=== PATIENT | male | born 1960 | race Caucasian/White ===

== ENCOUNTER 2016-07-06 09:27 | Inpatient (IN) | payer OTHER ==
[~2016-07-06] VITALS: Ht 170.2 cm; Wt 75.0 kg
[2016-07-06] VITALS (24 sets, daily range): BP systolic 125–150; BP diastolic 73–89; PULSE 60–80; RESP 14–26; Ht 170.2 cm; Wt 75.0 kg
[~2016-07-06 09:27] MED LIST: AMPICILLIN/SULB 3 GM/NS (PMX) 100 ML IVPB SCH; Metronidazole 500 MG in NS 100 ML IVPB SCH
[2016-07-06] MEDS ORDERED: IBUP-1542 PO (11:05)
[2016-07-06] MEDS ORDERED: PANT40TA4 PO (11:05)
[2016-07-06] MEDS ORDERED: ATEN-51 PO (11:05)
[2016-07-06] MEDS ORDERED: LEVO75TA5 PO (11:05)
[2016-07-06] MEDS ORDERED: FENO45CA2 PO (11:05)
[2016-07-06] MEDS ORDERED: OMEP20CA16 PO (11:05)
[2016-07-06] MEDS ORDERED: TRAZ100T15 PO (11:05)
[2016-07-06] MEDS ORDERED: SIMV40TA2 PO (11:05)
[2016-07-06] MEDS ORDERED: LIDOCAINE 2% (SDV) 5 ML INJ ONE (16:32)
[2016-07-06] MEDS ORDERED: GLYCOPYRROLATE 0.4 MG INJ ONE ×2 (16:32→17:01)
[2016-07-06] MEDS ORDERED: MEPERIDINE 100 MG INJ ONE (16:32)
[2016-07-06] MEDS ORDERED: ROCURONIUM 50 MG INJ ONE (16:32)
[2016-07-06] MEDS ORDERED: NEOSTIGMINE 3 MG/3 ML SYRINGE ONE ×2 (16:32→17:01)
[2016-07-06] MEDS ORDERED: PROPOFOL 20 ML ONE (16:32)
[2016-07-06] MEDS ORDERED: SUCCINYLCHOLINE CHLORIDE 100 MG/5 ML SYG IV ONE (16:32)
[2016-07-06] MEDS ORDERED: BUPIVACAINE 0.25% (MPF) 30 ML INJ ONE (19:15)
[2016-07-06] MEDS: SOD CHLORIDE 0.9% 1,000 ML IV SCH ×2 (19:20→22:00)
[2016-07-06] MEDS ORDERED: AMPICILLIN/SULB 3 GM/NS (PMX) 100 ML IVPB SCH (19:30)
[2016-07-06] MEDS ORDERED: metroNIDAZOLE 500 MG/NS (PMX) 100 ML IVPB SCH (19:30)
[2016-07-06] MEDS ORDERED: FENTAnyl 50 MCG/ML VIAL ONE (19:51)
[2016-07-06] MEDS ORDERED: HYDROmorphONE (0.2 MG/ML) 10ML SYG IV ONE (19:51)
[2016-07-06] MEDS: FENTAnyl 50 MCG/ML VIAL IV PRN ×2 (19:59→20:28)
[2016-07-06] MEDS: HYDROmorphONE (0.2 MG/ML) 10ML SYG IV PRN ×2 (19:59→20:27)
[2016-07-06] MEDS ORDERED: morphine (1 MG/ML) 10ML SYRINGE IV PRN ×2 (20:00)
[2016-07-06] MEDS ORDERED: LABETALOL HCL 20MG INJ IV PRN (20:00)
[2016-07-06] MEDS ORDERED: METOCLOPRAMIDE 10 MG INJ IV PRN (20:00)
[2016-07-06] MEDS ORDERED: NALOXONE (0.4 MG/ML) INJ IV PRN (20:00)
[2016-07-06] MEDS ORDERED: ONDANSETRON 4 MG INJ IV PRN (20:00)
[2016-07-06] MEDS ORDERED: EPHEDrine SULFATE 50 MG/5 ML SYG IV PRN (20:00)
[2016-07-06] MEDS ORDERED: DIPHENHYDRAMINE 50 MG INJ IV PRN (20:00)
[2016-07-06] MEDS ORDERED: HYDROmorphONE (0.2 MG/ML) 10ML SYG IV PRN (20:00)
[2016-07-06] MEDS ORDERED: FENTAnyl 50 MCG/ML VIAL IV PRN (20:00)
[2016-07-06] MEDS ORDERED: hydrALAzine 20 MG INJ IV PRN (20:00)
[2016-07-06] MEDS ORDERED: MEPERIDINE 25 MG INJ IV PRN (20:00)
[2016-07-06] MEDS ORDERED: KETOROLAC 30 MG INJ IV PRN (20:00)
[2016-07-06] MEDS ORDERED: MIDAZOLAM 1 MG/ML 2 ML INJ IV PRN (20:00)
--- NOTE | 2016-07-06 20:17 | OPR ---
DATE OF OPERATION: 07/06/2016 INDICATION: This is a 55-year-old male with colostomy, he is somewhat a poor historian. However, beau freeman had a colon infection and ended up with an end colostomy. He underwent preoperative imaging with a barium enema and colostomy with contrast showing a loop colostomy. Risks, alternatives, benefits, and personnel were discussed with the patient. The patient expressed understanding and consents to the operation. PREOPERATIVE DIAGNOSIS: Colostomy status. POSTOPERATIVE DIAGNOSIS: Colostomy status. OPERATION PERFORMED: 1. Exploratory laparotomy. 2. Lysis of adhesions approximately 2 hours. 3. Distal partial colectomy. 4. Reversal colostomy with primary colorectal anastomosis. SURGEON: Radha Adkins MD SPECIMEN: Partial colon. COMPLICATIONS: None. ANESTHESIA: General. DESCRIPTION OF PROCEDURE: The patient was taken to the OR and prepped and draped in usual sterile f ashion. Surgical timeout was performed. IV antibiotics were given. Attention was paid to the colo stomy. This was closed with a running 2-0 silk. The colostomy was taken down by excising small 0.5 cm tissue around the colostomy site and all the way down to the fascia. The midline incision was o pened after excising the midline cicatrix. Dissection cautery was carried down to the fascia. The fascia was opened, grasped with Kochers on each side of midline, and sharply with a 10 blade. This incision was opened up in the midline. There appeared to be multiple areas of severe adhesions and there were 2 enterotomies that were closed primarily with a 2-layer technique with running 3-0 PDS a nd interrupted 3-0 silk. The colostomy takedown was performed. The colostomy site was closed with running #1 PDS. The afferent and efferent portions of the colostomy were identified. This area was reanastomosed using a [id number] functional end-to-end using a 75 mm blue load YAEL stapler. The distal colostomy and colon was then resected using scissors. Hemostasis was established. The resul tant enterotomy from the anastomosis was closed with a 2-layer handsewn technique with running 3-0 P DS and interrupted 3-0 silk. There was good hemostasis. Due to minimal spillage, a #19 Jl drain was placed in the right lower quadrant. There was good anastomosis. The midline incision was clos ed with a running loop PDS from superior to inferior and inferior to superior. The skin was closed after Betadine with skin erick. The ostomy site was irrigated with Betadine and then closed parti ally with a running circular 2-0 Vicryl. This area was packed. Local anesthesia was injected to al l incision sites. Dry dressings were applied. Dictated By: RADHA ADKINS MD SB/INOCENCIO Conf#: [id number] DID#: [id number] CC: CAITLIN LEE MD;*EndCC*
[2016-07-06] MEDS: morphine 1 MG/ML 30 ML (PCA) IV SCH (20:32)
[2016-07-06] MEDS: LACTATED RINGER'S 1,000 ML IV SCH (22:30)
[2016-07-06 23:13] LABS: ADD SCAN DIFF NO
[2016-07-06 23:14] LABS: BASOPHILS % 0.2 % (0.0-2.0); EOSINOPHILS % 0.2 % (0.0-7.0); HEMATOCRIT 38.7 % (42.0-52.0); HEMOGLOBIN 13.3 g/dl (14.0-18.0); LYMPHOCYTES # 1.1 10^3/ul (0.8-2.9); LYMPHOCYTES % 8.5 % (15.0-51.0); MEAN CORPUSCULAR HEMOGLOBIN 30.3 pg (29.0-33.0); MEAN CORPUSCULAR HGB CONC 34.4 g/dl (32.0-37.0); MEAN CORPUSCULAR VOLUME 88.2 fl (82.0-101.0); MEAN PLATELET VOLUME 9.7 fl (7.4-10.4); MONOCYTE # 0.8 10^3/ul (0.3-0.9); MONOCYTES % 5.9 % (0.0-11.0); NEUTROPHILS % 84.9 % (39.0-77.0); PLATELET COUNT 276 10^3/UL (140-415); RED BLOOD COUNT 4.39 10^6/ul (4.70-6.10); RED CELL DISTRIBUTION WIDTH 12.7 % (11.5-14.5); WHITE BLOOD COUNT 12.9 10^3/ul (4.8-10.8)
[2016-07-06 23:23] LABS: ALBUMIN 4.1 g/dl (3.3-4.9); POTASSIUM 3.7 mmol/L (3.5-5.1)
[2016-07-06 23:26] LABS: ALBUMIN/GLOBULIN RATIO 1.28; BILIRUBIN,INDIRECT 1.5 mg/dl (0-1.1); BILIRUBIN,TOTAL 1.5 mg/dl (0.2-1.3); CREATININE 0.69 mg/dl (0.61-1.24); TOTAL PROTEIN 7.3 g/dl (6.1-8.1)
[2016-07-06 23:27] LABS: CALCIUM 8.4 mg/dl (8.4-10.2)
[2016-07-06] MEDS: metroNIDAZOLE 500 MG/NS (PMX) 100 ML IVPB SCH (23:57)
[2016-07-07 00:03] VITALS: BP 134/79; RESP 20
[2016-07-07] MEDS: AMPICILLIN/SULB 3 GM/NS (PMX) 100 ML IVPB SCH ×5 (01:23→17:00)
[2016-07-07] MEDS: LACTATED RINGER'S 1,000 ML IV SCH ×3 (04:57→16:59)
[2016-07-07 05:42] LABS: ADD SCAN DIFF NO
[2016-07-07 05:47] LABS: BASOPHILS % 0.2 % (0.0-2.0); HEMATOCRIT 39.8 % (42.0-52.0); HEMOGLOBIN 13.3 g/dl (14.0-18.0); LYMPHOCYTES # 0.8 10^3/ul (0.8-2.9); LYMPHOCYTES % 6.3 % (15.0-51.0); MEAN CORPUSCULAR HEMOGLOBIN 29.7 pg (29.0-33.0); MEAN CORPUSCULAR HGB CONC 33.4 g/dl (32.0-37.0); MEAN CORPUSCULAR VOLUME 88.8 fl (82.0-101.0); MEAN PLATELET VOLUME 9.8 fl (7.4-10.4); MONOCYTE # 0.8 10^3/ul (0.3-0.9); MONOCYTES % 6.1 % (0.0-11.0); NEUTROPHIL # 10.9 10^3/ul (1.6-7.5); NEUTROPHILS % 87.1 % (39.0-77.0); PLATELET COUNT 300 10^3/UL (140-415); RED BLOOD COUNT 4.48 10^6/ul (4.70-6.10); RED CELL DISTRIBUTION WIDTH 12.7 % (11.5-14.5); WHITE BLOOD COUNT 12.5 10^3/ul (4.8-10.8)
[2016-07-07 06:52] LABS: ALBUMIN 4.3 g/dl (3.3-4.9)
[2016-07-07 06:55] LABS: ALBUMIN/GLOBULIN RATIO 1.22; BILIRUBIN,INDIRECT 1.5 mg/dl (0-1.1); BILIRUBIN,TOTAL 1.5 mg/dl (0.2-1.3); CREATININE 0.64 mg/dl (0.61-1.24); TOTAL PROTEIN 7.8 g/dl (6.1-8.1)
[2016-07-07 06:56] LABS: CALCIUM 8.7 mg/dl (8.4-10.2)
[2016-07-07] MEDS: morphine 1 MG/ML 30 ML (PCA) IV SCH ×2 (07:36→22:08)
[2016-07-07] MEDS: metroNIDAZOLE 500 MG/NS (PMX) 100 ML IVPB SCH ×3 (07:55→23:16)
[2016-07-07 08:24] VITALS: BP 119/77; RESP 18
--- NOTE | 2016-07-07 09:17 | PN ---
Date/Time of Note Date/Time of Note DATE: 07/07/16 TIME: 09:16 Assessment/Plan VTE Prophylaxis VTE Prophylaxis Intervention: SCD's Lines/Catheters IV Catheter Type (from Nrs): Peripheral IV Urinary Cath still in place: Yes Reason Cath still needed: other (indicate) Assessment/Plan Chief Complaint/Hosp Course s/p exp lap reversal of colostomy Problems: Assessment/Plan await bowel function Subjective 24 Hr Interval Summary Free Text/Dictation no issues overnight doing well Exam/Review of Systems Vital Signs Vitals Vital Signs Date Time Temp Pulse Resp B/P Pulse Ox O2 Delivery O2 Flow Rate FiO2 07/07/16 08:24 98.1 87 18 119/77 97 07/06/16 23:00 Nasal Cannula 2.0 Intake and Output 07/06/16 07/06/16 07/07/16 15:00 23:00 07:00 Intake Total 700 ml Output Total 535 ml 1035 ml Balance -535 ml -335 ml Exam dressing intact Results Result Diagram: 07/07/16 0452 07/07/16 0452 Results 24 hrs Laboratory Tests Test 07/06/16 22:45 07/07/16 04:52 White Blood Count 12.9 H 12.5 H Red Blood Count 4.39 L 4.48 L Hemoglobin 13.3 L 13.3 L Hematocrit 38.7 L 39.8 L Mean Corpuscular Volume 88.2 88.8 Mean Corpuscular Hemoglobin 30.3 29.7 Mean Corpuscular Hemoglobin Concent 34.4 33.4 Red Cell Distribution Width 12.7 12.7 Platelet Count 276 300 Mean Platelet Volume 9.7 9.8 Neutrophils % 84.9 H 87.1 H Lymphocytes % 8.5 L 6.3 L Monocytes % 5.9 6.1 Eosinophils % 0.2 0.0 Basophils % 0.2 0.2 Nucleated Red Blood Cells % 0.0 0.0 Neutrophils # 11.0 H 10.9 H Lymphocytes # 1.1 0.8 Monocytes # 0.8 0.8 Eosinophils # 0.0 0.0 Basophils # 0.0 0.0 Nucleated Red Blood Cells # 0.0 0.0 Sodium Level 140 141 Potassium Level 3.7 4.0 Chloride Level 106 103 Carbon Dioxide Level 24 25 Anion Gap 14 17 H Blood Urea Nitrogen 6 L 7 Creatinine 0.69 0.64 Glucose Level 181 162 Calcium Level 8.4 8.7 Total Bilirubin 1.5 H 1.5 H Direct Bilirubin 0.00 0.00 Indirect Bilirubin 1.5 H 1.5 H Aspartate Amino Transf (AST/SGOT) 26 29 Alanine Aminotransferase (ALT/SGPT) 29 26 Alkaline Phosphatase 74 70 Total Protein 7.3 7.8 Albumin 4.1 4.3 Globulin 3.20 3.50 H Albumin/Globulin Ratio 1.28 1.22 Medications Medications Current Medications Lactated Ringer's (Lr) 1,000 ml @ 100 mls/hr Q10H IV Last administered on 04:57; Admin Dose 100 MLS/HR; Start 07/06/16 at 19:21 Naloxone HCl (Narcan) 0.2 mg PRN PRN IV DECREASED REPIRATORY RATE; Start at 20:00 Morphine Sulfate (morphine) Q4PCA IV Last administered on 07/07/16 07:36; Admin Dose 30 MG; Start 07/06/16 at 20:00 Oxycodone/ Acetaminophen (Percocet (5/ 325)) 1 tab Q4H PRN PO PAIN LEVEL 1-5; Start 07/06/16 at 20:00 Oxycodone/ Acetaminophen (Percocet (5/ 325)) 2 tab Q4H PRN PO PAIN LEVEL 6-10; Start 07/06/16 at 20:00 Ketorolac Tromethamine (Toradol) 30 mg Q6H PRN IV PAIN; Start 07/06/16 at 20:00 ; Stop 07/09/16 at 19:59 Ondansetron HCl (Zofran Inj) 4 mg Q6H PRN IV NAUSEA AND/OR VOMITING; Start 07/06 at 20:00 Diphenhydramine HCl (Benadryl) 25 mg Q6H PRN IV ITCHING; Start 07/06/16 at 20:00 Miscellaneous Information 1. Discontinue TRUCK CHAUFFEUR... TRUCK CHAUFFEUR IV ; Start 07/06/16 at 20:00 Metronidazole 100 ml @ 100 mls/hr Q8H IVPB Last administered on 07/07/16 07:55 ; Admin Dose 100 MLS/HR; Start 07/06/16 at 23:30; Stop 07/11/16 at 23:29 Ampicillin Sodium/ Sulbactam Sodium (Unasyn 3gm/NS (Pmx)) 100 ml @ 200 mls/hr Q6 IVPB Last administered on 07/07/16t 06:39; Admin Dose 200 MLS/HR; Start at 06:30; Stop 07/11/16 at 06:29 Lorenzo ALEGRE Jul 07, 2016 09:17
--- NOTE | 2016-07-07 12:45 | PN ---
Date/Time of Note Date/Time of Note DATE: 07/07/16 TIME: 12:26 Assessment/Plan VTE Prophylaxis VTE Prophylaxis Intervention: SCD's Lines/Catheters IV Catheter Type (from Nrsg): Peripheral IV Urinary Cath still in place: Yes Reason Cath still needed: other (indicate) (post op ) Assessment/Plan Assessment/Plan 55-year-old male: 1. Status post reversal of colostomy, POD# 1, patient n.p.o. with MERCURY PURIFIER for pain control Further recommendations per Dr. Robledo 2. Hypertension: Resume atenolol once patient able to take p.o. patient remains normotensive for now. 3. Gastroesophageal reflux disease: Continue on pump inhibitors 4. Hyperlipidemia: Resume statin therapy once patient able to take p.o. 5. Hypothyroidism: Resume Synthroid Prophylaxis: SCDs for DVT prophylaxis, Protonix for GI prophylaxis Disposition: Per general surgery Subjective 24 Hr Interval Summary Free Text/Dictation Patient doing OK POD#1 NPO and on MERCURY PURIFIER for pain control Exam/Review of Systems Vital Signs Vitals Vital Signs Date Time Temp Pulse Resp B/P Pulse Ox O2 Delivery O2 Flow Rate FiO2 07/07/16 08:24 98.1 87 18 119/77 97 07/06/16 23:00 Nasal Cannula 2.0 Intake and Output 07/06/16 07/06/16 07/07/16 15:00 23:00 07:00 Intake Total 700 ml Output Total 535 ml 1035 ml Balance -535 ml -335 ml Exam Constitutional: alert, oriented, well developed Respiratory: clear to auscultation, normal air movement Cardiovascular: nl pulses, regular rate and rhythm Gastrointestinal: non-tender, soft Musculoskeletal: nl extremities to inspection Extremities: normal pulses, other (no edema, clubbing or cyanosis ) Neurological: ELECTRIC CUTTER OPERATOR II-XII intact, nl mental status, nl speech, other (in bed for now ) Results Result Diagram: 07/07/16 0452 07/07/16 0452 Results 24 hrs Laboratory Tests Test 07/06/16 22:45 07/07/16 04:52 White Blood Count 12.9 H 12.5 H Red Blood Count 4.39 L 4.48 L Hemoglobin 13.3 L 13.3 L Hematocrit 38.7 L 39.8 L Mean Corpuscular Volume 88.2 88.8 Mean Corpuscular Hemoglobin 30.3 29.7 Mean Corpuscular Hemoglobin Concent 34.4 33.4 Red Cell Distribution Width 12.7 12.7 Platelet Count 276 300 Mean Platelet Volume 9.7 9.8 Neutrophils % 84.9 H 87.1 H Lymphocytes % 8.5 L 6.3 L Monocytes % 5.9 6.1 Eosinophils % 0.2 0.0 Basophils % 0.2 0.2 Nucleated Red Blood Cells % 0.0 0.0 Neutrophils # 11.0 H 10.9 H Lymphocytes # 1.1 0.8 Monocytes # 0.8 0.8 Eosinophils # 0.0 0.0 Basophils # 0.0 0.0 Nucleated Red Blood Cells # 0.0 0.0 Sodium Level 140 141 Potassium Level 3.7 4.0 Chloride Level 106 103 Carbon Dioxide Level 24 25 Anion Gap 14 17 H Blood Urea Nitrogen 6 L 7 Creatinine 0.69 0.64 Glucose Level 181 162 Calcium Level 8.4 8.7 Total Bilirubin 1.5 H 1.5 H Direct Bilirubin 0.00 0.00 Indirect Bilirubin 1.5 H 1.5 H Aspartate Amino Transf (AST/SGOT) 26 29 Alanine Aminotransferase (ALT/SGPT) 29 26 Alkaline Phosphatase 74 70 Total Protein 7.3 7.8 Albumin 4.1 4.3 Globulin 3.20 3.50 H Albumin/Globulin Ratio 1.28 1.22 Medications Medications Current Medications Lactated Ringer's (Lr) 1,000 ml @ 100 mls/hr Q10H IV Last administered on 04:57; Admin Dose 100 MLS/HR; Start 07/06/16 at 19:21 Naloxone HCl (Narcan) 0.2 mg PRN PRN IV DECREASED REPIRATORY RATE; Start at 20:00 Morphine Sulfate (morphine) Q4PCA IV Last administered on 07/07/16 07:36; Admin Dose 30 MG; Start 07/06/16 at 20:00 Oxycodone/ Acetaminophen (Percocet (5/ 325)) 1 tab Q4H PRN PO PAIN LEVEL 1-5; Start 07/06/16 at 20:00 Oxycodone/ Acetaminophen (Percocet (5/ 325)) 2 tab Q4H PRN PO PAIN LEVEL 6-10; Start 07/06/16 at 20:00 Ketorolac Tromethamine (Toradol) 30 mg Q6H PRN IV PAIN; Start 07/06/16 at 20:00 ; Stop 07/09/16 at 19:59 Ondansetron HCl (Zofran Inj) 4 mg Q6H PRN IV NAUSEA AND/OR VOMITING; Start 07/06 at 20:00 Diphenhydramine HCl (Benadryl) 25 mg Q6H PRN IV ITCHING; Start 07/06/16 at 20:00 Miscellaneous Information 1. Discontinue MERCURY PURIFIER... MERCURY PURIFIER IV ; Start 07/06/16 at 20:00 Metronidazole 100 ml @ 100 mls/hr Q8H IVPB Last administered on 07/07/16 07:55 ; Admin Dose 100 MLS/HR; Start 07/06/16 at 23:30; Stop 07/11/16 at 23:29 Ampicillin Sodium/ Sulbactam Sodium (Unasyn 3gm/NS (Pmx)) 100 ml @ 200 mls/hr Q6 IVPB Last administered on 07/07/16 06:39; Admin Dose 200 MLS/HR; Start at 06:30; Stop 07/11/16 at 06:29 MARY CHAVEZ Jul 07, 2016 12:36
[2016-07-07 12:53] VITALS: BP 125/76; PULSE 88; RESP 18
[2016-07-07 20:33] VITALS: BP 147/88; RESP 20
[2016-07-08] MEDS: AMPICILLIN/SULB 3 GM/NS (PMX) 100 ML IVPB SCH ×4 (00:27→18:23)
[2016-07-08 00:37] VITALS: BP 131/78; PULSE 78; RESP 18
[2016-07-08 04:41] VITALS: BP 129/86; PULSE 106; RESP 18
[2016-07-08] MEDS: PANTOPRAZOLE 40 MG INJ IV SCH (05:12)
[2016-07-08] MEDS: LACTATED RINGER'S 1,000 ML IV SCH ×4 (05:12→23:10)
[2016-07-08 05:40] LABS: ADD SCAN DIFF NO
[2016-07-08 05:48] LABS: BASOPHILS % 0.1 % (0.0-2.0); EOSINOPHILS % 0.3 % (0.0-7.0); HEMOGLOBIN 12.3 g/dl (14.0-18.0); LYMPHOCYTES # 1.4 10^3/ul (0.8-2.9); LYMPHOCYTES % 14.1 % (15.0-51.0); MEAN CORPUSCULAR HEMOGLOBIN 30.1 pg (29.0-33.0); MEAN CORPUSCULAR HGB CONC 33.2 g/dl (32.0-37.0); MEAN CORPUSCULAR VOLUME 90.5 fl (82.0-101.0); MEAN PLATELET VOLUME 10.1 fl (7.4-10.4); MONOCYTE # 0.9 10^3/ul (0.3-0.9); MONOCYTES % 8.7 % (0.0-11.0); NEUTROPHIL # 7.6 10^3/ul (1.6-7.5); NEUTROPHILS % 76.5 % (39.0-77.0); PLATELET COUNT 270 10^3/UL (140-415); RED BLOOD COUNT 4.09 10^6/ul (4.70-6.10); RED CELL DISTRIBUTION WIDTH 13.1 % (11.5-14.5)
[2016-07-08 06:02] LABS: POTASSIUM 4.4 mmol/L (3.5-5.1)
[2016-07-08 06:05] LABS: CREATININE 0.75 mg/dl (0.61-1.24)
[2016-07-08 06:06] LABS: CALCIUM 8.7 mg/dl (8.4-10.2); MAGNESIUM 1.8 mg/dl (1.7-2.5); PHOSPHORUS 2.6 mg/dl (2.5-4.9)
[2016-07-08] MEDS: DIPHENHYDRAMINE 50 MG INJ IV PRN (06:18)
[2016-07-08] MEDS: metroNIDAZOLE 500 MG/NS (PMX) 100 ML IVPB SCH ×3 (06:18→23:07)
[2016-07-08] MEDS ORDERED: LEVOTHYROXINE 75 MCG TAB PO SCH (07:00)
[2016-07-08 08:36] VITALS: BP 126/82; RESP 18
[2016-07-08] MEDS ORDERED: ATENOLOL 25 MG TAB PO SCH (09:00)
--- NOTE | 2016-07-08 10:57 | PN ---
Date/Time of Note Date/Time of Note DATE: 07/08/16 TIME: 10:56 Assessment/Plan VTE Prophylaxis VTE Prophylaxis Intervention: SCD's Lines/Catheters IV Catheter Type (from Nrs): Peripheral IV Urinary Cath still in place: Yes Reason Cath still needed: other (indicate) (surgery) Assessment/Plan Chief Complaint/Hosp Course s/p exp lap reversal of colostomy with severe adhesions and difficult operation Problems: Assessment/Plan await until flatus, no po until then Subjective 24 Hr Interval Summary Free Text/Dictation patient without flatus, no other issues Exam/Review of Systems Vital Signs Vitals Vital Signs Date Time Temp Pulse Resp B/P Pulse Ox O2 Delivery O2 Flow Rate FiO2 07/08/16 08:36 98.2 99 18 126/82 98 07/08/16 04:41 Nasal Cannula 2.0 Intake and Output 07/07/16 07/07/16 07/08/16 15:00 23:00 07:00 Intake Total 300 ml 800 ml 1200 ml Output Total 1000 ml 760 ml Balance 300 ml -200 ml 440 ml Exam open old colostomy site, midline clean, drain in place Results Result Diagram: 07/08/16 0428 07/08/16 0428 Results 24 hrs Laboratory Tests Test 07/08/16 04:28 White Blood Count 10.0 Red Blood Count 4.09 L Hemoglobin 12.3 L Hematocrit 37.0 L Mean Corpuscular Volume 90.5 Mean Corpuscular Hemoglobin 30.1 Mean Corpuscular Hemoglobin Concent 33.2 Red Cell Distribution Width 13.1 Platelet Count 270 Mean Platelet Volume 10.1 Neutrophils % 76.5 Lymphocytes % 14.1 L Monocytes % 8.7 Eosinophils % 0.3 Basophils % 0.1 Nucleated Red Blood Cells % 0.0 Neutrophils # 7.6 H Lymphocytes # 1.4 Monocytes # 0.9 Eosinophils # 0.0 Basophils # 0.0 Nucleated Red Blood Cells # 0.0 Sodium Level 141 Potassium Level 4.4 Chloride Level 100 Carbon Dioxide Level 28 Anion Gap 17 H Blood Urea Nitrogen 10 Creatinine 0.75 Glucose Level 107 # Calcium Level 8.7 Phosphorus Level 2.6 Magnesium Level 1.8 Medications Medications Current Medications Lactated Ringer's (Lr) 1,000 ml @ 100 mls/hr Q10H IV Last administered on t 05:12; Admin Dose 100 MLS/HR; Start 07/06/16 at 19:21 Naloxone HCl (Narcan) 0.2 mg PRN PRN IV DECREASED REPIRATORY RATE; Start at 20:00 Morphine Sulfate (morphine) Q4PCA IV Last administered on 07/07/16 22:08; Admin Dose 30 MG; Start 07/06/16 at 20:00 Oxycodone/ Acetaminophen (Percocet (5/ 325)) 1 tab Q4H PRN PO PAIN LEVEL 1-5; Start 07/06/16 at 20:00 Oxycodone/ Acetaminophen (Percocet (5/ 325)) 2 tab Q4H PRN PO PAIN LEVEL 6-10; Start 07/06/16 at 20:00 Ketorolac Tromethamine (Toradol) 30 mg Q6H PRN IV PAIN; Start 07/06/16 at 20:00 ; Stop 07/09/16 at 19:59 Ondansetron HCl (Zofran Inj) 4 mg Q6H PRN IV NAUSEA AND/OR VOMITING; Start 07/06 at 20:00 Diphenhydramine HCl (Benadryl) 25 mg Q6H PRN IV ITCHING Last administered on 06:18; Admin Dose 25 MG; Start 07/06/16 at 20:00 Miscellaneous Information 1. Discontinue MINUTE CLERK... MINUTE CLERK IV ; Start 07/06/16 at 20:00 Metronidazole 100 ml @ 100 mls/hr Q8H IVPB Last administered on 07/08/16 06:18 ; Admin Dose 100 MLS/HR; Start 07/06/16 at 23:30; Stop 07/11/16 at 23:29 Ampicillin Sodium/ Sulbactam Sodium (Unasyn 3gm/NS (Pmx)) 100 ml @ 200 mls/hr Q6 IVPB Last administered on 07/08/16 05:13; Admin Dose 200 MLS/HR; Start at 06:30; Stop 07/11/16 at 06:29 Atenolol (Tenormin) 25 mg DAILY PO Last administered on 07/08/16 09:24; Admin Dose 25 MG; Start 07/08/16 at 09:00 Pantoprazole (Protonix Iv) 40 mg DAILY@06 IV Last administered on 07/08/16 05: 12; Admin Dose 40 MG; Start 07/08/16 at 06:00 Lorenzo ALEGRE Jul 08, 2016 10:57
[2016-07-08] MEDS: morphine 1 MG/ML 30 ML (PCA) IV SCH (11:41)
--- NOTE | 2016-07-08 14:26 | PN ---
Date/Time of Note Date/Time of Note DATE: 07/08/16 TIME: 14:26 Assessment/Plan VTE Prophylaxis VTE Prophylaxis Intervention: ambulation, SCD's Lines/Catheters IV Catheter Type (from Nrsg): Peripheral IV Urinary Cath still in place: Yes Reason Cath still needed: other (indicate) (monitor UOP ) Assessment/Plan Assessment/Plan 55-year-old male: 1. Status post reversal of colostomy, POD# 2, patient n.p.o. with AIRWORTHINESS SAFETY INSPECTOR for pain control. Still no flatus and n.p.o. per surgery Further recommendations per surgeon Dr Adkins. 2. Hypertension: Resume atenolol once patient able to take p.o. patient remains normotensive for now. 3. Gastroesophageal reflux disease: Continue on pump inhibitors 4. Hyperlipidemia: Resume statin therapy once patient able to take p.o. 5. Hypothyroidism: Resume Synthroid Prophylaxis: SCDs for DVT prophylaxis, Protonix for GI prophylaxis Disposition: Per general surgery patient to still remain n.p.o. as no flatus so far, needs to ambulate Subjective 24 Hr Interval Summary Free Text/Dictation Patient doing well, still on morphine AIRWORTHINESS SAFETY INSPECTOR, no flatness, n.p.o. per surgery Need to get up sitting the chair and encourage ambulation. He remains afebrile, no shortness of breath Exam/Review of Systems Vital Signs Vitals Vital Signs Date Time Temp Pulse Resp B/P Pulse Ox O2 Delivery O2 Flow Rate FiO2 07/08/16 08:36 98.2 99 18 126/82 98 07/08/16 04:41 Nasal Cannula 2.0 Intake and Output 07/07/16 07/07/16 07/08/16 14:59 22:59 06:59 Intake Total 300 ml 800 ml 1200 ml Output Total 1000 ml 760 ml Balance 300 ml -200 ml 440 ml Exam Constitutional: alert, oriented, well developed Respiratory: clear to auscultation, normal air movement Cardiovascular: nl pulses, regular rate and rhythm Gastrointestinal: other (Decreased bowel sounds), soft, tender (Diffuse tenderness to palpation at postoperative site controlled with AIRWORTHINESS SAFETY INSPECTOR) Musculoskeletal: nl extremities to inspection Extremities: normal pulses, other (No edema, clubbing or cyanosis) Neurological: PROGRAM DIRECTOR GROUP WORK II-XII intact, nl mental status, nl speech, nl strength Results Result Diagram: 07/08/1642707/08/16427 Results 24 hrs Laboratory Tests Test 07/08/16 04:28 White Blood Count 10.0 Red Blood Count 4.09 L Hemoglobin 12.3 L Hematocrit 37.0 L Mean Corpuscular Volume 90.5 Mean Corpuscular Hemoglobin 30.1 Mean Corpuscular Hemoglobin Concent 33.2 Red Cell Distribution Width 13.1 Platelet Count 270 Mean Platelet Volume 10.1 Neutrophils % 76.5 Lymphocytes % 14.1 L Monocytes % 8.7 Eosinophils % 0.3 Basophils % 0.1 Nucleated Red Blood Cells % 0.0 Neutrophils # 7.6 H Lymphocytes # 1.4 Monocytes # 0.9 Eosinophils # 0.0 Basophils # 0.0 Nucleated Red Blood Cells # 0.0 Sodium Level 141 Potassium Level 4.4 Chloride Level 100 Carbon Dioxide Level 28 Anion Gap 17 H Blood Urea Nitrogen 10 Creatinine 0.75 Glucose Level 107 # Calcium Level 8.7 Phosphorus Level 2.6 Magnesium Level 1.8 Medications Medications Current Medications Lactated Ringer's (Lr) 1,000 ml @ 100 mls/hr Q10H IV Last administered on 11:13; Admin Dose 100 MLS/HR; Start 07/06/16 at 19:21 Naloxone HCl (Narcan) 0.2 mg PRN PRN IV DECREASED REPIRATORY RATE; Start at 20:00 Morphine Sulfate (morphine) Q4PCA IV Last administered on 07/08/16 11:41; Admin Dose 30 MG; Start 07/06/16 at 20:00 Oxycodone/ Acetaminophen (Percocet (5/ 325)) 1 tab Q4H PRN PO PAIN LEVEL 1-5; Start 07/06/16 at 20:00 Oxycodone/ Acetaminophen (Percocet (5/ 325)) 2 tab Q4H PRN PO PAIN LEVEL 6-10; Start 07/06/16 at 20:00 Ketorolac Tromethamine (Toradol) 30 mg Q6H PRN IV PAIN; Start 07/06/16 at 20:00 ; Stop 07/09/16 at 19:59 Ondansetron HCl (Zofran Inj) 4 mg Q6H PRN IV NAUSEA AND/OR VOMITING; Start 07/06 at 20:00 Diphenhydramine HCl (Benadryl) 25 mg Q6H PRN IV ITCHING Last administered on 06:18; Admin Dose 25 MG; Start 07/06/16 at 20:00 Miscellaneous Information 1. Discontinue AIRWORTHINESS SAFETY INSPECTOR... AIRWORTHINESS SAFETY INSPECTOR IV ; Start 07/06/16 at 20:00 Metronidazole 100 ml @ 100 mls/hr Q8H IVPB Last administered on 07/08/16 06:18 ; Admin Dose 100 MLS/HR; Start 07/06/16 at 23:30; Stop 07/11/16 at 23:29 Ampicillin Sodium/ Sulbactam Sodium (Unasyn 3gm/NS (Pmx)) 100 ml @ 200 mls/hr Q6 IVPB Last administered on 07/08/16 12:24; Admin Dose 200 MLS/HR; Start at 06:30; Stop 07/11/16 at 06:29 Atenolol (Tenormin) 25 mg DAILY PO Last administered on 07/08/16 09:24; Admin Dose 25 MG; Start 07/08/16 at 09:00 Pantoprazole (Protonix Iv) 40 mg DAILY@06 IV Last administered on 07/08/16 05: 12; Admin Dose 40 MG; Start 07/08/16 at 06:00 MARY CHAVEZ Jul 08, 2016 14:26
[2016-07-08] MEDS ORDERED: LIDOCAINE 1% (MDV) 20 ML INJ SC ONE (15:30)
[2016-07-08 16:58] VITALS: BP 130/74; PULSE 92; RESP 18
[2016-07-08 19:00] VITALS: BP 141/85; RESP 19
[2016-07-08] MEDS ORDERED: hydrALAzine 20 MG INJ IV PRN (20:30)
[2016-07-09] VITALS: BP 151/89; RESP 18
[2016-07-09] MEDS: AMPICILLIN/SULB 3 GM/NS (PMX) 100 ML IVPB SCH ×4 (00:33→18:56)
[2016-07-09] MEDS: morphine 1 MG/ML 30 ML (PCA) IV SCH ×2 (04:02→20:43)
[2016-07-09 05:43] LABS: MAGNESIUM 1.6 mg/dl (1.7-2.5); PHOSPHORUS 2.6 mg/dl (2.5-4.9)
[2016-07-09 05:51] LABS: CREATININE 0.59 mg/dl (0.61-1.24)
[2016-07-09] MEDS ORDERED: LEVOTHYROXINE 100 MCG VIAL IV SCH (06:00)
[2016-07-09] MEDS: PANTOPRAZOLE 40 MG INJ IV SCH (06:00)
[2016-07-09] MEDS: LEVOTHYROXINE 200 MCG VIAL IV SCH (06:01)
[2016-07-09 06:08] VITALS: BP 129/75; PULSE 94; RESP 18
[2016-07-09 07:40] VITALS: BP 121/83; RESP 16
[2016-07-09] MEDS: metroNIDAZOLE 500 MG/NS (PMX) 100 ML IVPB SCH ×3 (07:52→23:00)
--- NOTE | 2016-07-09 11:03 | PN ---
Date/Time of Note Date/Time of Note DATE: 07/09/16 TIME: 10:53 Assessment/Plan VTE Prophylaxis VTE Prophylaxis Intervention: SCD's Lines/Catheters IV Catheter Type (from Nrs): Peripheral IV Urinary Cath still in place: No Assessment/Plan Assessment/Plan [facility] 1. Day 3 s/p laparoscopic reveral of previous colostomy for this 55-year-old man * NPO for all orals, including medications. * Fluid support with lactated Ringers at 100cc/hr. 2. Hypertension * Started on hydralazine PRN for SBP > 150 3. Gastroesophageal reflux disease * Protonix IV 40mg daily 4. Hyperlipidemia * Hold statin for now. 5. Hypothyroidism * Synthroid switched to IV 6. Hypokalemia at 3.0 today. * IV replacement this morning. 7. Prophylaxis: SCDs for DVT prophylaxis, Protonix for GI prophylaxis 8. Disposition: Per general surgery patient to still remain n.p.o. as no flatus so far * Encourage ambulation * Up to chair * Practiced using his incentive spirometer * Full-Code Robin Scott MD PhD [phone] Subjective 24 Hr Interval Summary Free Text/Dictation One friend at bedside this morning. Patient doing well, switched overnight to IV morphine. Still NPO per surgery, but feels hungry. No bowel movement yet. No active pain complaints or shortness of breath. Enthusiastically using his incentive spirometer. Exam/Review of Systems Vital Signs Vitals Vital Signs Date Time Temp Pulse Resp B/P Pulse Ox O2 Delivery O2 Flow Rate FiO2 07/09/16 07:40 98.0 97 16 121/83 94 07/09/16 06:08 Nasal Cannula 07/08/16 16:58 2.0 Intake and Output 07/08/16 07/08/16 07/09/16 15:00 23:00 07:00 Intake Total 300 ml 500 ml 1300 ml Output Total 355 ml 910 ml Balance 300 ml 145 ml 390 ml Exam Constitutional: Alert, oriented, well developed, sleepy but conversant Respiratory: Clear to auscultation, normal air movement Cardiovascular: Symmetric pulses, regular rhythm, normal rate. No murmur. Gastrointestinal: Mild bowel sounds, soft, diffuse tenderness, dry midline bandage in place. Musculoskeletal: nl extremities to inspection with no edema. Neurological: Neutral affect, HEMATOLOGY SPECIALIST II-XII intact, normal mental status and speech, moving all extremities. Skin: No rash. Results Result Diagram: 07/08/16 0428 07/09/16 0442 Results 24 hrs Laboratory Tests Test 07/09/16 04:42 Sodium Level 140 Potassium Level 3.0 L Chloride Level 99 Carbon Dioxide Level 27 Anion Gap 17 H Blood Urea Nitrogen 10 Creatinine 0.59 L Glucose Level 96 Calcium Level 8.0 L Phosphorus Level 2.6 Magnesium Level 1.6 L Medications Medications Current Medications Lactated Ringer's (Lr) 1,000 ml @ 100 mls/hr Q10H IV Last administered on 23:10; Admin Dose 100 MLS/HR; Start 07/06/16 at 19:21 Naloxone HCl (Narcan) 0.2 mg PRN PRN IV DECREASED REPIRATORY RATE; Start at 20:00 Morphine Sulfate (morphine) Q4PCA IV Last administered on 07/09/16 04:02; Admin Dose 30 MG; Start 07/06/16 at 20:00 Oxycodone/ Acetaminophen (Percocet (5/ 325)) 1 tab Q4H PRN PO PAIN LEVEL 1-5; Start 07/06/16 at 20:00 Oxycodone/ Acetaminophen (Percocet (5/ 325)) 2 tab Q4H PRN PO PAIN LEVEL 6-10; Start 07/06/16 at 20:00 Ketorolac Tromethamine (Toradol) 30 mg Q6H PRN IV PAIN; Start 07/06/16 at 20:00 ; Stop 07/09/16 at 19:59 Ondansetron HCl (Zofran Inj) 4 mg Q6H PRN IV NAUSEA AND/OR VOMITING; Start 07/06 at 20:00 Diphenhydramine HCl (Benadryl) 25 mg Q6H PRN IV ITCHING Last administered on 06:18; Admin Dose 25 MG; Start 07/06/16 at 20:00 Miscellaneous Information 1. Discontinue HIGH RIGGER... HIGH RIGGER IV ; Start 07/06/16 at 20:00 Metronidazole 100 ml @ 100 mls/hr Q8H IVPB Last administered on 07/09/16 07:52 ; Admin Dose 100 MLS/HR; Start 07/06/16 at 23:30; Stop 07/11/16 at 23:29 Ampicillin Sodium/ Sulbactam Sodium (Unasyn 3gm/NS (Pmx)) 100 ml @ 200 mls/hr Q6 IVPB Last administered on 07/09/16 06:00; Admin Dose 200 MLS/HR; Start at 06:30; Stop 07/11/16 at 06:29 Pantoprazole (Protonix Iv) 40 mg DAILY@06 IV Last administered on 07/09/16 06: 00; Admin Dose 40 MG; Start 07/08/16 at 06:00 Hydralazine HCl (Apresoline) 10 mg Q6H PRN IV if SBP greater than 150; Start at 20:30 Morphine Sulfate (morphine) 1 mg Q3H PRN IV for mild pain; Start 07/08/16 at 20: 30; Status Future Hold Morphine Sulfate (morphine) 2 mg Q3H PRN IV for moderate to severe pain; Start 07/08/16 at 20:30; Status Future Hold Levothyroxine Sodium (Synthroid Iv) 37.5 mcg DAILY@06 IV Last administered on 06:01; Admin Dose 37.5 MCG; Start 07/09/16 at 06:00 ALEA SCOTT M.D. Jul 09, 2016 11:03
[2016-07-09] MEDS ORDERED: POTASSIUM CHLORIDE 50 ML IVPB ONE (11:30)
--- NOTE | 2016-07-09 13:43 | PN ---
DATE: 07/09/2016 Postop day #3. SUBJECTIVE: No new complaint. No bowel movement, no passing flatus. No nausea, no vomiting. OBJECTIVE: VITAL SIGNS: Temperature 98, pulse rate 97, respirations 16, blood pressure 121/83, saturation 94% on room air. HEART: Regular. LUNGS: Clear. ABDOMEN: Minimally distended, soft, bowel sounds 2+/4+. EXTREMITIES: Legs no calf tenderness. LABORATORY DATA: No CBC today. Chemistry: Potassium is 3, which is low. Anion gap 17. BUN 10, c reatinine 0.59. Magnesium 1.6, low. Urine appearance is tea color, we have to test for bilirubin. ASSESSMENT: Status post laparotomy and reversal of colostomy and partial colon resection, postop da y #3. The patient is stable. The only thing which was of concern is the urine looks very dark brow raulito and I am going to test that one for bilirubin by testing the blood, because on 07/07/2016 the i ndirect bilirubin was 1.5, direct bilirubin was 0.0. PLAN: Get blood test done tomorrow. Get out of bed and walk around. Keep n.p.o. Dictated By: SIRISHA SALEH MD PS/NTS Conf#: [id number] DID#: [id number]
[2016-07-09] MEDS: LACTATED RINGER'S 1,000 ML IV SCH (18:56)
[2016-07-09 20:24] VITALS: BP 135/80; RESP 20
[2016-07-10] MEDS: AMPICILLIN/SULB 3 GM/NS (PMX) 100 ML IVPB SCH ×4 (00:31→18:24)
[2016-07-10] MEDS: LACTATED RINGER'S 1,000 ML IV SCH (03:21)
[2016-07-10 05:23] LABS: ADD SCAN DIFF NO
[2016-07-10 05:29] LABS: BASOPHILS % 0.2 % (0.0-2.0); EOSINOPHILS # 0.2 10^3/ul (0.0-0.5); EOSINOPHILS % 2.6 % (0.0-7.0); HEMATOCRIT 32.4 % (42.0-52.0); LYMPHOCYTES # 1.5 10^3/ul (0.8-2.9); LYMPHOCYTES % 16.8 % (15.0-51.0); MEAN CORPUSCULAR HEMOGLOBIN 29.7 pg (29.0-33.0); MEAN CORPUSCULAR VOLUME 87.6 fl (82.0-101.0); MEAN PLATELET VOLUME 9.7 fl (7.4-10.4); MONOCYTE # 0.7 10^3/ul (0.3-0.9); MONOCYTES % 7.8 % (0.0-11.0); NEUTROPHIL # 6.4 10^3/ul (1.6-7.5); NEUTROPHILS % 71.6 % (39.0-77.0); PLATELET COUNT 296 10^3/UL (140-415); RED CELL DISTRIBUTION WIDTH 12.6 % (11.5-14.5)
[2016-07-10] MEDS: LEVOTHYROXINE 200 MCG VIAL IV SCH (05:49)
[2016-07-10] MEDS: PANTOPRAZOLE 40 MG INJ IV SCH (05:49)
[2016-07-10 06:07] LABS: ALBUMIN 3.2 g/dl (3.3-4.9)
[2016-07-10 06:10] LABS: ALBUMIN/GLOBULIN RATIO 0.96; BILIRUBIN,INDIRECT 1.3 mg/dl (0-1.1); BILIRUBIN,TOTAL 1.3 mg/dl (0.2-1.3); CREATININE 0.52 mg/dl (0.61-1.24); TOTAL PROTEIN 6.5 g/dl (6.1-8.1)
[2016-07-10] MEDS: metroNIDAZOLE 500 MG/NS (PMX) 100 ML IVPB SCH ×3 (07:59→23:03)
[2016-07-10 08:11] VITALS: BP 133/84; RESP 16
--- NOTE | 2016-07-10 11:22 | PN ---
Date/Time of Note Date/Time of Note DATE: 07/10/16 TIME: 11:15 Assessment/Plan VTE Prophylaxis VTE Prophylaxis Intervention: SCD's Lines/Catheters IV [facility] (from [facility]): Peripheral IV Urinary Cath still in place: No Assessment/Plan Assessment/Plan [facility] 1. 55-year-old man who is day 4 s/p laparoscopic reversal of previous colostomy. Persistent hypokalemia (3.0 today). * Continued NPO for all orals, including medications. * Will discontinue lactated Ringers and start D5-1/2NS + 20 K at 100cc/hr. 2. Hypertension * Started on hydralazine PRN for SBP > 150 3. Gastroesophageal reflux disease * Protonix IV 40mg daily 4. Hyperlipidemia * Hold statin for now. 5. Hypothyroidism * Synthroid switched to IV 6. Hypokalemia at 3.0 again today. * IV replacement this morning. 7. Prophylaxis: SCDs for DVT prophylaxis, Protonix for GI prophylaxis 8. Disposition: Per general surgery patient to still remain NPO as he still has had no flatus so far * Encourage ambulation * Up to chair * Incentive spirometer use * Full-Code Robin Scott MD PhD [phone] Subjective 24 Hr Interval Summary Free Text/Dictation No visitors this morning. Sitting up in a chair. Feeling diffusely itchy. Feels like he has to stool, but still no flatus from below. No nausea and really no appetite. Very mild headache. Good urine output with no dysuria or urethritis symptoms. Exam/Review of Systems Vital Signs Vitals Vital Signs Date Time Temp Pulse Resp B/P Pulse Ox O2 Delivery O2 Flow Rate FiO2 07/10/16 08:11 97.8 74 16 133/84 100 07/09/16 06:08 Nasal Cannula 07/08/16 16:58 2.0 Intake and Output 07/09/16 07/09/16 07/10/16 15:00 23:00 07:00 Intake Total 100 ml 1100 ml Output Total 855 ml 805 ml Balance -755 ml 295 ml Exam Constitutional: Alert, oriented, well developed, up in a chair. Respiratory: Dull at left base, but good air movement overall Cardiovascular: Symmetric pulses, regular rhythm, normal rate. No murmur. Gastrointestinal: Mild bowel sounds, soft, diffuse tenderness, dry midline bandage in place. Musculoskeletal: Normal extremities to inspection with no edema. Neurological: Friendly affect, CHECK INSPECTOR II-XII intact, normal mental status and speech, moving all extremities. Skin: No rash. Results Result Diagram: 07/10/16 0455 07/10/16 0455 Results 24 hrs Laboratory Tests Test 07/10/16 04:55 White Blood Count 9.0 Red Blood Count 3.70 L Hemoglobin 11.0 L Hematocrit 32.4 L Mean Corpuscular Volume 87.6 Mean Corpuscular Hemoglobin 29.7 Mean Corpuscular Hemoglobin Concent 34.0 Red Cell Distribution Width 12.6 Platelet Count 296 Mean Platelet Volume 9.7 Neutrophils % 71.6 Lymphocytes % 16.8 Monocytes % 7.8 Eosinophils % 2.6 Basophils % 0.2 Nucleated Red Blood Cells % 0.0 Neutrophils # 6.4 Lymphocytes # 1.5 Monocytes # 0.7 Eosinophils # 0.2 Basophils # 0.0 Nucleated Red Blood Cells # 0.0 Sodium Level 140 Potassium Level 3.0 L Chloride Level 99 Carbon Dioxide Level 26 Anion Gap 18 H Blood Urea Nitrogen 10 Creatinine 0.52 L Glucose Level 93 Calcium Level 8.0 L Total Bilirubin 1.3 Direct Bilirubin 0.00 Indirect Bilirubin 1.3 H Aspartate Amino Transf (AST/SGOT) 25 Alanine Aminotransferase (ALT/SGPT) 25 Alkaline Phosphatase 67 Total Protein 6.5 Albumin 3.2 L Globulin 3.30 H Albumin/Globulin Ratio 0.96 Medications Medications Current Medications Lactated Ringer's (Lr) 1,000 ml @ 100 mls/hr Q10H IV Last administered on 18:56; Admin Dose 100 MLS/HR; Start 07/06/16 at 19:21 Naloxone HCl (Narcan) 0.2 mg PRN PRN IV DECREASED REPIRATORY RATE; Start at 20:00 Morphine Sulfate (morphine) Q4PCA IV Last administered on 07/09/16 20:43; Admin Dose 30 MG; Start 07/06/16 at 20:00 Oxycodone/ Acetaminophen (Percocet (5/ 325)) 1 tab Q4H PRN PO PAIN LEVEL 1-5; Start 07/06/16 at 20:00 Oxycodone/ Acetaminophen (Percocet (5/ 325)) 2 tab Q4H PRN PO PAIN LEVEL 6-10; Start 07/06/16 at 20:00 Ondansetron HCl (Zofran Inj) 4 mg Q6H PRN IV NAUSEA AND/OR VOMITING; Start 07/06 at 20:00 Diphenhydramine HCl (Benadryl) 25 mg Q6H PRN IV ITCHING Last administered on 06:18; Admin Dose 25 MG; Start 07/06/16 at 20:00 Miscellaneous Information 1. Discontinue PLASTER MACHINE TENDER... PLASTER MACHINE TENDER IV ; Start 07/06/16 at 20:00 Metronidazole 100 ml @ 100 mls/hr Q8H IVPB Last administered on 07/10/16 07:59 ; Admin Dose 100 MLS/HR; Start 07/06/16 at 23:30; Stop 07/11/16 at 23:29 Ampicillin Sodium/ Sulbactam Sodium (Unasyn 3gm/NS (Pmx)) 100 ml @ 200 mls/hr Q6 IVPB Last administered on 07/10/16 05:48; Admin Dose 200 MLS/HR; Start at 06:30; Stop 07/11/16 at 06:29 Pantoprazole (Protonix Iv) 40 mg DAILY@06 IV Last administered on 07/10/16 05: 49; Admin Dose 40 MG; Start 07/08/16 at 06:00 Hydralazine HCl (Apresoline) 10 mg Q6H PRN IV if SBP greater than 150; Start at 20:30 Morphine Sulfate (morphine) 1 mg Q3H PRN IV for mild pain; Start 07/08/16 at 20: 30; Status Future Hold Morphine Sulfate (morphine) 2 mg Q3H PRN IV for moderate to severe pain; Start 07/08/16 at 20:30; Status Future Hold Levothyroxine Sodium (Synthroid Iv) 37.5 mcg DAILY@06 IV Last administered on 05:49; Admin Dose 37.5 MCG; Start 07/09/16 at 06:00 ALEA SCOTT M.D. Jul 10, 2016 11:22
[2016-07-10] MEDS: D5W-0.45 NACL + KCL 20 MEQ 1,000 ML IV SCH ×2 (12:02→20:30)
--- NOTE | 2016-07-10 15:19 | PN ---
DATE: 07/10/2016 Status post takedown of the colostomy and closure of the colostomy and partial colon resection. SUBJECTIVE: No complaint. No nausea, no vomiting, no bowel movement, no passing gas. Has been out of bed in chair and is doing a little bit of walking around. OBJECTIVE: Alert, awake, oriented, sitting in a chair. VITAL SIGNS: Temperature 97.8, heart rate 74, respirations 16, blood pressure 133/84, saturation 10 0% on room air. LABORATORY DATA: Today, WBC 9000, hemoglobin 11.4. Chemistry: Potassium is 3 . Sodium is n ormal. BUN is 10, creatinine 0.52. Total bilirubin 1.3, direct bilirubin 0.0, Albumin 3.2. ASSESSMENT AND PLAN: This is a 55-year-old who underwent closure and takedown of sigmoid colostomy. Postop day #4. Patient is doing fine, though no passing gas. No bowel movement, no nausea, no vo miting. Bowel sounds 2+/4+. PLAN: 1. Continue current care. Keep the patient n.p.o. 2. Ambulate as much as possible. 3. Will follow. Dictated By: SIRISHA SALEH MD PS/NTS Conf#: [id number] DID#: [id number] CC: KAVITHA ALEGRE MD;*EndCC*
[2016-07-10 19:16] VITALS: BP 160/91; RESP 19
[2016-07-10] MEDS ORDERED: morphine 1 MG/ML 30 ML (PCA) IV SCH (19:30)
[2016-07-11] MEDS: AMPICILLIN/SULB 3 GM/NS (PMX) 100 ML IVPB SCH ×2 (00:23→06:17)
[2016-07-11] MEDS: D5W-0.45 NACL + KCL 20 MEQ 1,000 ML IV SCH ×2 (03:27→15:50)
[2016-07-11 04:58] LABS: ADD SCAN DIFF NO
[2016-07-11 05:11] LABS: BASOPHILS % 0.5 % (0.0-2.0); EOSINOPHILS # 0.3 10^3/ul (0.0-0.5); EOSINOPHILS % 4.2 % (0.0-7.0); HEMATOCRIT 31.3 % (42.0-52.0); HEMOGLOBIN 11.4 g/dl (14.0-18.0); LYMPHOCYTES # 1.7 10^3/ul (0.8-2.9); LYMPHOCYTES % 22.3 % (15.0-51.0); MEAN CORPUSCULAR HEMOGLOBIN 30.7 pg (29.0-33.0); MEAN CORPUSCULAR HGB CONC 36.4 g/dl (32.0-37.0); MEAN CORPUSCULAR VOLUME 84.4 fl (82.0-101.0); MEAN PLATELET VOLUME 9.5 fl (7.4-10.4); MONOCYTE # 0.6 10^3/ul (0.3-0.9); MONOCYTES % 7.2 % (0.0-11.0); NEUTROPHIL # 4.9 10^3/ul (1.6-7.5); NEUTROPHILS % 64.5 % (39.0-77.0); PLATELET COUNT 375 10^3/UL (140-415); RED BLOOD COUNT 3.71 10^6/ul (4.70-6.10); RED CELL DISTRIBUTION WIDTH 12.1 % (11.5-14.5); WHITE BLOOD COUNT 7.6 10^3/ul (4.8-10.8)
[2016-07-11] MEDS: PANTOPRAZOLE 40 MG INJ IV SCH (06:16)
[2016-07-11] MEDS: LEVOTHYROXINE 200 MCG VIAL IV SCH (06:17)
[2016-07-11] MEDS: metroNIDAZOLE 500 MG/NS (PMX) 100 ML IVPB SCH ×2 (07:18→14:50)
[2016-07-11 08:17] VITALS: BP 152/93; RESP 18
--- NOTE | 2016-07-11 10:18 | PN ---
Date/Time of Note Date/Time of Note DATE: 07/11/16 TIME: 10:17 Assessment/Plan VTE Prophylaxis VTE Prophylaxis Intervention: SCD's Lines/Catheters IV Catheter Type (from Nrsg): Peripheral IV Urinary Cath still in place: No Assessment/Plan Chief Complaint/Hosp Course s/p exp lap reversal of colostomy with severe adhesions and difficult operation Problems: Assessment/Plan had some flatus, start clears Subjective 24 Hr Interval Summary Free Text/Dictation passed some flatus Exam/Review of Systems Vital Signs Vitals Vital Signs Date Time Temp Pulse Resp B/P Pulse Ox O2 Delivery O2 Flow Rate FiO2 07/11/16 08:17 97.2 68 18 152/93 96 07/09/16 06:08 Nasal Cannula 07/08/16 16:58 2.0 Intake and Output 07/10/16 07/10/16 07/11/16 15:00 23:00 07:00 Intake Total 100 ml 1250 ml Output Total 2 ml 1302 ml Balance 100 ml -2 ml -52 ml Exam clean dry intact, open old colostomy site Results Result Diagram: 07/11/16 0420 07/10/16 0455 Results 24 hrs Laboratory Tests Test 07/11/16 04:20 White Blood Count 7.6 Red Blood Count 3.71 L Hemoglobin 11.4 L Hematocrit 31.3 L Mean Corpuscular Volume 84.4 Mean Corpuscular Hemoglobin 30.7 Mean Corpuscular Hemoglobin Concent 36.4 Red Cell Distribution Width 12.1 Platelet Count 375 # Mean Platelet Volume 9.5 Neutrophils % 64.5 Lymphocytes % 22.3 Monocytes % 7.2 Eosinophils % 4.2 Basophils % 0.5 Nucleated Red Blood Cells % 0.0 Neutrophils # 4.9 Lymphocytes # 1.7 Monocytes # 0.6 Eosinophils # 0.3 Basophils # 0.0 Nucleated Red Blood Cells # 0.0 Medications Medications Current Medications Naloxone HCl (Narcan) 0.2 mg PRN PRN IV DECREASED REPIRATORY RATE; Start at 20:00 Oxycodone/ Acetaminophen (Percocet (5/ 325)) 1 tab Q4H PRN PO PAIN LEVEL 1-5; Start 07/06/16 at 20:00 Oxycodone/ Acetaminophen (Percocet (5/ 325)) 2 tab Q4H PRN PO PAIN LEVEL 6-10; Start 07/06/16 at 20:00 Ondansetron HCl (Zofran Inj) 4 mg Q6H PRN IV NAUSEA AND/OR VOMITING; Start 07/06 at 20:00 Diphenhydramine HCl 25 mg 25 mg Q6H PRN IV ITCHING Last administered on 06:18; Admin Dose 25 MG; Start 07/06/16 at 20:00 Metronidazole (Flagyl 500 Mg (Pmx)) 100 ml @ 100 mls/hr Q8H IVPB Last administered on 07/11/16 07:18; Admin Dose 100 MLS/HR; Start 07/06/16 at 23:30; Stop 07/11/16 at 23:29 Pantoprazole (Protonix Iv) 40 mg DAILY@06 IV Last administered on 07/11/16 06: 16; Admin Dose 40 MG; Start 07/08/16 at 06:00 Hydralazine HCl (Apresoline) 10 mg Q6H PRN IV if SBP greater than 150; Start at 20:30 Morphine Sulfate (morphine) 1 mg Q3H PRN IV for mild pain; Start 07/08/16 at 20: 30; Status Future Hold Morphine Sulfate (morphine) 2 mg Q3H PRN IV for moderate to severe pain; Start 07/08/16 at 20:30; Status Future Hold Levothyroxine Sodium 37.5 mcg 37.5 mcg DAILY@06 IV Last administered on 06:17; Admin Dose 37.5 MCG; Start 07/09/16 at 06:00 Potassium Chloride/Dextrose/ Sod Cl (D5-1/2ns + KCl 20 Meq) 1,000 ml @ 100 mls/ hr Q10H IV Last administered on 07/11/16 03:27; Admin Dose 100 MLS/HR; Start 07/10/16 at 11:30 Morphine Sulfate (morphine) 0 MG/HR CONTINUOUS RATE 1... Q4PCA IV Last administered on 07/11/16 06:19; Admin Dose 30 MG; Start 07/10/16 at 19:30 Lorenzo ALEGRE Jul 11, 2016 10:18
--- NOTE | 2016-07-11 12:27 | PN ---
Date/Time of Note Date/Time of Note DATE: 07/11/16 TIME: 12:18 Assessment/Plan VTE Prophylaxis VTE Prophylaxis Intervention: SCD's Lines/Catheters IV Catheter Type (from Nrs): Peripheral IV Urinary Cath still in place: No Assessment/Plan Assessment/Plan 55-year-old male: 1. Status post reversal of colostomy, POD# 5, some flatus yesterday Starting clears today and SENIOR ADMINISTRATOR SUPPORT d/c'd Ambulation Further recommendations per surgeon Dr Adkins. 2. Hypertension: Resuming Atenolol now that patient on clears. 3. Gastroesophageal reflux disease: Continue on pump inhibitors 4. Hyperlipidemia: Resuming Statins. 5. Hypothyroidism: on IV Synthroid for now 6. Hypokalemia: repeat Labs today and replete as needed Prophylaxis: SCDs for DVT prophylaxis, Protonix for GI prophylaxis Disposition: Per general surgery today OK to start clears Encourage Ambulation. Subjective 24 Hr Interval Summary Free Text/Dictation Patient doing Ok Passed gas as of yesterday so clear liquid diet started today D/c SENIOR ADMINISTRATOR SUPPORT today Needs to ambulate Exam/Review of Systems Vital Signs Vitals Vital Signs Date Time Temp Pulse Resp B/P Pulse Ox O2 Delivery O2 Flow Rate FiO2 07/11/16 10:00 17 07/11/16 08:17 97.2 68 152/93 96 07/09/16 06:08 Nasal Cannula 07/08/16 16:58 2.0 Intake and Output 07/10/16 07/10/16 07/11/16 15:00 23:00 07:00 Intake Total 100 ml 1250 ml Output Total 2 ml 1302 ml Balance 100 ml -2 ml -52 ml Exam Constitutional: alert, oriented, well developed Respiratory: clear to auscultation, congested cough Gastrointestinal: non-tender, other (ZAINAB drain ), soft Musculoskeletal: nl extremities to inspection Extremities: normal pulses Neurological: DOUGH MIXER II-XII intact, nl mental status, nl speech, nl strength Results Result Diagram: 07/11/16 0420 07/10/16 0455 Results 24 hrs Laboratory Tests Test 07/11/16 04:20 White Blood Count 7.6 Red Blood Count 3.71 L Hemoglobin 11.4 L Hematocrit 31.3 L Mean Corpuscular Volume 84.4 Mean Corpuscular Hemoglobin 30.7 Mean Corpuscular Hemoglobin Concent 36.4 Red Cell Distribution Width 12.1 Platelet Count 375 # Mean Platelet Volume 9.5 Neutrophils % 64.5 Lymphocytes % 22.3 Monocytes % 7.2 Eosinophils % 4.2 Basophils % 0.5 Nucleated Red Blood Cells % 0.0 Neutrophils # 4.9 Lymphocytes # 1.7 Monocytes # 0.6 Eosinophils # 0.3 Basophils # 0.0 Nucleated Red Blood Cells # 0.0 Medications Medications Current Medications Naloxone HCl (Narcan) 0.2 mg PRN PRN IV DECREASED REPIRATORY RATE; Start at 20:00 Oxycodone/ Acetaminophen (Percocet (5/ 325)) 1 tab Q4H PRN PO PAIN LEVEL 1-5; Start 07/06/16 at 20:00 Oxycodone/ Acetaminophen (Percocet (5/ 325)) 2 tab Q4H PRN PO PAIN LEVEL 6-10; Start 07/06/16 at 20:00 Ondansetron HCl (Zofran Inj) 4 mg Q6H PRN IV NAUSEA AND/OR VOMITING; Start 07/06 at 20:00 Diphenhydramine HCl 25 mg 25 mg Q6H PRN IV ITCHING Last administered on 06:18; Admin Dose 25 MG; Start 07/06/16 at 20:00 Metronidazole (Flagyl 500 Mg (Pmx)) 100 ml @ 100 mls/hr Q8H IVPB Last administered on 07/11/16 07:18; Admin Dose 100 MLS/HR; Start 07/06/16 at 23:30; Stop 07/11/16 at 23:29 Pantoprazole (Protonix Iv) 40 mg DAILY@06 IV Last administered on 07/11/16 06: 16; Admin Dose 40 MG; Start 07/08/16 at 06:00 Hydralazine HCl (Apresoline) 10 mg Q6H PRN IV if SBP greater than 150; Start at 20:30 Morphine Sulfate (morphine) 1 mg Q3H PRN IV for mild pain; Start 07/08/16 at 20: 30; Status Future hold Morphine Sulfate (morphine) 2 mg Q3H PRN IV for moderate to severe pain; Start 07/08/16 at 20:30; Status Future hold Levothyroxine Sodium 37.5 mcg 37.5 mcg DAILY@06 IV Last administered on 06:17; Admin Dose 37.5 MCG; Start 07/09/16 at 06:00 Potassium Chloride/Dextrose/ Sod Cl (D5-1/2ns + KCl 20 Meq) 1,000 ml @ 100 mls/ hr Q10H IV Last administered on 07/11/16 03:27; Admin Dose 100 MLS/HR; Start 07/10/16 at 11:30 MARY CHAVEZ Jul 11, 2016 12:27
[2016-07-11 13:05] LABS: CREATININE 0.5 mg/dl (0.61-1.24); PHOSPHORUS 2.2 mg/dl (2.5-4.9)
[2016-07-11 13:06] LABS: CALCIUM 8.4 mg/dl (8.4-10.2); MAGNESIUM 1.7 mg/dl (1.7-2.5)
[2016-07-11] MEDS ORDERED: POTASSIUM CHLORIDE (SR) 20 MEQ TAB PO STA (14:41)
[2016-07-11] MEDS ORDERED: MAGNESIUM SULFATE 2 GM/50 ML 50 ML IVPB ONE (15:30)
[2016-07-11] MEDS ORDERED: POTASSIUM CHLORIDE (SR) 20 MEQ TAB PO SCH (17:00)
[2016-07-11 19:14] VITALS: BP 137/68; RESP 16
[2016-07-12] MEDS: D5W-0.45 NACL + KCL 20 MEQ 1,000 ML IV SCH ×2 (03:13→13:53)
[2016-07-12 05:05] LABS: ADD SCAN DIFF NO
[2016-07-12 05:12] LABS: BASOPHIL # 0.1 10^3/ul (0.0-0.1); BASOPHILS % 0.7 % (0.0-2.0); EOSINOPHILS # 0.4 10^3/ul (0.0-0.5); EOSINOPHILS % 4.4 % (0.0-7.0); HEMATOCRIT 36.9 % (42.0-52.0); LYMPHOCYTES # 2.3 10^3/ul (0.8-2.9); LYMPHOCYTES % 27.2 % (15.0-51.0); MEAN CORPUSCULAR HGB CONC 35.2 g/dl (32.0-37.0); MEAN PLATELET VOLUME 9.2 fl (7.4-10.4); MONOCYTE # 0.7 10^3/ul (0.3-0.9); MONOCYTES % 7.8 % (0.0-11.0); NEUTROPHILS % 57.9 % (39.0-77.0); PLATELET COUNT 437 10^3/UL (140-415); RED BLOOD COUNT 4.34 10^6/ul (4.70-6.10); RED CELL DISTRIBUTION WIDTH 12.2 % (11.5-14.5); WHITE BLOOD COUNT 8.6 10^3/ul (4.8-10.8)
[2016-07-12 05:35] LABS: PHOSPHORUS 2.3 mg/dl (2.5-4.9)
[2016-07-12 05:36] LABS: MAGNESIUM 1.9 mg/dl (1.7-2.5)
[2016-07-12 05:52] LABS: POTASSIUM 3.6 mmol/L (3.5-5.1)
[2016-07-12 05:55] LABS: CREATININE 0.52 mg/dl (0.61-1.24)
[2016-07-12] MEDS: LEVOTHYROXINE 75 MCG TAB PO SCH (05:57)
[2016-07-12] MEDS: PANTOPRAZOLE (EC) 40 MG TAB PO SCH (05:57)
[2016-07-12] MEDS: morphine 2 MG INJ IV PRN (07:47)
[2016-07-12 08:16] VITALS: BP 136/93; PULSE 72; RESP 18
[2016-07-12 08:21] VITALS: BP 168/99; RESP 18
[2016-07-12] MEDS ORDERED: POTASSIUM CHLORIDE (SR) 20 MEQ TAB PO STA (09:03)
[2016-07-12] MEDS: ATENOLOL 25 MG TAB PO SCH (09:54)
[2016-07-12] MEDS ORDERED: POTASSIUM CHLORIDE (SR) 20 MEQ TAB PO SCH (09:58)
[2016-07-12] MEDS ORDERED: MAGNESIUM SULFATE 1 GM/D5W 100 ML IVPB ONE (10:30)
--- NOTE | 2016-07-12 11:31 | PN ---
Date/Time of Note Date/Time of Note DATE: 07/12/16 TIME: 11:23 Assessment/Plan VTE Prophylaxis VTE Prophylaxis Intervention: SCD's Lines/Catheters IV Catheter Type (from Nrs): Peripheral IV Urinary Cath still in place: No Assessment/Plan Assessment/Plan 55-year-old male: 1. Status post reversal of colostomy, POD# 6, BM yesterday and ambulating On clears, hopefully to advance diet today and ZAINAB drain to be removed soon by surgery for d/c planing Continue ambulation Further recommendations per surgeon Dr Adkins. 2. Hypertension: Resuming Atenolol today. 3. Gastroesophageal reflux disease: Continue on pump inhibitors 4. Hyperlipidemia: Resuming Statins. 5. Hypothyroidism: back on po Synthroid. 6. Hypokalemia: repleting mag and K as needed Prophylaxis: SCDs for DVT prophylaxis, Protonix for GI prophylaxis Disposition: Follow up general surgery recommendations today, hopefully d/c planning soon. Encourage Ambulation. Subjective 24 Hr Interval Summary Free Text/Dictation Patient doing well today No complaints, BM yesterday and tolerating clears and ambulating. Exam/Review of Systems Vital Signs Vitals Vital Signs Date Time Temp Pulse Resp B/P Pulse Ox O2 Delivery O2 Flow Rate FiO2 07/12/16 08:16 72 18 136/93 07/11/16 19:14 98.8 95 07/09/16 06:08 Nasal Cannula 07/08/16 16:58 2.0 Intake and Output 07/11/16 07/11/16 07/12/16 15:00 23:00 07:00 Intake Total 1900 ml 1800 ml Output Total 1550 ml 1505 ml Balance 350 ml 295 ml Exam Constitutional: alert, oriented, well developed Respiratory: clear to auscultation, normal air movement Cardiovascular: nl pulses, regular rate and rhythm Gastrointestinal: non-tender, other (incision clean and ZAINAB drain in place), soft Musculoskeletal: nl extremities to inspection, nl gait and stance Extremities: normal pulses, other (no edema, clubbing or cyanosis ) Results Result Diagram: 07/12/16 0439 07/12/16 0439 Results 24 hrs Laboratory Tests Test 07/11/16 12:15 07/12/16 04:39 Sodium Level 140 142 Potassium Level 3.0 L 3.6 Chloride Level 98 103 Carbon Dioxide Level 30 25 Anion Gap 15 18 H Blood Urea Nitrogen 5 L 5 L Creatinine 0.50 L 0.52 L Glucose Level 151 147 Calcium Level 8.4 9.0 Phosphorus Level 2.2 L 2.3 L Magnesium Level 1.7 1.9 White Blood Count 8.6 Red Blood Count 4.34 L Hemoglobin 13.0 L Hematocrit 36.9 L Mean Corpuscular Volume 85.0 Mean Corpuscular Hemoglobin 30.0 Mean Corpuscular Hemoglobin Concent 35.2 Red Cell Distribution Width 12.2 Platelet Count 437 H Mean Platelet Volume 9.2 Neutrophils % 57.9 Lymphocytes % 27.2 Monocytes % 7.8 Eosinophils % 4.4 Basophils % 0.7 Nucleated Red Blood Cells % 0.0 Neutrophils # 5.0 Lymphocytes # 2.3 Monocytes # 0.7 Eosinophils # 0.4 Basophils # 0.1 Nucleated Red Blood Cells # 0.0 Medications Medications Current Medications Naloxone HCl (Narcan) 0.2 mg PRN PRN IV DECREASED REPIRATORY RATE; Start at 20:00 Oxycodone/ Acetaminophen (Percocet (5/ 325)) 1 tab Q4H PRN PO PAIN LEVEL 1-5; Start 07/06/16 at 20:00 Oxycodone/ Acetaminophen (Percocet (5/ 325)) 2 tab Q4H PRN PO PAIN LEVEL 6-10; Start 07/06/16 at 20:00 Ondansetron HCl (Zofran Inj) 4 mg Q6H PRN IV NAUSEA AND/OR VOMITING; Start 07/06 at 20:00 Diphenhydramine HCl (Benadryl) 25 mg Q6H PRN IV ITCHING Last administered on 06:18; Admin Dose 25 MG; Start 07/06/16 at 20:00 Hydralazine HCl (Apresoline) 10 mg Q6H PRN IV if SBP greater than 150; Start at 20:30 Morphine Sulfate (morphine) 1 mg Q3H PRN IV for mild pain Last administered on 07/12/16 07:47; Admin Dose 1 MG; Start 07/08/16 at 20:30; Status Future hold Morphine Sulfate 2 mg 2 mg Q3H PRN IV for moderate to severe pain; Start at 20:30; Status Future hold Potassium Chloride/Dextrose/ Sod Cl (D5-1/2ns + KCl 20 Meq) 1,000 ml @ 100 mls/ hr Q10H IV Last administered on 07/12/16 03:13; Admin Dose 100 MLS/HR; Start 07/10/16 at 11:30 Pantoprazole (Protonix Tab) 40 mg DAILY@06 PO Last administered on 07/12/16 05 :57; Admin Dose 40 MG; Start 07/12/16 at 06:00 Levothyroxine Sodium 75 mcg 75 mcg DAILY@06 PO Last administered on 07/12/16 05:57; Admin Dose 75 MCG; Start 07/12/16 at 06:00 Magnesium Sulfate/ Dextrose (Magnesium Sulfate 1 Gm/D5W) 100 ml @ 100 mls/hr ONCE ONCE IVPB ; Start 07/12/16 at 10:30; Stop 07/12/16 at 11:29 Atenolol (Tenormin) 25 mg DAILY PO Last administered on 07/12/16 09:54; Admin Dose 25 MG; Start 07/12/16 at 10:00 Potassium Chloride (Klor-Con 20) 20 meq ONCE PO ; Start 07/12/16 at 09:58; Stop 07/12/16 at 12:00 MARY CHAVEZ Jul 12, 2016 11:31
--- NOTE | 2016-07-12 13:02 | PN ---
Date/Time of Note Date/Time of Note DATE: 07/12/16 TIME: 13:01 Assessment/Plan VTE Prophylaxis VTE Prophylaxis Intervention: SCD's Lines/Catheters IV [facility] Type (from [facility] Peripheral IV Urinary Cath still in place: No Assessment/Plan Chief Complaint/Hosp Course s/p exp lap reversal of colostomy with severe adhesions and difficult operation Problems: Assessment/Plan start full liquids continue care Subjective 24 Hr Interval Summary Free Text/Dictation had some bm per patient and passing flatus Exam/Review of Systems Vital Signs Vitals Vital Signs Date Time Temp Pulse Resp B/P Pulse Ox O2 Delivery O2 Flow Rate FiO2 07/12/16 08:16 72 18 136/93 07/11/16 19:14 98.8 95 07/09/16 06:08 Nasal Cannula 07/08/16 16:58 2.0 Intake and Output 07/11/16 07/11/16 07/12/16 15:00 23:00 07:00 Intake Total 1900 ml 1800 ml Output Total 1550 ml 1505 ml Balance 350 ml 295 ml Exam c/d/i ostomy site clean base Results Result Diagram: 07/12/16 0439 07/12/16 0439 Results 24 hrs Laboratory Tests Test 07/12/16 04:39 White Blood Count 8.6 Red Blood Count 4.34 L Hemoglobin 13.0 L Hematocrit 36.9 L Mean Corpuscular Volume 85.0 Mean Corpuscular Hemoglobin 30.0 Mean Corpuscular Hemoglobin Concent 35.2 Red Cell Distribution Width 12.2 Platelet Count 437 H Mean Platelet Volume 9.2 Neutrophils % 57.9 Lymphocytes % 27.2 Monocytes % 7.8 Eosinophils % 4.4 Basophils % 0.7 Nucleated Red Blood Cells % 0.0 Neutrophils # 5.0 Lymphocytes # 2.3 Monocytes # 0.7 Eosinophils # 0.4 Basophils # 0.1 Nucleated Red Blood Cells # 0.0 Sodium Level 142 Potassium Level 3.6 Chloride Level 103 Carbon Dioxide Level 25 Anion Gap 18 H Blood Urea Nitrogen 5 L Creatinine 0.52 L Glucose Level 147 Calcium Level 9.0 Phosphorus Level 2.3 L Magnesium Level 1.9 Medications Medications Current Medications Naloxone HCl (Narcan) 0.2 mg PRN PRN IV DECREASED REPIRATORY RATE; Start at 20:00 Oxycodone/ Acetaminophen (Percocet (5/ 325)) 1 tab Q4H PRN PO PAIN LEVEL 1-5; Start 07/06/16 at 20:00 Oxycodone/ Acetaminophen (Percocet (5/ 325)) 2 tab Q4H PRN PO PAIN LEVEL 6-10; Start 07/06/16 at 20:00 Ondansetron HCl (Zofran Inj) 4 mg Q6H PRN IV NAUSEA AND/OR VOMITING; Start 07/06 at 20:00 Diphenhydramine HCl (Benadryl) 25 mg Q6H PRN IV ITCHING Last administered on 06:18; Admin Dose 25 MG; Start 07/06/16 at 20:00 Hydralazine HCl (Apresoline) 10 mg Q6H PRN IV if SBP greater than 150 Last administered on 07/12/16 12:54; Admin Dose 10 MG; Start 07/08/16 at 20:30 Morphine Sulfate (morphine) 1 mg Q3H PRN IV for mild pain Last administered on 07/12/16 07:47; Admin Dose 1 MG; Start 07/08/16 at 20:30; Status Future hold Morphine Sulfate 2 mg 2 mg Q3H PRN IV for moderate to severe pain; Start at 20:30; Status Future hold Potassium Chloride/Dextrose/ Sod Cl (D5-1/2ns + KCl 20 Meq) 1,000 ml @ 100 mls/ hr Q10H IV Last administered on 07/12/16 03:13; Admin Dose 100 MLS/HR; Start 07/10/16 at 11:30 Pantoprazole (Protonix Tab) 40 mg DAILY@06 PO Last administered on 07/12/16 05 :57; Admin Dose 40 MG; Start 07/12/16 at 06:00 Levothyroxine Sodium (Synthroid) 75 mcg DAILY@06 PO Last administered on 05:57; Admin Dose 75 MCG; Start 07/12/16 at 06:00 Atenolol (Tenormin) 25 mg DAILY PO Last administered on 07/12/16 09:54; Admin Dose 25 MG; Start 07/12/16 at 10:00 Lorenzo ALEGRE Jul 12, 2016 13:02
[2016-07-12 14:23] VITALS: BP 138/87; PULSE 74; RESP 18
[2016-07-12 20:07] VITALS: BP 139/90; RESP 20
[2016-07-13] MEDS: ONDANSETRON 4 MG INJ IV PRN ×2 (00:19→10:54)
[2016-07-13 04:58] LABS: ADD SCAN DIFF NO
[2016-07-13 05:02] LABS: BASOPHIL # 0.1 10^3/ul (0.0-0.1); BASOPHILS % 1.1 % (0.0-2.0); EOSINOPHILS # 0.5 10^3/ul (0.0-0.5); EOSINOPHILS % 3.7 % (0.0-7.0); HEMATOCRIT 41.6 % (42.0-52.0); HEMOGLOBIN 14.2 g/dl (14.0-18.0); LYMPHOCYTES # 3.1 10^3/ul (0.8-2.9); LYMPHOCYTES % 24.4 % (15.0-51.0); MEAN CORPUSCULAR HEMOGLOBIN 29.5 pg (29.0-33.0); MEAN CORPUSCULAR HGB CONC 34.1 g/dl (32.0-37.0); MEAN CORPUSCULAR VOLUME 86.5 fl (82.0-101.0); MEAN PLATELET VOLUME 9.2 fl (7.4-10.4); MONOCYTE # 0.9 10^3/ul (0.3-0.9); NEUTROPHIL # 7.4 10^3/ul (1.6-7.5); NEUTROPHILS % 58.9 % (39.0-77.0); PLATELET COUNT 487 10^3/UL (140-415); RED BLOOD COUNT 4.81 10^6/ul (4.70-6.10); RED CELL DISTRIBUTION WIDTH 12.5 % (11.5-14.5); WHITE BLOOD COUNT 12.5 10^3/ul (4.8-10.8)
[2016-07-13 05:19] LABS: CALCIUM 9.4 mg/dl (8.4-10.2); CREATININE 0.63 mg/dl (0.61-1.24); POTASSIUM 4.3 mmol/L (3.5-5.1)
[2016-07-13 05:22] LABS: MAGNESIUM 2.1 mg/dl (1.7-2.5); PHOSPHORUS 3.3 mg/dl (2.5-4.9)
[2016-07-13] MEDS: LEVOTHYROXINE 75 MCG TAB PO SCH (06:00)
[2016-07-13] MEDS: PANTOPRAZOLE (EC) 40 MG TAB PO SCH (06:00)
[2016-07-13 07:47] VITALS: BP 136/86; RESP 16
--- NOTE | 2016-07-13 08:42 | PN ---
Date/Time of Note Date/Time of Note DATE: 07/13/16 TIME: 08:42 Assessment/Plan VTE Prophylaxis VTE Prophylaxis Intervention: SCD's Lines/Catheters IV Catheter Type (from Nrsg): Peripheral IV Urinary Cath still in place: No Assessment/Plan Chief Complaint/Hosp Course s/p exp lap reversal of colostomy with severe adhesions and difficult operation Problems: Assessment/Plan had vomiting episode will hold off on fluids Subjective 24 Hr Interval Summary Free Text/Dictation had emesis after taking in liquids Exam/Review of Systems Vital Signs Vitals Vital Signs Date Time Temp Pulse Resp B/P Pulse Ox O2 Delivery O2 Flow Rate FiO2 07/13/16 07:47 98.2 92 16 136/86 100 07/12/16 14:23 Room Air Intake and Output 07/12/16 07/12/16 07/13/16 15:00 23:00 07:00 Intake Total 900 ml 340 ml 800 ml Output Total 205 ml 1305 ml 600 ml Balance 695 ml -965 ml 200 ml Exam clean and intact Results Result Diagram: 07/13/16 0438 07/13/16 0438 Results 24 hrs Laboratory Tests Test 07/13/16 04:38 White Blood Count 12.5 #H Red Blood Count 4.81 Hemoglobin 14.2 Hematocrit 41.6 L Mean Corpuscular Volume 86.5 Mean Corpuscular Hemoglobin 29.5 Mean Corpuscular Hemoglobin Concent 34.1 Red Cell Distribution Width 12.5 Platelet Count 487 H Mean Platelet Volume 9.2 Neutrophils % 58.9 Lymphocytes % 24.4 Monocytes % 7.0 Eosinophils % 3.7 Basophils % 1.1 Nucleated Red Blood Cells % 0.0 Neutrophils # 7.4 Lymphocytes # 3.1 H Monocytes # 0.9 Eosinophils # 0.5 Basophils # 0.1 Nucleated Red Blood Cells # 0.0 Sodium Level 141 Potassium Level 4.3 Chloride Level 107 Carbon Dioxide Level 23 Anion Gap 15 Blood Urea Nitrogen 11 Creatinine 0.63 Glucose Level 143 Calcium Level 9.4 Phosphorus Level 3.3 Magnesium Level 2.1 Medications Medications Current Medications Naloxone HCl (Narcan) 0.2 mg PRN PRN IV DECREASED REPIRATORY RATE; Start at 20:00 Oxycodone/ Acetaminophen (Percocet (5/ 325)) 1 tab Q4H PRN PO PAIN LEVEL 1-5; Start 07/06/16 at 20:00 Oxycodone/ Acetaminophen (Percocet (5/ 325)) 2 tab Q4H PRN PO PAIN LEVEL 6-10; Start 07/06/16 at 20:00 Ondansetron HCl (Zofran Inj) 4 mg Q6H PRN IV NAUSEA AND/OR VOMITING Last administered on 07/13/16 00:19; Admin Dose 4 MG; Start 07/06/16 at 20:00 Diphenhydramine HCl (Benadryl) 25 mg Q6H PRN IV ITCHING Last administered on 06:18; Admin Dose 25 MG; Start 07/06/16 at 20:00 Hydralazine HCl (Apresoline) 10 mg Q6H PRN IV if SBP greater than 150 Last administered on 07/12/16 12:54; Admin Dose 10 MG; Start 07/08/16 at 20:30 Morphine Sulfate (morphine) 1 mg Q3H PRN IV for mild pain Last administered on 07/12/16 07:47; Admin Dose 1 MG; Start 07/08/16 at 20:30; Status Future hold Morphine Sulfate 2 mg 2 mg Q3H PRN IV for moderate to severe pain; Start at 20:30; Status Future hold Potassium Chloride/Dextrose/ Sod Cl (D5-1/2ns + KCl 20 Meq) 1,000 ml @ 50 mls/ hr Q20H IV Last administered on 07/12/16 13:53; Admin Dose 50 MLS/HR; Start at 11:30 Pantoprazole (Protonix Tab) 40 mg DAILY@06 PO Last administered on 07/12/16 05 :57; Admin Dose 40 MG; Start 07/12/16 at 06:00 Levothyroxine Sodium (Synthroid) 75 mcg DAILY@06 PO Last administered on 05:57; Admin Dose 75 MCG; Start 07/12/16 at 06:00 Atenolol (Tenormin) 25 mg DAILY PO Last administered on 07/12/16 09:54; Admin Dose 25 MG; Start 07/12/16 at 10:00 Lorenzo ALEGRE Jul 13, 2016 08:42
[2016-07-13] MEDS: ATENOLOL 25 MG TAB PO SCH (08:50)
[2016-07-13] MEDS: D5W-0.45 NACL + KCL 20 MEQ 1,000 ML IV SCH (09:43)
--- NOTE | 2016-07-13 11:44 | PN ---
Date/Time of Note Date/Time of Note DATE: 07/13/16 TIME: 11:29 Assessment/Plan VTE Prophylaxis VTE Prophylaxis Intervention: SCD's Lines/Catheters IV Catheter Type (from Nrs): Peripheral IV Urinary Cath still in place: No Assessment/Plan Assessment/Plan 55-year-old male: 1. Status post reversal of colostomy, POD#7, BM x 1 and ambulating but patient with 1 episode of vomiting Patient back to NPO except for meds KUB ordered this AM to eval for ? ileus and see if OK to try Reglan Continue ambulation Further recommendations per surgeon Dr Adkins. 2. Hypertension: Atenolol today. 3. Gastroesophageal reflux disease: PPI. 4. Hyperlipidemia: Resuming Statins. 5. Hypothyroidism: back on po Synthroid. 6. Hypokalemia: repleting mag and K as needed Prophylaxis: SCDs for DVT prophylaxis, Protonix for GI prophylaxis Disposition: Follow up general surgery recommendations. Hopefully bowel function back soon. NPO except for meds. KUB pending Encourage Ambulation. Subjective 24 Hr Interval Summary Free Text/Dictation Patient reports Nausea yesterday with clear liquids and vomited yesterday, now NPO except for meds and KUB pending Pain controlled Exam/Review of Systems Vital Signs Vitals Vital Signs Date Time Temp Pulse Resp B/P Pulse Ox O2 Delivery O2 Flow Rate FiO2 07/13/16 07:47 98.2 92 16 136/86 100 07/12/16 14:23 Room Air Intake and Output 07/12/16 07/12/16 07/13/16 15:00 23:00 07:00 Intake Total 900 ml 340 ml 800 ml Output Total 205 ml 1305 ml 600 ml Balance 695 ml -965 ml 200 ml Exam Constitutional: alert, oriented, well developed Respiratory: clear to auscultation, normal air movement Cardiovascular: nl pulses, regular rate and rhythm Gastrointestinal: soft, tender (mild incision pain ) Musculoskeletal: nl extremities to inspection Extremities: normal pulses, other (no edema, clubbing or cyanosis ) Neurological: TECHNICAL SPECIALIST CYTOGENETICS II-XII intact, nl mental status, nl speech, nl strength Results Result Diagram: 07/13/16 0438 07/13/16 0438 Results 24 hrs Laboratory Tests Test 07/13/16 04:38 White Blood Count 12.5 #H Red Blood Count 4.81 Hemoglobin 14.2 Hematocrit 41.6 L Mean Corpuscular Volume 86.5 Mean Corpuscular Hemoglobin 29.5 Mean Corpuscular Hemoglobin Concent 34.1 Red Cell Distribution Width 12.5 Platelet Count 487 H Mean Platelet Volume 9.2 Neutrophils % 58.9 Lymphocytes % 24.4 Monocytes % 7.0 Eosinophils % 3.7 Basophils % 1.1 Nucleated Red Blood Cells % 0.0 Neutrophils # 7.4 Lymphocytes # 3.1 H Monocytes # 0.9 Eosinophils # 0.5 Basophils # 0.1 Nucleated Red Blood Cells # 0.0 Sodium Level 141 Potassium Level 4.3 Chloride Level 107 Carbon Dioxide Level 23 Anion Gap 15 Blood Urea Nitrogen 11 Creatinine 0.63 Glucose Level 143 Calcium Level 9.4 Phosphorus Level 3.3 Magnesium Level 2.1 Medications Medications Current Medications Naloxone HCl (Narcan) 0.2 mg PRN PRN IV DECREASED REPIRATORY RATE; Start at 20:00 Oxycodone/ Acetaminophen (Percocet (5/ 325)) 1 tab Q4H PRN PO PAIN LEVEL 1-5; Start 07/06/16 at 20:00 Oxycodone/ Acetaminophen (Percocet (5/ 325)) 2 tab Q4H PRN PO PAIN LEVEL 6-10; Start 07/06/16 at 20:00 Ondansetron HCl (Zofran Inj) 4 mg Q6H PRN IV NAUSEA AND/OR VOMITING Last administered on 07/13/16 10:54; Admin Dose 4 MG; Start 07/06/16 at 20:00 Diphenhydramine HCl (Benadryl) 25 mg Q6H PRN IV ITCHING Last administered on 06:18; Admin Dose 25 MG; Start 07/06/16 at 20:00 Hydralazine HCl (Apresoline) 10 mg Q6H PRN IV if SBP greater than 150 Last administered on 07/12/16 12:54; Admin Dose 10 MG; Start 07/08/16 at 20:30 Morphine Sulfate (morphine) 1 mg Q3H PRN IV for mild pain Last administered on 07/12/16 07:47; Admin Dose 1 MG; Start 07/08/16 at 20:30; Status Future hold Morphine Sulfate 2 mg 2 mg Q3H PRN IV for moderate to severe pain; Start at 20:30; Status Future hold Potassium Chloride/Dextrose/ Sod Cl (D5-1/2ns + KCl 20 Meq) 1,000 ml @ 50 mls/ hr Q20H IV Last administered on 07/13/16 09:43; Admin Dose 50 MLS/HR; Start at 11:30 Pantoprazole (Protonix Tab) 40 mg DAILY@06 PO Last administered on 07/12/16 05 :57; Admin Dose 40 MG; Start 07/12/16 at 06:00 Levothyroxine Sodium (Synthroid) 75 mcg DAILY@06 PO Last administered on 05:57; Admin Dose 75 MCG; Start 07/12/16 at 06:00 Atenolol (Tenormin) 25 mg DAILY PO Last administered on 07/12/16 09:54; Admin Dose 25 MG; Start 07/12/16 at 10:00 MARY CHAVEZ Jul 13, 2016 11:41
--- NOTE | 2016-07-13 14:42 | RADRPT ---
PROCEDURE: XR Abdomen. CLINICAL INDICATION: Abdomen pain. TECHNIQUE: AP supine abdomen x-ray. COMPARISON: None. FINDINGS: The bowel gas pattern is normal. There is no evidence of obstruction. There are no abnormal calcifications overlying the urinary tracts. There has been recent surgery with vertical midline skin erick and a surgical drain in the pelvis. There are mild degenerative changes of the spine. IMPRESSION: 1. Recent abdominal pelvic surgery. 2. Mild degenerative changes of the spine. 3. No evidence of bowel obstruction. RPTAT: QQ .Brenton Carmen MD, MD Date Time Electronically viewed and signed by .Brenton Carmen MD, MD on 07/13/2016 14:42 .R/
[2016-07-13 19:18] VITALS: BP 150/89; RESP 18
[2016-07-14 05:11] LABS: ADD SCAN DIFF NO
[2016-07-14 05:12] LABS: BASOPHIL # 0.1 10^3/ul (0.0-0.1); BASOPHILS % 0.5 % (0.0-2.0); EOSINOPHILS # 0.7 10^3/ul (0.0-0.5); EOSINOPHILS % 6.3 % (0.0-7.0); HEMATOCRIT 40.6 % (42.0-52.0); HEMOGLOBIN 13.6 g/dl (14.0-18.0); LYMPHOCYTES # 3.2 10^3/ul (0.8-2.9); LYMPHOCYTES % 29.2 % (15.0-51.0); MEAN CORPUSCULAR HEMOGLOBIN 29.5 pg (29.0-33.0); MEAN CORPUSCULAR HGB CONC 33.5 g/dl (32.0-37.0); MEAN CORPUSCULAR VOLUME 88.1 fl (82.0-101.0); MEAN PLATELET VOLUME 9.3 fl (7.4-10.4); MONOCYTE # 0.8 10^3/ul (0.3-0.9); MONOCYTES % 7.3 % (0.0-11.0); NEUTROPHIL # 5.6 10^3/ul (1.6-7.5); NEUTROPHILS % 51.9 % (39.0-77.0); PLATELET COUNT 459 10^3/UL (140-415); RED BLOOD COUNT 4.61 10^6/ul (4.70-6.10); WHITE BLOOD COUNT 10.8 10^3/ul (4.8-10.8)
[2016-07-14 05:22] LABS: POTASSIUM 4.5 mmol/L (3.5-5.1)
[2016-07-14 05:24] LABS: CREATININE 0.77 mg/dl (0.61-1.24)
[2016-07-14 05:25] LABS: CALCIUM 9.2 mg/dl (8.4-10.2)
[2016-07-14] MEDS: LEVOTHYROXINE 75 MCG TAB PO SCH (05:31)
[2016-07-14] MEDS: PANTOPRAZOLE (EC) 40 MG TAB PO SCH (05:31)
[2016-07-14] MEDS: D5W-0.45 NACL + KCL 20 MEQ 1,000 ML IV SCH (05:34)
[2016-07-14 07:57] VITALS: BP 115/73; RESP 18
[2016-07-14] MEDS: ATENOLOL 25 MG TAB PO SCH (08:44)
--- NOTE | 2016-07-14 12:02 | PN ---
Date/Time of Note Date/Time of Note DATE: 07/14/16 TIME: 11:38 Assessment/Plan VTE Prophylaxis VTE Prophylaxis Intervention: SCD's Lines/Catheters IV Catheter Type (from Nrs): Peripheral IV Urinary Cath still in place: No Assessment/Plan Assessment/Plan 55-year-old male: 1. Status post reversal of colostomy, POD#8, BM x 1 approx 2 days ago and ambulating, patient confirmed had 1 episode of vomiting only 2 days ago, NOT yesterday, passing gas Patient still NPO except for meds KUB wnl ? trial of Reglan if needed and resuming clears if Ok with Gen Surgery. Continue ambulation Further recommendations per surgeon Dr Adkins. 2. Hypertension: Atenolol today. 3. Gastroesophageal reflux disease: PPI. 4. Hyperlipidemia: back on Lipitor 5. Hypothyroidism: back on po Synthroid. 6. Hypokalemia: repleting mag and K as needed Prophylaxis: SCDs for DVT prophylaxis, Protonix for GI prophylaxis Disposition: Follow up general surgery recommendations. Hopefully bowel function back soon. NPO except for meds for now while awaiting Gen Surgery recommendations Encourage Ambulation. Subjective 24 Hr Interval Summary Free Text/Dictation Patient remeians stable Still NPO No nausea or emesis x 36 hrs at least, KUB wnl Passing Gas and is hungry Gen Surgery contact regarding resuming clears and if OK to start Reglan if needed Exam/Review of Systems Vital Signs Vitals Vital Signs Date Time Temp Pulse Resp B/P Pulse Ox O2 Delivery O2 Flow Rate FiO2 07/14/16 07:57 98.2 82 18 115/73 96 07/12/16 14:23 Room Air Intake and Output 07/13/16 07/13/16 07/14/16 15:00 23:00 07:00 Intake Total 125 ml 400 ml 550 ml Output Total 350 ml 303 ml Balance 125 ml 50 ml 247 ml Exam Constitutional: alert, oriented, well developed Respiratory: clear to auscultation, normal air movement Cardiovascular: nl pulses, regular rate and rhythm Gastrointestinal: non-tender, other (ZAINAB drain in place ), soft Musculoskeletal: nl extremities to inspection, nl gait and stance Extremities: normal pulses Neurological: CURRENCY EXCHANGE SPECIALIST II-XII intact, nl mental status, nl speech, nl strength Results Result Diagram: 07/14/16 0434 07/14/16433 Results 24 hrs Laboratory Tests Test 07/14/16 04:34 White Blood Count 10.8 Red Blood Count 4.61 L Hemoglobin 13.6 L Hematocrit 40.6 L Mean Corpuscular Volume 88.1 Mean Corpuscular Hemoglobin 29.5 Mean Corpuscular Hemoglobin Concent 33.5 Red Cell Distribution Width 13.0 Platelet Count 459 H Mean Platelet Volume 9.3 Neutrophils % 51.9 Lymphocytes % 29.2 Monocytes % 7.3 Eosinophils % 6.3 Basophils % 0.5 Nucleated Red Blood Cells % 0.0 Neutrophils # 5.6 Lymphocytes # 3.2 H Monocytes # 0.8 Eosinophils # 0.7 H Basophils # 0.1 Nucleated Red Blood Cells # 0.0 Sodium Level 144 Potassium Level 4.5 Chloride Level 104 Carbon Dioxide Level 25 Anion Gap 20 H Blood Urea Nitrogen 18 Creatinine 0.77 Glucose Level 129 Calcium Level 9.2 Medications Medications Current Medications Naloxone HCl (Narcan) 0.2 mg PRN PRN IV DECREASED REPIRATORY RATE; Start at 20:00 Oxycodone/ Acetaminophen (Percocet (5/ 325)) 1 tab Q4H PRN PO PAIN LEVEL 1-5; Start 07/06/16 at 20:00 Oxycodone/ Acetaminophen (Percocet (5/ 325)) 2 tab Q4H PRN PO PAIN LEVEL 6-10; Start 07/06/16 at 20:00 Ondansetron HCl (Zofran Inj) 4 mg Q6H PRN IV NAUSEA AND/OR VOMITING Last administered on 07/13/16 10:54; Admin Dose 4 MG; Start 07/06/16 at 20:00 Diphenhydramine HCl (Benadryl) 25 mg Q6H PRN IV ITCHING Last administered on 06:18; Admin Dose 25 MG; Start 07/06/16 at 20:00 Hydralazine HCl (Apresoline) 10 mg Q6H PRN IV if SBP greater than 150 Last administered on 07/12/16 12:54; Admin Dose 10 MG; Start 07/08/16 at 20:30 Morphine Sulfate (morphine) 1 mg Q3H PRN IV for mild pain Last administered on 07/12/16 07:47; Admin Dose 1 MG; Start 07/08/16 at 20:30; Status Future hold Morphine Sulfate 2 mg 2 mg Q3H PRN IV for moderate to severe pain; Start at 20:30; Status Future hold Potassium Chloride/Dextrose/ Sod Cl (D5-1/2ns + KCl 20 Meq) 1,000 ml @ 50 mls/ hr Q20H IV Last administered on 07/14/16 05:34; Admin Dose 50 MLS/HR; Start at 11:30 Pantoprazole (Protonix Tab) 40 mg DAILY@06 PO Last administered on 07/14/16 05 :31; Admin Dose 40 MG; Start 07/12/16 at 06:00 Levothyroxine Sodium (Synthroid) 75 mcg DAILY@06 PO Last administered on 05:31; Admin Dose 75 MCG; Start 07/12/16 at 06:00 Atenolol (Tenormin) 25 mg DAILY PO Last administered on 07/14/16 08:44; Admin Dose 25 MG; Start 07/12/16 at 10:00 Procedures Procedures PROCEDURE: XR Abdomen. CLINICAL INDICATION: Abdomen pain. TECHNIQUE: AP supine abdomen x-ray. COMPARISON: None. FINDINGS: The bowel gas pattern is normal. There is no evidence of obstruction. There are no abnormal calcifications overlying the urinary tracts. There has been recent surgery with vertical midline skin erick and a surgical drain in the pelvis. There are mild degenerative changes of the spine. IMPRESSION: 1. Recent abdominal pelvic surgery. 2. Mild degenerative changes of the spine. 3. No evidence of bowel obstruction. RPTAT: QQ .Brenton Carmen MD, MD Date Time Electronically viewed and signed by .Brenton Carmen MD, on 07/13/2016 14:42 .R/ CC: MARY CHAVEZ N'DEYE F Jul 14, 2016 11:48
[2016-07-14] MEDS: OXYCODONE/ACETAMINOPHEN (5/325) TAB PO PRN (12:04)
--- NOTE | 2016-07-14 12:38 | PN ---
Date/Time of Note Date/Time of Note DATE: 07/14/16 TIME: 12:37 Assessment/Plan VTE Prophylaxis VTE Prophylaxis Intervention: SCD's Lines/Catheters IV Catheter Type (from Nrsg): Peripheral IV Urinary Cath still in place: No Assessment/Plan Chief Complaint/Hosp Course s/p exp lap reversal of colostomy with severe adhesions and difficult operation Problems: Assessment/Plan no further nausea or vomiting start clears Subjective 24 Hr Interval Summary Free Text/Dictation no further nausea or vomiting, some diarrhea Exam/Review of Systems Vital Signs Vitals Vital Signs Date Time Temp Pulse Resp B/P Pulse Ox O2 Delivery O2 Flow Rate FiO2 07/14/16 07:57 98.2 82 18 115/73 96 07/12/16 14:23 Room Air Intake and Output 07/13/16 07/13/16 07/14/16 15:00 23:00 07:00 Intake Total 125 ml 400 ml 550 ml Output Total 350 ml 303 ml Balance 125 ml 50 ml 247 ml Exam incision c/d/i Results Result Diagram: 07/14/16 0434 07/14/16 0434 Results 24 hrs Laboratory Tests Test 07/14/16 04:34 White Blood Count 10.8 Red Blood Count 4.61 L Hemoglobin 13.6 L Hematocrit 40.6 L Mean Corpuscular Volume 88.1 Mean Corpuscular Hemoglobin 29.5 Mean Corpuscular Hemoglobin Concent 33.5 Red Cell Distribution Width 13.0 Platelet Count 459 H Mean Platelet Volume 9.3 Neutrophils % 51.9 Lymphocytes % 29.2 Monocytes % 7.3 Eosinophils % 6.3 Basophils % 0.5 Nucleated Red Blood Cells % 0.0 Neutrophils # 5.6 Lymphocytes # 3.2 H Monocytes # 0.8 Eosinophils # 0.7 H Basophils # 0.1 Nucleated Red Blood Cells # 0.0 Sodium Level 144 Potassium Level 4.5 Chloride Level 104 Carbon Dioxide Level 25 Anion Gap 20 H Blood Urea Nitrogen 18 Creatinine 0.77 Glucose Level 129 Calcium Level 9.2 Medications Medications Current Medications Naloxone HCl (Narcan) 0.2 mg PRN PRN IV DECREASED REPIRATORY RATE; Start at 20:00 Oxycodone/ Acetaminophen (Percocet (5/ 325)) 1 tab Q4H PRN PO PAIN LEVEL 1-5 Last administered on 07/14/16t 12:04; Admin Dose 1 TAB; Start 07/06/16 at 20:00 Oxycodone/ Acetaminophen (Percocet (5/ 325)) 2 tab Q4H PRN PO PAIN LEVEL 6-10; Start 07/06/16 at 20:00 Ondansetron HCl (Zofran Inj) 4 mg Q6H PRN IV NAUSEA AND/OR VOMITING Last administered on 07/13/16 10:54; Admin Dose 4 MG; Start 07/06/16 at 20:00 Diphenhydramine HCl (Benadryl) 25 mg Q6H PRN IV ITCHING Last administered on 06:18; Admin Dose 25 MG; Start 07/06/16 at 20:00 Hydralazine HCl (Apresoline) 10 mg Q6H PRN IV if SBP greater than 150 Last administered on 07/12/16 12:54; Admin Dose 10 MG; Start 07/08/16 at 20:30 Morphine Sulfate (morphine) 1 mg Q3H PRN IV for mild pain Last administered on 07/12/16 07:47; Admin Dose 1 MG; Start 07/08/16 at 20:30; Status Future hold Morphine Sulfate 2 mg 2 mg Q3H PRN IV for moderate to severe pain; Start at 20:30; Status Future hold Potassium Chloride/Dextrose/ Sod Cl (D5-1/2ns + KCl 20 Meq) 1,000 ml @ 50 mls/ hr Q20H IV Last administered on 07/14/16 05:34; Admin Dose 50 MLS/HR; Start at 11:30 Pantoprazole (Protonix Tab) 40 mg DAILY@06 PO Last administered on 07/14/16 05 :31; Admin Dose 40 MG; Start 07/12/16 at 06:00 Levothyroxine Sodium (Synthroid) 75 mcg DAILY@06 PO Last administered on 05:31; Admin Dose 75 MCG; Start 07/12/16 at 06:00 Atenolol (Tenormin) 25 mg DAILY PO Last administered on 07/14/16 08:44; Admin Dose 25 MG; Start 07/12/16 at 10:00 Lorenzo ALEGRE Jul 14, 2016 12:38
[2016-07-14 20:48] VITALS: BP 132/89; RESP 20
[2016-07-15] MEDS: D5W-0.45 NACL + KCL 20 MEQ 1,000 ML IV SCH ×2 (02:33→22:11)
[2016-07-15] MEDS: PANTOPRAZOLE (EC) 40 MG TAB PO SCH (05:27)
[2016-07-15] MEDS: LEVOTHYROXINE 75 MCG TAB PO SCH (05:28)
[2016-07-15 08:19] VITALS: BP 148/81; RESP 18
[2016-07-15] MEDS: ATENOLOL 25 MG TAB PO SCH (08:55)
--- NOTE | 2016-07-15 11:54 | PN ---
Date/Time of Note Date/Time of Note DATE: 07/15/16 TIME: 11:46 Assessment/Plan VTE Prophylaxis VTE Prophylaxis Intervention: ambulation, SCD's Lines/Catheters IV Catheter Type (from Nrsg): Peripheral IV Urinary Cath still in place: No Assessment/Plan Assessment/Plan 55-year-old male: 1. Status post reversal of colostomy, POD#9, tolerating clears and multipe BM liquid as patient on clears BM, passing gas Advance diet if Ok with Dr Adkins Continue ambulation Further recommendations per surgeon Dr Adkins. 2. Hypertension: Atenolol. 3. Gastroesophageal reflux disease: PPI. 4. Hyperlipidemia: on Lipitor 5. Hypothyroidism: on po Synthroid. Prophylaxis: SCDs for DVT prophylaxis, Protonix for GI prophylaxis Disposition: Follow up general surgery recommendations. Hopefully to advance diet further with d/c plan home in the next 24 to 48 hrs hopefully and also removal of drain prior to discharge. Encourage Ambulation. Subjective 24 Hr Interval Summary Free Text/Dictation Patient tolerating clears well and with loose BM Awaiting Gen surgery for ? advancing diet and ? removal of drain Exam/Review of Systems Vital Signs Vitals Vital Signs Date Time Temp Pulse Resp B/P Pulse Ox O2 Delivery O2 Flow Rate FiO2 07/15/16 08:19 97.8 80 18 148/81 96 07/12/16 14:23 Room Air Intake and Output 07/14/16 07/14/16 07/15/16 14:59 22:59 06:59 Intake Total 1430 ml 900 ml Output Total 770 ml 655 ml Balance 660 ml 245 ml Exam Constitutional: alert, oriented, well developed Respiratory: clear to auscultation, normal air movement Cardiovascular: nl pulses, regular rate and rhythm Gastrointestinal: bowel sounds (active ), non-tender, other, soft Musculoskeletal: nl extremities to inspection Extremities: normal pulses Neurological: FIELD OPERATIONS FARM MANAGER II-XII intact, nl mental status, nl speech, nl strength Results Result Diagram: 07/14/16 0434 07/14/16 0434 Medications Medications Current Medications Naloxone HCl (Narcan) 0.2 mg PRN PRN IV DECREASED REPIRATORY RATE; Start at 20:00 Oxycodone/ Acetaminophen (Percocet (5/ 325)) 1 tab Q4H PRN PO PAIN LEVEL 1-5 Last administered on 07/14/16 12:04; Admin Dose 1 TAB; Start 07/06/16 at 20:00 Oxycodone/ Acetaminophen (Percocet (5/ 325)) 2 tab Q4H PRN PO PAIN LEVEL 6-10; Start 07/06/16 at 20:00 Ondansetron HCl (Zofran Inj) 4 mg Q6H PRN IV NAUSEA AND/OR VOMITING Last administered on 07/13/16 10:54; Admin Dose 4 MG; Start 07/06/16 at 20:00 Diphenhydramine HCl (Benadryl) 25 mg Q6H PRN IV ITCHING Last administered on 06:18; Admin Dose 25 MG; Start 07/06/16 at 20:00 Hydralazine HCl (Apresoline) 10 mg Q6H PRN IV if SBP greater than 150 Last administered on 07/12/16 12:54; Admin Dose 10 MG; Start 07/08/16 at 20:30 Morphine Sulfate (morphine) 1 mg Q3H PRN IV for mild pain Last administered on 07/12/16 07:47; Admin Dose 1 MG; Start 07/08/16 at 20:30; Status Future hold Morphine Sulfate 2 mg 2 mg Q3H PRN IV for moderate to severe pain; Start at 20:30; Status Future hold Potassium Chloride/Dextrose/ Sod Cl (D5-1/2ns + KCl 20 Meq) 1,000 ml @ 50 mls/ hr Q20H IV Last administered on 07/15/16 02:33; Admin Dose 50 MLS/HR; Start at 11:30 Pantoprazole (Protonix Tab) 40 mg DAILY@06 PO Last administered on 07/15/16 05 :27; Admin Dose 40 MG; Start 07/12/16 at 06:00 Levothyroxine Sodium (Synthroid) 75 mcg DAILY@06 PO Last administered on 05:28; Admin Dose 75 MCG; Start 07/12/16 at 06:00 Atenolol (Tenormin) 25 mg DAILY PO Last administered on 07/15/16 08:55; Admin Dose 25 MG; Start 07/12/16 at 10:00 MARY CHAVEZ Jul 15, 2016 11:54
--- NOTE | 2016-07-15 14:08 | PN ---
Date/Time of Note Date/Time of Note DATE: 07/15/16 TIME: 14:07 Assessment/Plan VTE Prophylaxis VTE Prophylaxis Intervention: SCD's Lines/Catheters IV Catheter Type (from Nrs): Peripheral IV Urinary Cath still in place: No Assessment/Plan Chief Complaint/Hosp Course s/p exp lap reversal of colostomy with severe adhesions and difficult operation Problems: Assessment/Plan slow recovery of bowel function start full liquids Subjective 24 Hr Interval Summary Free Text/Dictation having bm, and wants some food Exam/Review of Systems Vital Signs Vitals Vital Signs Date Time Temp Pulse Resp B/P Pulse Ox O2 Delivery O2 Flow Rate FiO2 07/15/16 08:19 97.8 80 18 148/81 96 07/12/16 14:23 Room Air Intake and Output 07/14/16 07/14/16 07/15/16 15:00 23:00 07:00 Intake Total 1430 ml 900 ml Output Total 770 ml 655 ml Balance 660 ml 245 ml Exam c/d/i Results Result Diagram: 07/14/16 0434 07/14/16 0434 Medications Medications Current Medications Naloxone HCl (Narcan) 0.2 mg PRN PRN IV DECREASED REPIRATORY RATE; Start at 20:00 Oxycodone/ Acetaminophen (Percocet (5/ 325)) 1 tab Q4H PRN PO PAIN LEVEL 1-5 Last administered on 07/14/16 12:04; Admin Dose 1 TAB; Start 07/06/16 at 20:00 Oxycodone/ Acetaminophen (Percocet (5/ 325)) 2 tab Q4H PRN PO PAIN LEVEL 6-10; Start 07/06/16 at 20:00 Ondansetron HCl (Zofran Inj) 4 mg Q6H PRN IV NAUSEA AND/OR VOMITING Last administered on 07/13/16 10:54; Admin Dose 4 MG; Start 07/06/16 at 20:00 Diphenhydramine HCl (Benadryl) 25 mg Q6H PRN IV ITCHING Last administered on 06:18; Admin Dose 25 MG; Start 07/06/16 at 20:00 Hydralazine HCl (Apresoline) 10 mg Q6H PRN IV if SBP greater than 150 Last administered on 07/12/16 12:54; Admin Dose 10 MG; Start 07/08/16 at 20:30 Morphine Sulfate (morphine) 1 mg Q3H PRN IV for mild pain Last administered on 07/12/16 07:47; Admin Dose 1 MG; Start 07/08/16 at 20:30; Status Future hold Morphine Sulfate 2 mg 2 mg Q3H PRN IV for moderate to severe pain; Start at 20:30; Status Future hold Potassium Chloride/Dextrose/ Sod Cl (D5-1/2ns + KCl 20 Meq) 1,000 ml @ 50 mls/ hr Q20H IV Last administered on 07/15/16 02:33; Admin Dose 50 MLS/HR; Start at 11:30 Pantoprazole (Protonix Tab) 40 mg DAILY@06 PO Last administered on 07/15/16 05 :27; Admin Dose 40 MG; Start 07/12/16 at 06:00 Levothyroxine Sodium (Synthroid) 75 mcg DAILY@06 PO Last administered on 05:28; Admin Dose 75 MCG; Start 07/12/16 at 06:00 Atenolol (Tenormin) 25 mg DAILY PO Last administered on 07/15/16 08:55; Admin Dose 25 MG; Start 07/12/16 at 10:00 Lorenzo ALEGRE Jul 15, 2016 14:08
[2016-07-15 20:21] VITALS: BP 132/92; RESP 20
[2016-07-15] MEDS: ONDANSETRON 4 MG INJ IV PRN (22:45)
[2016-07-16] MEDS: LEVOTHYROXINE 75 MCG TAB PO SCH (05:31)
[2016-07-16] MEDS: PANTOPRAZOLE (EC) 40 MG TAB PO SCH (05:31)
[2016-07-16 08:04] VITALS: BP 129/86; RESP 18
[2016-07-16] MEDS: ATENOLOL 25 MG TAB PO SCH (08:36)
--- NOTE | 2016-07-16 12:54 | PN ---
Date/Time of Note Date/Time of Note DATE: 07/16/16 TIME: 12:46 Assessment/Plan VTE Prophylaxis VTE Prophylaxis Intervention: SCD's Lines/Catheters IV Catheter Type (from Nrsg): Saline Lock Urinary Cath still in place: No Assessment/Plan Assessment/Plan [facility] 1. Almost 56-year-old man who is day ten s/p laparoscopic reversal of previous colostomy. Continued slow recovery. * Advance diet to full liquids, per Dr. Adkins. * No IV fluids for now. 2. Hypertension * Started on hydralazine PRN for SBP > 150 3. Gastroesophageal reflux disease * Protonix IV 40mg daily 4. Hyperlipidemia * Continue to hold statin. 5. Hypothyroidism * Synthroid switched back this week to oral 6. Hypokalemia resolved earlier this week. * Repeat labs tomorrow morning, including lipase 7. Prophylaxis: SCDs for DVT prophylaxis, Protonix for GI prophylaxis 8. Disposition: Home soon, once bowel function is recovered * Encourage ambulation * Up to chair * Incentive spirometer use * Full-Code Robin Scott MD PhD [phone] Subjective 24 Hr Interval Summary Free Text/Dictation No pain. No headache, chest discomfort, or dyspnea. No visitors at bedside this morning. Exam/Review of Systems Vital Signs Vitals Vital Signs Date Time Temp Pulse Resp B/P Pulse Ox O2 Delivery O2 Flow Rate FiO2 07/16/16 08:04 98.3 77 18 129/86 95 07/12/16 14:23 Room Air Intake and Output 07/15/16 07/15/16 07/16/16 15:00 23:00 07:00 Intake Total 950 ml 1150 ml Output Total 853 ml 1150 ml Balance 97 ml 0 ml Exam Constitutional: Alert, oriented, well developed, looking tired and mildly withdrawn. Respiratory: Clear bilaterally, good air movement Cardiovascular: Symmetric pulses, regular rhythm, normal rate. No murmur. Gastrointestinal: Mild bowel sounds, soft, diffuse tenderness. Musculoskeletal: Normal extremities to inspection with no edema. Neurological: SENIOR SALES ASSOCIATE II-XII intact, normal mental status and speech, motor 5/5 bilaterally. Skin: No rash. Results Result Diagram: 07/14/16 0434 07/14/16 0434 Medications Medications Current Medications Naloxone HCl (Narcan) 0.2 mg PRN PRN IV DECREASED REPIRATORY RATE; Start 4/5/ 17 at 20:00 Oxycodone/ Acetaminophen (Percocet (5/ 325)) 1 tab Q4H PRN PO PAIN LEVEL 1-5 Last administered on 07/14/16 12:04; Admin Dose 1 TAB; Start 07/06/16 at 20:00 Oxycodone/ Acetaminophen (Percocet (5/ 325)) 2 tab Q4H PRN PO PAIN LEVEL 6-10; Start 07/06/16 at 20:00 Ondansetron HCl (Zofran Inj) 4 mg Q6H PRN IV NAUSEA AND/OR VOMITING Last administered on 07/15/16 22:45; Admin Dose 4 MG; Start 07/06/16 at 20:00 Diphenhydramine HCl (Benadryl) 25 mg Q6H PRN IV ITCHING Last administered on 06:18; Admin Dose 25 MG; Start 07/06/16 at 20:00 Hydralazine HCl (Apresoline) 10 mg Q6H PRN IV if SBP greater than 150 Last administered on 07/12/16 12:54; Admin Dose 10 MG; Start 07/08/16 at 20:30 Morphine Sulfate (morphine) 1 mg Q3H PRN IV for mild pain Last administered on 07/12/16 07:47; Admin Dose 1 MG; Start 07/08/16 at 20:30; Status Future hold Morphine Sulfate 2 mg 2 mg Q3H PRN IV for moderate to severe pain; Start at 20:30; Status Future hold Potassium Chloride/Dextrose/ Sod Cl (D5-1/2ns + KCl 20 Meq) 1,000 ml @ 50 mls/ hr Q20H IV Last administered on 07/15/16 22:11; Admin Dose 50 MLS/HR; Start at 11:30 Pantoprazole (Protonix Tab) 40 mg DAILY@06 PO Last administered on 07/16/16 05 :31; Admin Dose 40 MG; Start 07/12/16 at 06:00 Levothyroxine Sodium (Synthroid) 75 mcg DAILY@06 PO Last administered on 05:31; Admin Dose 75 MCG; Start 07/12/16 at 06:00 Atenolol (Tenormin) 25 mg DAILY PO Last administered on 07/16/16 08:36; Admin Dose 25 MG; Start 07/12/16 at 10:00 ALEA SCOTT M.D. Jul 16, 2016 12:54 17at 05:31; Admin Dose 75 MCG; Start 07/12/16 at 06:00 Atenolol (Tenormin) 25 mg DAILY PO Last administered on 07/16/16 08:36; Admin Dose 25 MG; Start 07/12/16 at 10:00 ALEA SCOTT M.D. Jul 16, 2016 12:54
[2016-07-16 14:03] LABS: ADD SCAN DIFF NO
[2016-07-16 14:11] LABS: BASOPHIL # 0.1 10^3/ul (0.0-0.1); BASOPHILS % 0.6 % (0.0-2.0); EOSINOPHILS # 0.5 10^3/ul (0.0-0.5); EOSINOPHILS % 4.1 % (0.0-7.0); HEMATOCRIT 43.1 % (42.0-52.0); HEMOGLOBIN 14.9 g/dl (14.0-18.0); LYMPHOCYTES # 2.7 10^3/ul (0.8-2.9); LYMPHOCYTES % 20.8 % (15.0-51.0); MEAN CORPUSCULAR HEMOGLOBIN 30.1 pg (29.0-33.0); MEAN CORPUSCULAR HGB CONC 34.6 g/dl (32.0-37.0); MEAN CORPUSCULAR VOLUME 87.1 fl (82.0-101.0); MEAN PLATELET VOLUME 9.3 fl (7.4-10.4); MONOCYTE # 0.8 10^3/ul (0.3-0.9); MONOCYTES % 6.3 % (0.0-11.0); NEUTROPHIL # 8.5 10^3/ul (1.6-7.5); NEUTROPHILS % 66.1 % (39.0-77.0); PLATELET COUNT 564 10^3/UL (140-415); RED BLOOD COUNT 4.95 10^6/ul (4.70-6.10); RED CELL DISTRIBUTION WIDTH 12.8 % (11.5-14.5); WHITE BLOOD COUNT 12.8 10^3/ul (4.8-10.8)
[2016-07-16 14:25] LABS: POTASSIUM 4.4 mmol/L (3.5-5.1)
[2016-07-16 14:27] LABS: CREATININE 0.77 mg/dl (0.61-1.24)
[2016-07-16 14:28] LABS: CALCIUM 9.8 mg/dl (8.4-10.2)
[2016-07-16] MEDS: D5W-0.45 NACL + KCL 20 MEQ 1,000 ML IV SCH (18:10)
[2016-07-16] MEDS: morphine 2 MG INJ IV PRN (18:15)
--- NOTE | 2016-07-16 18:27 | PN ---
DATE: 07/16/2016 Postop day #10, status post exploratory laparotomy and partial colon resection and reversal of the c olostomy. SUBJECTIVE: The patient vomited extensively about an hour ago in his room. Nurses reported greeni sh liquid. Also, patient has had a few bowel movements liquidy today. OBJECTIVE GENERAL: Patient is awake, alert, oriented, anxious. VITAL SIGNS: Temperature 98.3, heart rate 77, respiration 18, blood pressure 129/86, saturation 95% room air. LABORATORIES: Anion gap is 18, a little bit high today, lipase is 1067, very high, question of caus e. WBC increased to 12,800 today with 66% neutrophils. Platelet count is up to 564. Hemoglobin 14 .9, hematocrit 43.1. Patient also complains of abdominal pain in both lower quadrants. ASSESSMENT AND PLAN: A 55-year-old gentleman who underwent exploratory laparotomy and reversal of t he colostomy that he had before for colon injury. The patient today is postop day #10, patient de la garza s been on full liquid diet, but he vomited today, extensive amount of bilious material and the nurs es report that he also vomited a few days ago, once but also he has been having liquid bowel movemen ts 4 times a day. PLAN: 1. I am going to help keep the patient n.p.o. give IV fluids with potassium. 2. Work him up for the cause of the increased lipase to 1076. 3. We will get a CT scan of the abdomen and pelvis with oral and IV contrast to detect any patholog y including pancreatitis and/or abscess in the pelvis. Will repeat CBC and CMP tomorrow morning. F urther decision will be made upon the lab results and CT scan results. Dictated By: SIRISHA SALEH MD PS/NTS Conf#: [id number] DID#: [id number]
[2016-07-16] MEDS ORDERED: IOHEXOL 300MG/ML 150 ML BTL ONE (18:35)
[2016-07-16] MEDS ORDERED: SOD CHLORIDE 0.9% 100 ML ONE (18:35)
[2016-07-16 20:33] VITALS: BP 124/86; RESP 20
[2016-07-17] MEDS: D5W-0.45 NACL + KCL 20 MEQ 1,000 ML IV SCH ×3 (04:09→20:43)
[2016-07-17] MEDS: PANTOPRAZOLE (EC) 40 MG TAB PO SCH (06:00)
[2016-07-17] MEDS: LEVOTHYROXINE 75 MCG TAB PO SCH (06:00)
[2016-07-17 06:25] LABS: ADD SCAN DIFF NO
[2016-07-17 06:28] LABS: BASOPHIL # 0.1 10^3/ul (0.0-0.1); BASOPHILS % 0.4 % (0.0-2.0); EOSINOPHILS # 0.6 10^3/ul (0.0-0.5); EOSINOPHILS % 5.1 % (0.0-7.0); HEMATOCRIT 41.9 % (42.0-52.0); HEMOGLOBIN 14.1 g/dl (14.0-18.0); LYMPHOCYTES # 2.4 10^3/ul (0.8-2.9); LYMPHOCYTES % 19.8 % (15.0-51.0); MEAN CORPUSCULAR HEMOGLOBIN 29.3 pg (29.0-33.0); MEAN CORPUSCULAR HGB CONC 33.7 g/dl (32.0-37.0); MEAN CORPUSCULAR VOLUME 86.9 fl (82.0-101.0); MEAN PLATELET VOLUME 9.7 fl (7.4-10.4); MONOCYTE # 0.9 10^3/ul (0.3-0.9); MONOCYTES % 7.2 % (0.0-11.0); NEUTROPHIL # 7.9 10^3/ul (1.6-7.5); NEUTROPHILS % 65.8 % (39.0-77.0); PLATELET COUNT 524 10^3/UL (140-415); RED BLOOD COUNT 4.82 10^6/ul (4.70-6.10)
[2016-07-17 06:35] LABS: ALBUMIN 4.3 g/dl (3.3-4.9)
[2016-07-17 06:36] LABS: POTASSIUM 4.1 mmol/L (3.5-5.1)
[2016-07-17 06:38] LABS: ALBUMIN/GLOBULIN RATIO 1.1; BILIRUBIN,INDIRECT 1.1 mg/dl (0-1.1); BILIRUBIN,TOTAL 1.1 mg/dl (0.2-1.3); CREATININE 0.77 mg/dl (0.61-1.24); TOTAL PROTEIN 8.2 g/dl (6.1-8.1)
[2016-07-17 06:39] LABS: CALCIUM 9.3 mg/dl (8.4-10.2)
[2016-07-17 08:02] VITALS: BP 122/81; RESP 14
--- NOTE | 2016-07-17 09:21 | RADRPT ---
PROCEDURE: CT abdomen and pelvis with intravenous contrast. CLINICAL INDICATION: abdominal pain and vomiting post op TECHNIQUE: Following intravenous contrast, spiral CT of the abdomen pelvis was performed and is re constructed at 2.5 mm contiguous axial intervals from the dome of the diaphragm to the inferior pubi c rami. Computer reformatted coronal and sagittal images are included. CT D I 7 millicurie Dose 428 millicurie per centimeter COMPARISON: None. FINDINGS: Lung bases are clear of any infiltrate or mass. There is no effusion. There is minimal fibrosis or atelectasis deep in the costophrenic recesses. The liver is of normal size, contour and attenuation with no solid mass or intrahepatic ductal dilat ation. 5 mm cyst is seen in the anterior segment of the right lobe. Dependent gallstones are prese nt. No splenic, adrenal or pancreatic abnormalities present. Kidneys enhance symmetrically. No hydronephrosis, calculus or masses present. Ureters are of samreen l course and caliber with no stone. No bladder masses stone is present. There is gas within non de pendent urinary bladder likely related to recent instrumentation.. Prostate and seminal vesicles are normal. The patient is likely status post reversal of left lower quadrant colostomy. Laparotomy erick are present. The stoma remains in the left anterior abdominal wall. There is a surgical drain with th e tip in the left lower quadrant. There is evidence of small bowel resection. Scattered distended small bowel loops are seen in the abdomen. The colon and rectum are decompressed. The appendix is not confidently visualized, however, no inflamed appendix is seen. There is a small volume of ascit es. No pneumoperitoneum is present. No abscess is identified. No aneurysm is detected. There is no adenopathy. The osseous structures are intact. IMPRESSION: Status post recent laparotomy with probable reversal of the colostomy. Scattered distended small marlen wel loops suggestive of postoperative ileus. Small volume ascites with surgical drain. No abscess identified. Cholelithiasis. Minimal bibasilar lung fibrosis or atelectasis. .Kike Bergman MD, MD Date Time Electronically viewed and signed by .Kike Bergman MDMD on 07/17/2016 09:20 .Eleazar
[2016-07-17] MEDS: ATENOLOL 25 MG TAB PO SCH (10:05)
[2016-07-17 13:48] LABS: AMYLASE 257 U/L (11-123)
--- NOTE | 2016-07-17 18:35 | PN ---
DATE: 07/17/2016 SUBJECTIVE: No new events. No more nausea or vomiting. Has passed a slight amount of loose stool today. OBJECTIVE GENERAL: Awake, alert. VITAL SIGNS: Temperature 98.4, heart rate 71, respiration 14, blood pressure 122/81, saturation 95% on room air. LABORATORY DATA: WBC 12,000 with 65% neutrophils. Hemoglobin 14.1, hematocrit 41.9. Chemistry: Amylase 257, lipase 938. CT scan was done yesterday with IV contrast. Unfortunately, I had requested also p.o. Gastrografin contrast, but they did not do it and the report is as follows: Impression: Status post recent laparotomy with probable reversal of the colostomy, scattered distended small bowel loops suggestive of postoperative ileus, small volume ascites with surgical drain. No abscess identified. Physical examination: Abdomen is slightly distended, is not soft. Bowel sound is occasionally heard. ASSESSMENT AND PLAN: Postoperative 10 days at least closure of colostomy. Patient has vomited yesterday a lot of greenish fluid and then we requested a CT scan of the abdomen and pelvis with IV and oral contrast. Unfortunately, they did not give the oral contrast, so we do see the continuation of the anatomy of the GI system but on CT scan, when I looked it myself, I see a lot of fluid retained in the stomach and small bowel loops with loop dilatation. They suggested that this is probably ileus or I think it could be partial obstruction. Therefore, I am going to plan. I am to get a small upper gastrointestinal and a small bowel follow-through with Gastrografin today if possible, if not tomorrow. Also, it should be mentioned that the amylase and lipase, which was high up yesterday, today has decreased slightly but not completely. so for some reason he has developed pancreatitis,as well. Dictated By: SIRISHA OROSCO/INOCENCIO Conf#: [id number] DID#: [id number] MTDD
[2016-07-17 19:03] VITALS: BP 124/81; RESP 16
--- NOTE | 2016-07-17 20:17 | PN ---
Date/Time of Note Date/Time of Note DATE: 07/17/16 TIME: 20:17 Assessment/Plan VTE Prophylaxis VTE Prophylaxis Intervention: SCD's Lines/Catheters IV Catheter Type (from Nrsg): Peripheral IV Urinary Cath still in place: No Assessment/Plan Assessment/Plan [facility] 1. Almost 56-year-old man who is post-op day 11 s/p laparoscopic reversal of previous colostomy. Now with elevated lipase, continued abdominal discomfort, no appetite, and not tolerating POs. * Per Dr. Adkins, NPO again with renewed IV fluids. 2. Hypertension -- well-controlled on atenolol. No hydralazine needed since 02/17. 3. Gastroesophageal reflux disease * Protonix PO 4. Hyperlipidemia * Continue to hold statin. 5. Hypothyroidism * Synthroid PO 6. Prophylaxis: SCDs for DVT prophylaxis, Protonix for GI prophylaxis 8. Disposition: Home soon, once bowel function is recovered * Encourage ambulation * Up to chair * Incentive spirometer use * Full-Code Robin Scott MD PhD [phone] Subjective 24 Hr Interval Summary Free Text/Dictation No visitors this morning. Had nausea and emesis last night. Only mild epigastric discomfort. No dyspnea, cough or feverishness. Exam/Review of Systems Vital Signs Vitals Vital Signs Date Time Temp Pulse Resp B/P Pulse Ox O2 Delivery O2 Flow Rate FiO2 07/17/16 19:03 98.1 71 16 124/81 98 Intake and Output 07/16/16 07/16/16 07/17/16 15:00 23:00 07:00 Intake Total 1160 ml 1470 ml Output Total 1102 ml 552 ml Balance 58 ml 918 ml Exam Constitutional: Alert, well developed, appearing tired, but friendly. Respiratory: Clear bilaterally, good air movement Cardiovascular: Symmetric pulses, regular rhythm, normal rate. No murmur. Gastrointestinal: Mild bowel sounds, soft, mild diffuse tenderness, no rebound or guarding, incision clean and dry. Musculoskeletal: Normal extremities with no edema. Neurological: INTERLIBRARY LOAN SERVICES LIBRARIAN II-XII intact, normal mental status and speech, motor 5/5 bilaterally. Skin: No rash. Results Result Diagram: 07/17/1627 07/17/1627 Results 24 hrs Laboratory Tests Test 07/17/16 05:27 White Blood Count 12.0 H Red Blood Count 4.82 Hemoglobin 14.1 Hematocrit 41.9 L Mean Corpuscular Volume 86.9 Mean Corpuscular Hemoglobin 29.3 Mean Corpuscular Hemoglobin Concent 33.7 Red Cell Distribution Width 13.0 Platelet Count 524 H Mean Platelet Volume 9.7 Neutrophils % 65.8 Lymphocytes % 19.8 Monocytes % 7.2 Eosinophils % 5.1 Basophils % 0.4 Nucleated Red Blood Cells % 0.0 Neutrophils # 7.9 H Lymphocytes # 2.4 Monocytes # 0.9 Eosinophils # 0.6 H Basophils # 0.1 Nucleated Red Blood Cells # 0.0 Sodium Level 138 Potassium Level 4.1 Chloride Level 102 Carbon Dioxide Level 23 Anion Gap 17 H Blood Urea Nitrogen 19 Creatinine 0.77 Glucose Level 148 Calcium Level 9.3 Total Bilirubin 1.1 Direct Bilirubin 0.00 Indirect Bilirubin 1.1 Aspartate Amino Transf (AST/SGOT) 19 Alanine Aminotransferase (ALT/SGPT) 28 Alkaline Phosphatase 69 Total Protein 8.2 H Albumin 4.3 Globulin 3.90 H Albumin/Globulin Ratio 1.10 Amylase Level 257 H Lipase 938 H Medications Medications Current Medications Naloxone HCl (Narcan) 0.2 mg PRN PRN IV DECREASED REPIRATORY RATE; Start at 20:00 Oxycodone/ Acetaminophen (Percocet (5/ 325)) 1 tab Q4H PRN PO PAIN LEVEL 1-5 Last administered on 07/14/16 12:04; Admin Dose 1 TAB; Start 07/06/16 at 20:00 Oxycodone/ Acetaminophen (Percocet (5/ 325)) 2 tab Q4H PRN PO PAIN LEVEL 6-10; Start 07/06/16 at 20:00 Ondansetron HCl (Zofran Inj) 4 mg Q6H PRN IV NAUSEA AND/OR VOMITING Last administered on 07/15/16 22:45; Admin Dose 4 MG; Start 07/06/16 at 20:00 Diphenhydramine HCl (Benadryl) 25 mg Q6H PRN IV ITCHING Last administered on 06:18; Admin Dose 25 MG; Start 07/06/16 at 20:00 Hydralazine HCl (Apresoline) 10 mg Q6H PRN IV if SBP greater than 150 Last administered on 07/12/16 12:54; Admin Dose 10 MG; Start 07/08/16 at 20:30 Morphine Sulfate (morphine) 1 mg Q3H PRN IV for mild pain Last administered on 07/12/16 07:47; Admin Dose 1 MG; Start 07/08/16 at 20:30; Status Future hold Morphine Sulfate (morphine) 2 mg Q3H PRN IV for moderate to severe pain Last administered on 07/16/16 18:15; Admin Dose 2 MG; Start 07/08/16 at 20:30; Status Future hold Pantoprazole (Protonix Tab) 40 mg DAILY@06 PO Last administered on 07/16/16 05 :31; Admin Dose 40 MG; Start 07/12/16 at 06:00 Levothyroxine Sodium (Synthroid) 75 mcg DAILY@06 PO Last administered on 05:31; Admin Dose 75 MCG; Start 07/12/16 at 06:00 Atenolol 25 mg 25 mg DAILY PO Last administered on 07/17/16 10:05; Admin Dose 25 MG; Start 07/12/16 at 10:00 Potassium Chloride/Dextrose/ Sod Cl (D5-1/2ns + KCl 20 Meq) 1,000 ml @ 120 mls/ hr Q8H20M IV Last administered on 07/17/16 12:43; Admin Dose 120 MLS/HR; Start 07/16/16 at 18:00 ALEA SCOTT M.D. Jul 17, 2016 20:17
[2016-07-18 05:03] LABS: ADD SCAN DIFF NO
[2016-07-18] MEDS: D5W-0.45 NACL + KCL 20 MEQ 1,000 ML IV SCH ×4 (05:11→22:30)
[2016-07-18 05:16] LABS: BASOPHIL # 0.1 10^3/ul (0.0-0.1); BASOPHILS % 0.4 % (0.0-2.0); EOSINOPHILS # 0.5 10^3/ul (0.0-0.5); EOSINOPHILS % 4.4 % (0.0-7.0); HEMATOCRIT 37.3 % (42.0-52.0); HEMOGLOBIN 12.8 g/dl (14.0-18.0); LYMPHOCYTES # 2.6 10^3/ul (0.8-2.9); LYMPHOCYTES % 22.1 % (15.0-51.0); MEAN CORPUSCULAR HEMOGLOBIN 30.1 pg (29.0-33.0); MEAN CORPUSCULAR HGB CONC 34.3 g/dl (32.0-37.0); MEAN CORPUSCULAR VOLUME 87.8 fl (82.0-101.0); MEAN PLATELET VOLUME 10.1 fl (7.4-10.4); MONOCYTE # 0.8 10^3/ul (0.3-0.9); MONOCYTES % 6.9 % (0.0-11.0); NEUTROPHIL # 7.7 10^3/ul (1.6-7.5); NEUTROPHILS % 65.1 % (39.0-77.0); PLATELET COUNT 449 10^3/UL (140-415); RED BLOOD COUNT 4.25 10^6/ul (4.70-6.10); RED CELL DISTRIBUTION WIDTH 12.5 % (11.5-14.5); WHITE BLOOD COUNT 11.8 10^3/ul (4.8-10.8)
[2016-07-18] MEDS: PANTOPRAZOLE (EC) 40 MG TAB PO SCH (05:21)
[2016-07-18] MEDS: LEVOTHYROXINE 75 MCG TAB PO SCH (05:21)
[2016-07-18 05:35] LABS: AMYLASE 302 U/L (11-123)
[2016-07-18 07:27] VITALS: BP 119/79; RESP 20
[2016-07-18] MEDS: ATENOLOL 25 MG TAB PO SCH (08:27)
--- NOTE | 2016-07-18 09:06 | PN ---
Date/Time of Note Date/Time of Note DATE: 07/18/16 TIME: 09:04 Assessment/Plan VTE Prophylaxis VTE Prophylaxis Intervention: SCD's Lines/Catheters IV Catheter Type (from Nrsg): Peripheral IV Urinary Cath still in place: No Assessment/Plan Chief Complaint/Hosp Course s/p exp lap reversal of colostomy with severe adhesions and difficult operation Problems: Assessment/Plan new onset of pancreatitis, history of heavy alcohol use, and gallstones NPO IVF Subjective 24 Hr Interval Summary Free Text/Dictation some abd pain onset on pancreatitis, patient admits to heavy alcohol consumption previously Exam/Review of Systems Vital Signs Vitals Vital Signs Date Time Temp Pulse Resp B/P Pulse Ox O2 Delivery O2 Flow Rate FiO2 07/18/16 07:27 97.9 72 20 119/79 97 Intake and Output 07/17/16 07/17/16 07/18/16 15:00 23:00 07:00 Intake Total 1000 ml 600 ml 1540 ml Output Total 405 ml 15 ml Balance 1000 ml 195 ml 1525 ml Exam c/d/i some abd tenderness, no peritoneal signs Results Result Diagram: 07/18/16 0445 07/17/16 0527 Results 24 hrs Laboratory Tests Test 07/18/16 04:45 White Blood Count 11.8 H Red Blood Count 4.25 L Hemoglobin 12.8 L Hematocrit 37.3 L Mean Corpuscular Volume 87.8 Mean Corpuscular Hemoglobin 30.1 Mean Corpuscular Hemoglobin Concent 34.3 Red Cell Distribution Width 12.5 Platelet Count 449 H Mean Platelet Volume 10.1 Neutrophils % 65.1 Lymphocytes % 22.1 Monocytes % 6.9 Eosinophils % 4.4 Basophils % 0.4 Nucleated Red Blood Cells % 0.0 Neutrophils # 7.7 H Lymphocytes # 2.6 Monocytes # 0.8 Eosinophils # 0.5 Basophils # 0.1 Nucleated Red Blood Cells # 0.0 Amylase Level 302 H Lipase 1315 H Medications Medications Current Medications Naloxone HCl (Narcan) 0.2 mg PRN PRN IV DECREASED REPIRATORY RATE; Start at 20:00 Oxycodone/ Acetaminophen (Percocet (5/ 325)) 1 tab Q4H PRN PO PAIN LEVEL 1-5 Last administered on 07/14/16t 12:04; Admin Dose 1 TAB; Start 07/06/16 at 20:00 Oxycodone/ Acetaminophen (Percocet (5/ 325)) 2 tab Q4H PRN PO PAIN LEVEL 6-10; Start 07/06/16 at 20:00 Ondansetron HCl (Zofran Inj) 4 mg Q6H PRN IV NAUSEA AND/OR VOMITING Last administered on 07/15/16 22:45; Admin Dose 4 MG; Start 07/06/16 at 20:00 Diphenhydramine HCl (Benadryl) 25 mg Q6H PRN IV ITCHING Last administered on 06:18; Admin Dose 25 MG; Start 07/06/16 at 20:00 Hydralazine HCl (Apresoline) 10 mg Q6H PRN IV if SBP greater than 150 Last administered on 07/12/16 12:54; Admin Dose 10 MG; Start 07/08/16 at 20:30 Morphine Sulfate (morphine) 1 mg Q3H PRN IV for mild pain Last administered on 07/12/16 07:47; Admin Dose 1 MG; Start 07/08/16 at 20:30; Status Future hold Morphine Sulfate (morphine) 2 mg Q3H PRN IV for moderate to severe pain Last administered on 07/16/16 18:15; Admin Dose 2 MG; Start 07/08/16 at 20:30; Status Future hold Pantoprazole (Protonix Tab) 40 mg DAILY@06 PO Last administered on 07/16/16 05 :31; Admin Dose 40 MG; Start 07/12/16 at 06:00 Levothyroxine Sodium (Synthroid) 75 mcg DAILY@06 PO Last administered on 05:31; Admin Dose 75 MCG; Start 07/12/16 at 06:00 Atenolol 25 mg 25 mg DAILY PO Last administered on 07/18/16 08:27; Admin Dose 25 MG; Start 07/12/16 at 10:00 Potassium Chloride/Dextrose/ Sod Cl (D5-1/2ns + KCl 20 Meq) 1,000 ml @ 120 mls/ hr Q8H20M IV Last administered on 07/18/16 05:11; Admin Dose 120 MLS/HR; Start 07/16/16 at 18:00 Lorenzo ALEGRE Jul 18, 2016 09:06
--- NOTE | 2016-07-18 11:37 | PN ---
Date/Time of Note Date/Time of Note DATE: 07/18/16 TIME: 11:23 Assessment/Plan VTE Prophylaxis VTE Prophylaxis Intervention: SCD's Lines/Catheters [facility] Peripheral IV Urinary Cath still in place: No Assessment/Plan Assessment/Plan 55 year-old man 1. POD# 12 s/p laparoscopic reversal of previous colostomy. Now with elevated lipase, NPO, SBFT pending Lipase back up in the 1300's MRCP today Per Dr. Adkins, NPO again with renewed IV fluids. 2. Acute Pancreatitis: unclear etiology, CT non conclusive, MRCP and FLP pending 3. Hypertension -- well-controlled, back on NPO Continue hydralazine prn. 4. Gastroesophageal reflux disease Protonix to be changed to IV 5. Hyperlipidemia: holding statins for now. 6. Hypothyroidism: change back to IV Synthroid Prophylaxis: SCDs for DVT prophylaxis, Protonix for GI prophylaxis Disposition: NPO, SBFT pending and MRCP to ordered while trending pancreatic enzymes. Subjective 24 Hr Interval Summary Free Text/Dictation Patient doing Ok but now with ? SBO and pancreatitis with lipase up to 1300's today Has been back to NPO status, abdo TTP SBFT pending and also will order MRCP given further elevation of Lipase Exam/Review of Systems Vital Signs Vitals Vital Signs Date Time Temp Pulse Resp B/P Pulse Ox O2 Delivery O2 Flow Rate FiO2 07/18/16 07:27 97.9 72 20 119/79 97 Intake and Output 07/17/16 07/17/16 07/18/16 15:00 23:00 07:00 Intake Total 1000 ml 600 ml 1540 ml Output Total 405 ml 15 ml Balance 1000 ml 195 ml 1525 ml Exam Constitutional: alert, oriented, well developed Respiratory: clear to auscultation, normal air movement Cardiovascular: murmurs/extra sounds, nl pulses, regular rate and rhythm Gastrointestinal: soft, tender (diffuse TTP ) Musculoskeletal: nl extremities to inspection Extremities: normal pulses, other (no edema, clubbing or cyanosis ) Neurological: LEGAL INSTRUCTOR II-XII intact, nl mental status, nl speech, nl strength Results Result Diagram: 07/18/16 0445 07/17/16 0527 Results 24 hrs Laboratory Tests Test 07/18/16 04:45 White Blood Count 11.8 H Red Blood Count 4.25 L Hemoglobin 12.8 L Hematocrit 37.3 L Mean Corpuscular Volume 87.8 Mean Corpuscular Hemoglobin 30.1 Mean Corpuscular Hemoglobin Concent 34.3 Red Cell Distribution Width 12.5 Platelet Count 449 H Mean Platelet Volume 10.1 Neutrophils % 65.1 Lymphocytes % 22.1 Monocytes % 6.9 Eosinophils % 4.4 Basophils % 0.4 Nucleated Red Blood Cells % 0.0 Neutrophils # 7.7 H Lymphocytes # 2.6 Monocytes # 0.8 Eosinophils # 0.5 Basophils # 0.1 Nucleated Red Blood Cells # 0.0 Amylase Level 302 H Lipase 1315 H Medications Medications Current Medications Naloxone HCl (Narcan) 0.2 mg PRN PRN IV DECREASED REPIRATORY RATE; Start at 20:00 Oxycodone/ Acetaminophen (Percocet (5/ 325)) 1 tab Q4H PRN PO PAIN LEVEL 1-5 Last administered on 07/14/16 12:04; Admin Dose 1 TAB; Start 07/06/16 at 20:00 Oxycodone/ Acetaminophen (Percocet (5/ 325)) 2 tab Q4H PRN PO PAIN LEVEL 6-10; Start 07/06/16 at 20:00 Ondansetron HCl (Zofran Inj) 4 mg Q6H PRN IV NAUSEA AND/OR VOMITING Last administered on 07/15/16 22:45; Admin Dose 4 MG; Start 07/06/16 at 20:00 Diphenhydramine HCl (Benadryl) 25 mg Q6H PRN IV ITCHING Last administered on 06:18; Admin Dose 25 MG; Start 07/06/16 at 20:00 Hydralazine HCl (Apresoline) 10 mg Q6H PRN IV if SBP greater than 150 Last administered on 07/12/16 12:54; Admin Dose 10 MG; Start 07/08/16 at 20:30 Morphine Sulfate (morphine) 1 mg Q3H PRN IV for mild pain Last administered on 07/12/16 07:47; Admin Dose 1 MG; Start 07/08/16 at 20:30; Status Future hold Morphine Sulfate (morphine) 2 mg Q3H PRN IV for moderate to severe pain Last administered on 07/16/16 18:15; Admin Dose 2 MG; Start 07/08/16 at 20:30; Status Future hold Pantoprazole (Protonix Tab) 40 mg DAILY@06 PO Last administered on 07/16/16 05 :31; Admin Dose 40 MG; Start 07/12/16 at 06:00 Levothyroxine Sodium (Synthroid) 75 mcg DAILY@06 PO Last administered on 05:31; Admin Dose 75 MCG; Start 07/12/16 at 06:00 Atenolol 25 mg 25 mg DAILY PO Last administered on 07/18/16 08:27; Admin Dose 25 MG; Start 07/12/16 at 10:00 Potassium Chloride/Dextrose/ Sod Cl (D5-1/2ns + KCl 20 Meq) 1,000 ml @ 120 mls/ hr Q8H20M IV Last administered on 07/18/16 05:11; Admin Dose 120 MLS/HR; Start 07/16/16 at 18:00 MARY CHAVEZ Jul 18, 2016 11:35
[2016-07-18 11:50] LABS: ALBUMIN 3.9 g/dl (3.3-4.9)
[2016-07-18 11:53] LABS: ALBUMIN/GLOBULIN RATIO 1.25; BILIRUBIN,INDIRECT 0.8 mg/dl (0-1.1); BILIRUBIN,TOTAL 0.8 mg/dl (0.2-1.3); CALCIUM 9.3 mg/dl (8.4-10.2); CREATININE 0.73 mg/dl (0.61-1.24)
[2016-07-18] MEDS: LEVOTHYROXINE 100 MCG VIAL IV SCH (12:44)
[2016-07-18 12:56] LABS: CHOL/HDL RATIO 5.2 RATIO
[2016-07-18] MEDS ORDERED: LORAZEPAM 2 MG INJ IV ONE (15:30)
[2016-07-18 19:11] VITALS: BP 122/65; RESP 18
[2016-07-19 04:49] LABS: ADD SCAN DIFF NO
[2016-07-19] MEDS: D5W-0.45 NACL + KCL 20 MEQ 1,000 ML IV SCH ×2 (04:57→20:01)
[2016-07-19] MEDS: PANTOPRAZOLE 40 MG INJ IV SCH (04:57)
[2016-07-19] MEDS: LEVOTHYROXINE 100 MCG VIAL IV SCH (04:58)
[2016-07-19 04:59] LABS: BASOPHIL # 0.1 10^3/ul (0.0-0.1); BASOPHILS % 0.5 % (0.0-2.0); EOSINOPHILS # 0.4 10^3/ul (0.0-0.5); EOSINOPHILS % 3.1 % (0.0-7.0); HEMATOCRIT 35.4 % (42.0-52.0); HEMOGLOBIN 12.3 g/dl (14.0-18.0); LYMPHOCYTES # 1.6 10^3/ul (0.8-2.9); LYMPHOCYTES % 13.5 % (15.0-51.0); MEAN CORPUSCULAR HEMOGLOBIN 30.5 pg (29.0-33.0); MEAN CORPUSCULAR HGB CONC 34.7 g/dl (32.0-37.0); MEAN CORPUSCULAR VOLUME 87.8 fl (82.0-101.0); MEAN PLATELET VOLUME 9.9 fl (7.4-10.4); MONOCYTE # 0.7 10^3/ul (0.3-0.9); MONOCYTES % 5.6 % (0.0-11.0); NEUTROPHIL # 9.3 10^3/ul (1.6-7.5); NEUTROPHILS % 76.6 % (39.0-77.0); PLATELET COUNT 480 10^3/UL (140-415); RED BLOOD COUNT 4.03 10^6/ul (4.70-6.10); RED CELL DISTRIBUTION WIDTH 12.6 % (11.5-14.5); WHITE BLOOD COUNT 12.1 10^3/ul (4.8-10.8)
[2016-07-19 05:31] LABS: ALBUMIN 3.7 g/dl (3.3-4.9); ALBUMIN/GLOBULIN RATIO 1.08; CALCIUM 8.8 mg/dl (8.4-10.2); CREATININE 0.76 mg/dl (0.61-1.24); POTASSIUM 4.5 mmol/L (3.5-5.1); TOTAL PROTEIN 7.1 g/dl (6.1-8.1)
[2016-07-19 05:42] LABS: MAGNESIUM 1.8 mg/dl (1.7-2.5); PHOSPHORUS 3.7 mg/dl (2.5-4.9)
[2016-07-19 07:26] VITALS: BP 102/62; RESP 18
--- NOTE | 2016-07-19 08:13 | RADRPT ---
PROCEDURE: MRI Abdomen without contrast CLINICAL INDICATION: Pancreatitis. TECHNIQUE: Routine MRI of the abdomen is performed without the administration of intravenous contr ast. COMPARISON: CT, 07/16/2016. FINDINGS: Liver demonstrates homogeneous signal without a focal lesion. There is sludge in the gallbladder. No intra- or extra-hepatic biliary dilatation. Spleen, adrenal glands, and pancreas are unremarkable. No evidence of hydronephrosis. Visualized bowel demonstrates nonspecific distension. There are postoperative changes consistent with a midline incision IMPRESSION: Examination is limited due to severe respiratory motion artifact, resulting in degradation of image quality. No radiologic evidence of pancreatitis, as clinically queried. Distended loops of bowel identified in the visualized portion of the upper abdomen, previously alba cterized as a postoperative ileus. RPTAT: EE .Freddy Yip MD, Date Time Electronically viewed and signed by .Freddy Yip MD, on 07/19/2016 08:17 .C/
[2016-07-19] MEDS: ATENOLOL 25 MG TAB PO SCH (09:00)
[2016-07-19] MEDS ORDERED: DIATR MEGLU/DIATRIZOATE SODIUM 120 ML BTL ONE (09:10)
--- NOTE | 2016-07-19 11:19 | PN ---
Date/Time of Note Date/Time of Note DATE: 07/19/16 TIME: 11:13 Assessment/Plan VTE Prophylaxis VTE Prophylaxis Intervention: SCD's Lines/Catheters IV [facility] (from [facility]): Peripheral IV Urinary Cath still in place: No Assessment/Plan Assessment/Plan 55 year-old man 1. POD# 13 s/p laparoscopic reversal of previous colostomy. Now with elevated lipase, MRCP negative for even pancreatic inflammation. Lipase trending down NPO, SBFT being done currently. Lipase in 700's today Per Dr. Adkins, NPO again with renewed IV fluids. 2. Acute Pancreatitis: unclear etiology, CT non conclusive, MRCP and FLP pending 3. Hypertension -- well-controlled, back on NPO status Continue hydralazine prn. 4. Gastroesophageal reflux disease Protonix IV 5. Hyperlipidemia: holding statins for now. 6. Hypothyroidism: IV Synthroid Prophylaxis: SCDs for DVT prophylaxis, Protonix for GI prophylaxis Disposition: NPO, SBFT pending and monitor pancreatic enzymes. Subjective 24 Hr Interval Summary Free Text/Dictation Patient doing OK No complaints so far, just had contrast po and no vomiting so far MRCP with no acute pancreatitis findings Lipase coming down today and SBFT in progress Exam/Review of Systems Vital Signs Vitals Vital Signs Date Time Temp Pulse Resp B/P Pulse Ox O2 Delivery O2 Flow Rate FiO2 07/19/16 07:26 98.3 79 18 102/62 97 Intake and Output 07/18/16 07/18/16 07/19/16 15:00 23:00 07:00 Intake Total 1000 ml 600 ml 1440 ml Output Total 300 ml 500 ml Balance 1000 ml 300 ml 940 ml Exam Constitutional: alert, oriented, well developed Respiratory: clear to auscultation, normal air movement Cardiovascular: nl pulses, regular rate and rhythm Gastrointestinal: soft, tender (minimal diffuse TTP with incision/erick in place, drain in place ) Musculoskeletal: nl extremities to inspection Extremities: normal pulses, other (no edema, clubbing or cyanosis ) 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, nl mental status, nl speech, nl strength Results Result Diagram: 07/19/16 0424 07/19/164 Results 24 hrs Laboratory Tests Test 07/18/16 15:28 07/19/16 04:24 Bedside Glucose 91 White Blood Count 12.1 H Red Blood Count 4.03 L Hemoglobin 12.3 L Hematocrit 35.4 L Mean Corpuscular Volume 87.8 Mean Corpuscular Hemoglobin 30.5 Mean Corpuscular Hemoglobin Concent 34.7 Red Cell Distribution Width 12.6 Platelet Count 480 H Mean Platelet Volume 9.9 Neutrophils % 76.6 Lymphocytes % 13.5 L Monocytes % 5.6 Eosinophils % 3.1 Basophils % 0.5 Nucleated Red Blood Cells % 0.0 Neutrophils # 9.3 H Lymphocytes # 1.6 Monocytes # 0.7 Eosinophils # 0.4 Basophils # 0.1 Nucleated Red Blood Cells # 0.0 Sodium Level 139 Potassium Level 4.5 Chloride Level 104 Carbon Dioxide Level 24 Anion Gap 16 Blood Urea Nitrogen 8 Creatinine 0.76 Glucose Level 123 Calcium Level 8.8 Phosphorus Level 3.7 Magnesium Level 1.8 Total Bilirubin 1.0 Direct Bilirubin 0.00 Indirect Bilirubin 1.0 Aspartate Amino Transf (AST/SGOT) 16 Alanine Aminotransferase (ALT/SGPT) 27 Alkaline Phosphatase 62 Total Protein 7.1 Albumin 3.7 Globulin 3.40 H Albumin/Globulin Ratio 1.08 Amylase Level 235 H Lipase 761 H Medications Medications Current Medications Naloxone HCl (Narcan) 0.2 mg PRN PRN IV DECREASED REPIRATORY RATE; Start at 20:00 Oxycodone/ Acetaminophen (Percocet (5/ 325)) 1 tab Q4H PRN PO PAIN LEVEL 1-5 Last administered on 07/14/16 12:04; Admin Dose 1 TAB; Start 07/06/16 at 20:00 Oxycodone/ Acetaminophen (Percocet (5/ 325)) 2 tab Q4H PRN PO PAIN LEVEL 6-10; Start 07/06/16 at 20:00 Ondansetron HCl (Zofran Inj) 4 mg Q6H PRN IV NAUSEA AND/OR VOMITING Last administered on 07/15/16 22:45; Admin Dose 4 MG; Start 07/06/16 at 20:00 Diphenhydramine HCl (Benadryl) 25 mg Q6H PRN IV ITCHING Last administered on 06:18; Admin Dose 25 MG; Start 07/06/16 at 20:00 Hydralazine HCl (Apresoline) 10 mg Q6H PRN IV if SBP greater than 150 Last administered on 07/12/16 12:54; Admin Dose 10 MG; Start 07/08/16 at 20:30 Morphine Sulfate (morphine) 1 mg Q3H PRN IV for mild pain Last administered on 07/12/16 07:47; Admin Dose 1 MG; Start 07/08/16 at 20:30; Status Future hold Morphine Sulfate (morphine) 2 mg Q3H PRN IV for moderate to severe pain Last administered on 07/16/16 18:15; Admin Dose 2 MG; Start 07/08/16 at 20:30; Status Future hold Atenolol 25 mg 25 mg DAILY PO Last administered on 07/18/16 08:27; Admin Dose 25 MG; Start 07/12/16 at 10:00 Potassium Chloride/Dextrose/ Sod Cl (D5-1/2ns + KCl 20 Meq) 1,000 ml @ 120 mls/ hr Q8H20M IV Last administered on 07/19/16 04:57; Admin Dose 120 MLS/HR; Start 07/16/16 at 18:00 Pantoprazole (Protonix Iv) 40 mg DAILY@06 IV Last administered on 07/19/16 04: 57; Admin Dose 40 MG; Start 07/19/16 at 06:00 Levothyroxine Sodium (Synthroid Iv) 37.5 mcg DAILY@06 IV Last administered on 04:58; Admin Dose 37.5 MCG; Start 07/18/16 at 12:00 MARY CHAVEZ Jul 19, 2016 11:19
--- NOTE | 2016-07-19 15:30 | RADRPT ---
PROCEDURE: Small bowel follow-through. CLINICAL INDICATION: Abdomen pain. TECHNIQUE: Water-soluble contrast was administered orally and several spot and overhead radiograph s of the abdomen were obtained. COMPARISON: CT scan of the abdomen and pelvis dated 07/16/2016. FINDINGS: On the preliminary radiograph, there are vertical midline skin erick. A surgical drain is present in the pelvis. There are mild degenerative changes of the spine. There is no small bowel displacement or mass. The small bowel folds are normal. There is mildly dilated small bowel in the midabdomen. However, there is no evidence of obstruction with contrast in the colon and 2 hours and throughout the colon and rectosigmoid and 4 hours. IMPRESSION: 1. Recent surgery. 2. Mild degenerative changes of the spine. 3. Mildly dilated small bowel in the midabdomen. 4. No evidence of obstruction. RPTAT: QQ .Brenton Carmen MD, MD Date Time Electronically viewed and signed by .Brenton Carmen MD, on 07/19/2016 15:30 .R/
--- NOTE | 2016-07-19 15:32 | RADRPT ---
PROCEDURE: Upper GI series. CLINICAL INDICATION: Abdomen pain. TECHNIQUE: Water-soluble contrast was administered orally and several spot and overhead radiograph s were obtained. COMPARISON: No prior study is available for comparison. FINDINGS: There is no aspiration. Esophageal motility is normal. There is no esophageal mass, ulcer, or stricture. There is no gastroesophageal reflux. The stomach and duodenum are unremarkable with no evidence of mass or obstruction. IMPRESSION: 1. Normal upper GI series. RPTAT: QQ .Brenton Carmen MD, MD Date Time Electronically viewed and signed by .Brenton Carmen MD, on 07/19/2016 15:32 .R/
--- NOTE | 2016-07-19 16:33 | PN ---
Date/Time of Note Date/Time of Note DATE: 07/19/16 TIME: 16:33 Assessment/Plan VTE Prophylaxis VTE Prophylaxis Intervention: SCD's Lines/Catheters IV Catheter Type (from [facility]): Peripheral IV Urinary Cath still in place: No Assessment/Plan Chief Complaint/Hosp Course s/p exp lap reversal of colostomy with severe adhesions and difficult operation Problems: Assessment/Plan with pancreatitis slowly improving NPO IVF Subjective 24 Hr Interval Summary Free Text/Dictation slowly pancreas covering Exam/Review of Systems Vital Signs Vitals Vital Signs Date Time Temp Pulse Resp B/P Pulse Ox O2 Delivery O2 Flow Rate FiO2 07/19/16 07:26 98.3 79 18 102/62 97 Intake and Output 07/18/16 07/18/16 07/19/16 15:00 23:00 07:00 Intake Total 1000 ml 600 ml 1440 ml Output Total 300 ml 500 ml Balance 1000 ml 300 ml 940 ml Exam c/d/i Results Result Diagram: 07/19/16 0424 07/19/16 0424 Results 24 hrs Laboratory Tests Test 07/19/16 04:24 White Blood Count 12.1 H Red Blood Count 4.03 L Hemoglobin 12.3 L Hematocrit 35.4 L Mean Corpuscular Volume 87.8 Mean Corpuscular Hemoglobin 30.5 Mean Corpuscular Hemoglobin Concent 34.7 Red Cell Distribution Width 12.6 Platelet Count 480 H Mean Platelet Volume 9.9 Neutrophils % 76.6 Lymphocytes % 13.5 L Monocytes % 5.6 Eosinophils % 3.1 Basophils % 0.5 Nucleated Red Blood Cells % 0.0 Neutrophils # 9.3 H Lymphocytes # 1.6 Monocytes # 0.7 Eosinophils # 0.4 Basophils # 0.1 Nucleated Red Blood Cells # 0.0 Sodium Level 139 Potassium Level 4.5 Chloride Level 104 Carbon Dioxide Level 24 Anion Gap 16 Blood Urea Nitrogen 8 Creatinine 0.76 Glucose Level 123 Calcium Level 8.8 Phosphorus Level 3.7 Magnesium Level 1.8 Total Bilirubin 1.0 Direct Bilirubin 0.00 Indirect Bilirubin 1.0 Aspartate Amino Transf (AST/SGOT) 16 Alanine Aminotransferase (ALT/SGPT) 27 Alkaline Phosphatase 62 Total Protein 7.1 Albumin 3.7 Globulin 3.40 H Albumin/Globulin Ratio 1.08 Amylase Level 235 H Lipase 761 H Medications Medications Current Medications Naloxone HCl (Narcan) 0.2 mg PRN PRN IV DECREASED REPIRATORY RATE; Start 4/5/ 17 at 20:00 Oxycodone/ Acetaminophen (Percocet (5/ 325)) 1 tab Q4H PRN PO PAIN LEVEL 1-5 Last administered on 07/14/16 12:04; Admin Dose 1 TAB; Start 07/06/16 at 20:00 Oxycodone/ Acetaminophen (Percocet (5/ 325)) 2 tab Q4H PRN PO PAIN LEVEL 6-10; Start 07/06/16 at 20:00 Ondansetron HCl (Zofran Inj) 4 mg Q6H PRN IV NAUSEA AND/OR VOMITING Last administered on 07/15/16 22:45; Admin Dose 4 MG; Start 07/06/16 at 20:00 Diphenhydramine HCl (Benadryl) 25 mg Q6H PRN IV ITCHING Last administered on 06:18; Admin Dose 25 MG; Start 07/06/16 at 20:00 Hydralazine HCl (Apresoline) 10 mg Q6H PRN IV if SBP greater than 150 Last administered on 07/12/16 12:54; Admin Dose 10 MG; Start 07/08/16 at 20:30 Morphine Sulfate (morphine) 1 mg Q3H PRN IV for mild pain Last administered on 07/12/16 07:47; Admin Dose 1 MG; Start 07/08/16 at 20:30; Status Future hold Morphine Sulfate (morphine) 2 mg Q3H PRN IV for moderate to severe pain Last administered on 07/16/16 18:15; Admin Dose 2 MG; Start 07/08/16 at 20:30; Status Future hold Atenolol 25 mg 25 mg DAILY PO Last administered on 07/18/16 08:27; Admin Dose 25 MG; Start 07/12/16 at 10:00 Potassium Chloride/Dextrose/ Sod Cl (D5-1/2ns + KCl 20 Meq) 1,000 ml @ 120 mls/ hr Q8H20M IV Last administered on 07/19/16 04:57; Admin Dose 120 MLS/HR; Start 07/16/16 at 18:00 Pantoprazole (Protonix Iv) 40 mg DAILY@06 IV Last administered on 07/19/16 04: 57; Admin Dose 40 MG; Start 07/19/16 at 06:00 Levothyroxine Sodium (Synthroid Iv) 37.5 mcg DAILY@06 IV Last administered on t 04:58; Admin Dose 37.5 MCG; Start 07/18/16 at 12:00 Lorenzo ALEGRE Jul 19, 2016 16:33
[2016-07-19 19:42] VITALS: BP 134/85; RESP 18
[2016-07-20] MEDS: D5W-0.45 NACL + KCL 20 MEQ 1,000 ML IV SCH ×3 (04:55→23:40)
[2016-07-20] MEDS: LEVOTHYROXINE 100 MCG VIAL IV SCH (05:00)
[2016-07-20] MEDS: PANTOPRAZOLE 40 MG INJ IV SCH ×2 (05:00→09:43)
[2016-07-20 05:23] LABS: ADD SCAN DIFF NO
[2016-07-20 05:33] LABS: BASOPHIL # 0.1 10^3/ul (0.0-0.1); BASOPHILS % 0.5 % (0.0-2.0); EOSINOPHILS # 0.3 10^3/ul (0.0-0.5); EOSINOPHILS % 1.9 % (0.0-7.0); HEMATOCRIT 42.3 % (42.0-52.0); HEMOGLOBIN 14.1 g/dl (14.0-18.0); LYMPHOCYTES # 2.9 10^3/ul (0.8-2.9); LYMPHOCYTES % 19.2 % (15.0-51.0); MEAN CORPUSCULAR HEMOGLOBIN 29.4 pg (29.0-33.0); MEAN CORPUSCULAR HGB CONC 33.3 g/dl (32.0-37.0); MEAN CORPUSCULAR VOLUME 88.3 fl (82.0-101.0); MEAN PLATELET VOLUME 10.3 fl (7.4-10.4); MONOCYTE # 1.3 10^3/ul (0.3-0.9); MONOCYTES % 8.8 % (0.0-11.0); NEUTROPHIL # 10.4 10^3/ul (1.6-7.5); NEUTROPHILS % 68.7 % (39.0-77.0); PLATELET COUNT 566 10^3/UL (140-415); RED BLOOD COUNT 4.79 10^6/ul (4.70-6.10); RED CELL DISTRIBUTION WIDTH 13.1 % (11.5-14.5); WHITE BLOOD COUNT 15.2 10^3/ul (4.8-10.8)
[2016-07-20 05:41] LABS: MAGNESIUM 2.1 mg/dl (1.7-2.5); PHOSPHORUS 4.9 mg/dl (2.5-4.9)
[2016-07-20 05:44] LABS: ALBUMIN 4.4 g/dl (3.3-4.9); ALBUMIN/GLOBULIN RATIO 1.02; BILIRUBIN,INDIRECT 0.8 mg/dl (0-1.1); BILIRUBIN,TOTAL 0.8 mg/dl (0.2-1.3); CALCIUM 9.6 mg/dl (8.4-10.2); CREATININE 0.78 mg/dl (0.61-1.24); POTASSIUM 4.2 mmol/L (3.5-5.1); TOTAL PROTEIN 8.7 g/dl (6.1-8.1)
[2016-07-20 07:52] VITALS: BP 122/80; RESP 19
[2016-07-20] MEDS: ATENOLOL 25 MG TAB PO SCH (09:00)
[2016-07-20 09:15] LABS: AMYLASE 260 U/L (11-123)
--- NOTE | 2016-07-20 09:54 | PN ---
Date/Time of Note Date/Time of Note DATE: 07/20/16 TIME: 09:51 Assessment/Plan VTE Prophylaxis VTE Prophylaxis Intervention: SCD's Lines/Catheters IV [facility]ter Type (from [facility]): Peripheral IV Urinary Cath still in place: No Assessment/Plan Assessment/Plan 55 year-old man 1. POD# 14 s/p laparoscopic reversal of previous colostomy. Now with elevated lipase, MRCP negative for even pancreatic inflammation. SBFT negative for obstruction, 2BM overnight Lipase trending down slowly and pancreatitis or unclear etiology resolving clinically NPO, on IVF still. Follow up with General surgery 2. Acute Pancreatitis: unclear etiology, CT non conclusive, MRCP and FLP pending 3. Hypertension: well-controlled, back on NPO status Continue hydralazine prn. 4. Gastroesophageal reflux disease Protonix IV 5. Hyperlipidemia: holding statins for now. 6. Hypothyroidism: IV Synthroid Prophylaxis: SCDs for DVT prophylaxis, Protonix for GI prophylaxis Disposition: NPO for now and monitor pancreatic enzymes. ? Clears today since patient with no abdo pain and MRCP with no signs of active pancreatic inflammation Subjective 24 Hr Interval Summary Free Text/Dictation Patient remains stable, negative MRCP Still NPO and on IVF BM x 3 liquid today No abdo pain and no nausea or vomiting Exam/Review of Systems Vital Signs Vitals Vital Signs Date Time Temp Pulse Resp B/P Pulse Ox O2 Delivery O2 Flow Rate FiO2 07/20/16 07:52 98.0 95 19 122/80 98 Intake and Output 07/19/16 07/19/16 07/20/16 15:00 23:00 07:00 Intake Total 1300 ml 1000 ml Output Total 805 ml 5 ml Balance 495 ml 995 ml Exam Constitutional: alert, oriented, well developed Respiratory: clear to auscultation, normal air movement Cardiovascular: nl pulses, regular rate and rhythm Gastrointestinal: non-tender, soft Musculoskeletal: nl extremities to inspection, other (no edema, clubbing or cyanosis ) Extremities: normal pulses 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, nl mental status, nl speech, nl strength Results Result Diagram: 07/20/16 0448 07/20/168 Results 24 hrs Laboratory Tests Test 07/20/16 04:48 White Blood Count 15.2 #H Red Blood Count 4.79 Hemoglobin 14.1 Hematocrit 42.3 Mean Corpuscular Volume 88.3 Mean Corpuscular Hemoglobin 29.4 Mean Corpuscular Hemoglobin Concent 33.3 Red Cell Distribution Width 13.1 Platelet Count 566 H Mean Platelet Volume 10.3 Neutrophils % 68.7 Lymphocytes % 19.2 Monocytes % 8.8 Eosinophils % 1.9 Basophils % 0.5 Nucleated Red Blood Cells % 0.0 Neutrophils # 10.4 H Lymphocytes # 2.9 Monocytes # 1.3 H Eosinophils # 0.3 Basophils # 0.1 Nucleated Red Blood Cells # 0.0 Sodium Level 142 Potassium Level 4.2 Chloride Level 109 Carbon Dioxide Level 19 L Anion Gap 18 H Blood Urea Nitrogen 12 Creatinine 0.78 Glucose Level 134 Calcium Level 9.6 Phosphorus Level 4.9 Magnesium Level 2.1 Total Bilirubin 0.8 Direct Bilirubin 0.00 Indirect Bilirubin 0.8 Aspartate Amino Transf (AST/SGOT) 24 Alanine Aminotransferase (ALT/SGPT) 31 Alkaline Phosphatase 106 # Total Protein 8.7 H Albumin 4.4 Globulin 4.30 H Albumin/Globulin Ratio 1.02 Amylase Level 260 H Lipase 902 H Medications Medications Current Medications Naloxone HCl (Narcan) 0.2 mg PRN PRN IV DECREASED REPIRATORY RATE; Start at 20:00 Oxycodone/ Acetaminophen (Percocet (5/ 325)) 1 tab Q4H PRN PO PAIN LEVEL 1-5 Last administered on 07/14/16 12:04; Admin Dose 1 TAB; Start 07/06/16 at 20:00 Oxycodone/ Acetaminophen (Percocet (5/ 325)) 2 tab Q4H PRN PO PAIN LEVEL 6-10; Start 07/06/16 at 20:00 Ondansetron HCl (Zofran Inj) 4 mg Q6H PRN IV NAUSEA AND/OR VOMITING Last administered on 07/15/16 22:45; Admin Dose 4 MG; Start 07/06/16 at 20:00 Diphenhydramine HCl (Benadryl) 25 mg Q6H PRN IV ITCHING Last administered on 06:18; Admin Dose 25 MG; Start 07/06/16 at 20:00 Hydralazine HCl (Apresoline) 10 mg Q6H PRN IV if SBP greater than 150 Last administered on 07/12/16 12:54; Admin Dose 10 MG; Start 07/08/16 at 20:30 Morphine Sulfate (morphine) 1 mg Q3H PRN IV for mild pain Last administered on 07/12/16 07:47; Admin Dose 1 MG; Start 07/08/16 at 20:30; Status Future hold Morphine Sulfate (morphine) 2 mg Q3H PRN IV for moderate to severe pain Last administered on 07/16/16 18:15; Admin Dose 2 MG; Start 07/08/16 at 20:30; Status Future hold Atenolol 25 mg 25 mg DAILY PO Last administered on 07/18/16 08:27; Admin Dose 25 MG; Start 07/12/16 at 10:00 Potassium Chloride/Dextrose/ Sod Cl (D5-1/2ns + KCl 20 Meq) 1,000 ml @ 120 mls/ hr Q8H20M IV Last administered on 07/20/16 04:55; Admin Dose 120 MLS/HR; Start 07/16/16 at 18:00 Pantoprazole (Protonix Iv) 40 mg DAILY@06 IV Last administered on 07/20/16 05: 00; Admin Dose 40 MG; Start 07/19/16 at 06:00 Levothyroxine Sodium (Synthroid Iv) 37.5 mcg DAILY@06 IV Last administered on 05:00; Admin Dose 37.5 MCG; Start 07/18/16 at 12:00 MARY CHAVEZ Jul 20, 2016 09:54
--- NOTE | 2016-07-20 15:07 | PN ---
Date/Time of Note Date/Time of Note DATE: 07/20/16 TIME: 15:06 Assessment/Plan VTE Prophylaxis VTE Prophylaxis Intervention: SCD's Lines/Catheters IV Catheter Type (from [facility]): Peripheral IV Urinary Cath still in place: No Assessment/Plan Chief Complaint/Hosp Course s/p exp lap reversal of colostomy with severe adhesions and difficult operation Problems: Assessment/Plan clears tomorrow Subjective 24 Hr Interval Summary Free Text/Dictation slight increase in lipase, mild abd pain Exam/Review of Systems Vital Signs Vitals Vital Signs Date Time Temp Pulse Resp B/P Pulse Ox O2 Delivery O2 Flow Rate FiO2 07/20/16 07:52 98.0 95 19 122/80 98 Intake and Output 07/19/16 07/19/16 07/20/16 15:00 23:00 07:00 Intake Total 1300 ml 1000 ml Output Total 805 ml 5 ml Balance 495 ml 995 ml Exam mild to mod tenderness, no peritoneal signs, wounds clean Results Result Diagram: 07/20/16 0448 07/20/16 0448 Results 24 hrs Laboratory Tests Test 07/20/16 04:48 White Blood Count 15.2 #H Red Blood Count 4.79 Hemoglobin 14.1 Hematocrit 42.3 Mean Corpuscular Volume 88.3 Mean Corpuscular Hemoglobin 29.4 Mean Corpuscular Hemoglobin Concent 33.3 Red Cell Distribution Width 13.1 Platelet Count 566 H Mean Platelet Volume 10.3 Neutrophils % 68.7 Lymphocytes % 19.2 Monocytes % 8.8 Eosinophils % 1.9 Basophils % 0.5 Nucleated Red Blood Cells % 0.0 Neutrophils # 10.4 H Lymphocytes # 2.9 Monocytes # 1.3 H Eosinophils # 0.3 Basophils # 0.1 Nucleated Red Blood Cells # 0.0 Sodium Level 142 Potassium Level 4.2 Chloride Level 109 Carbon Dioxide Level 19 L Anion Gap 18 H Blood Urea Nitrogen 12 Creatinine 0.78 Glucose Level 134 Calcium Level 9.6 Phosphorus Level 4.9 Magnesium Level 2.1 Total Bilirubin 0.8 Direct Bilirubin 0.00 Indirect Bilirubin 0.8 Aspartate Amino Transf (AST/SGOT) 24 Alanine Aminotransferase (ALT/SGPT) 31 Alkaline Phosphatase 106 # Total Protein 8.7 H Albumin 4.4 Globulin 4.30 H Albumin/Globulin Ratio 1.02 Amylase Level 260 H Lipase 902 H Medications Medications Current Medications Naloxone HCl (Narcan) 0.2 mg PRN PRN IV DECREASED REPIRATORY RATE; Start at 20:00 Oxycodone/ Acetaminophen (Percocet (5/ 325)) 1 tab Q4H PRN PO PAIN LEVEL 1-5 Last administered on 07/14/16 12:04; Admin Dose 1 TAB; Start 07/06/16 at 20:00 Oxycodone/ Acetaminophen (Percocet (5/ 325)) 2 tab Q4H PRN PO PAIN LEVEL 6-10; Start 07/06/16 at 20:00 Ondansetron HCl (Zofran Inj) 4 mg Q6H PRN IV NAUSEA AND/OR VOMITING Last administered on 07/15/16 22:45; Admin Dose 4 MG; Start 07/06/16 at 20:00 Diphenhydramine HCl (Benadryl) 25 mg Q6H PRN IV ITCHING Last administered on 06:18; Admin Dose 25 MG; Start 07/06/16 at 20:00 Hydralazine HCl (Apresoline) 10 mg Q6H PRN IV if SBP greater than 150 Last administered on 07/12/16 12:54; Admin Dose 10 MG; Start 07/08/16 at 20:30 Morphine Sulfate (morphine) 1 mg Q3H PRN IV for mild pain Last administered on 07/12/16 07:47; Admin Dose 1 MG; Start 07/08/16 at 20:30; Status Future hold Morphine Sulfate (morphine) 2 mg Q3H PRN IV for moderate to severe pain Last administered on 07/16/16 18:15; Admin Dose 2 MG; Start 07/08/16 at 20:30; Status Future hold Atenolol 25 mg 25 mg DAILY PO Last administered on 07/18/16 08:27; Admin Dose 25 MG; Start 07/12/16 at 10:00 Potassium Chloride/Dextrose/ Sod Cl (D5-1/2ns + KCl 20 Meq) 1,000 ml @ 120 mls/ hr Q8H20M IV Last administered on 07/20/16 13:50; Admin Dose 120 MLS/HR; Start 07/16/16 at 18:00 Pantoprazole (Protonix Iv) 40 mg DAILY@06 IV Last administered on 07/20/16 05: 00; Admin Dose 40 MG; Start 07/19/16 at 06:00 Levothyroxine Sodium (Synthroid Iv) 37.5 mcg DAILY@06 IV Last administered on t 05:00; Admin Dose 37.5 MCG; Start 07/18/16 at 12:00 Lorenzo ALEGRE Jul 20, 2016 15:07
[2016-07-20 20:49] VITALS: BP 121/81; RESP 20
[2016-07-21 05:12] LABS: ADD SCAN DIFF NO
[2016-07-21 05:21] LABS: BASOPHIL # 0.1 10^3/ul (0.0-0.1); BASOPHILS % 0.7 % (0.0-2.0); EOSINOPHILS # 0.3 10^3/ul (0.0-0.5); EOSINOPHILS % 2.8 % (0.0-7.0); HEMATOCRIT 34.4 % (42.0-52.0); HEMOGLOBIN 11.7 g/dl (14.0-18.0); LYMPHOCYTES # 2.5 10^3/ul (0.8-2.9); LYMPHOCYTES % 21.3 % (15.0-51.0); MEAN CORPUSCULAR VOLUME 88.2 fl (82.0-101.0); MEAN PLATELET VOLUME 10.3 fl (7.4-10.4); MONOCYTES % 8.4 % (0.0-11.0); NEUTROPHIL # 7.8 10^3/ul (1.6-7.5); NEUTROPHILS % 66.4 % (39.0-77.0); PLATELET COUNT 476 10^3/UL (140-415); RED CELL DISTRIBUTION WIDTH 12.6 % (11.5-14.5); WHITE BLOOD COUNT 11.8 10^3/ul (4.8-10.8)
[2016-07-21] MEDS: LEVOTHYROXINE 100 MCG VIAL IV SCH (05:30)
[2016-07-21 05:35] LABS: ALBUMIN 3.5 g/dl (3.3-4.9); ALBUMIN/GLOBULIN RATIO 1.16; BILIRUBIN,INDIRECT 1.2 mg/dl (0-1.1); BILIRUBIN,TOTAL 1.2 mg/dl (0.2-1.3); CREATININE 0.64 mg/dl (0.61-1.24); POTASSIUM 4.5 mmol/L (3.5-5.1); TOTAL PROTEIN 6.5 g/dl (6.1-8.1)
[2016-07-21] MEDS: PANTOPRAZOLE 40 MG INJ IV SCH (05:35)
[2016-07-21 05:37] LABS: MAGNESIUM 1.8 mg/dl (1.7-2.5); PHOSPHORUS 3.6 mg/dl (2.5-4.9)
[2016-07-21 08:20] VITALS: BP 110/71; RESP 18
[2016-07-21] MEDS: D5W-0.45 NACL + KCL 20 MEQ 1,000 ML IV SCH ×3 (08:50→17:15)
[2016-07-21] MEDS: ATENOLOL 25 MG TAB PO SCH (08:51)
--- NOTE | 2016-07-21 09:59 | PN ---
Date/Time of Note Date/Time of Note DATE: 07/21/16 TIME: 09:55 Assessment/Plan VTE Prophylaxis VTE Prophylaxis Intervention: SCD's Lines/Catheters IV C[facility]ter Type (from [facility]): Peripheral IV Urinary Cath still in place: No Assessment/Plan Assessment/Plan 55 year-old man 1. POD# 15 s/p laparoscopic reversal of previous colostomy. MRCP negative for even pancreatic inflammation. SBFT negative for obstruction, BMs Lipase trending down slowly and pancreatitis of unclear etiology resolving clinically Starting clears today and monitor clinically. Will plan to d/c IVF once po intake better Follow up with General surgery 2. Acute Pancreatitis: unclear etiology, CT non conclusive, MRCP and FLP wnl. Improving slowly. Clears today 3. Hypertension: well-controlled. Continue hydralazine prn. 4. Gastroesophageal reflux disease. Continue Protonix IV 5. Hyperlipidemia: holding statins for now. 6. Hypothyroidism: Continue IV Synthroid for now Prophylaxis: SCDs for DVT prophylaxis, Protonix for GI prophylaxis Disposition: Clears today and monitor clinically. Subjective 24 Hr Interval Summary Free Text/Dictation Patient doing well today, pancreatic enzymes trending down Starting clears today Exam/Review of Systems Vital Signs Vitals Vital Signs Date Time Temp Pulse Resp B/P Pulse Ox O2 Delivery O2 Flow Rate FiO2 07/21/16 08:20 97.9 78 18 110/71 98 Intake and Output 07/20/16 07/20/16 07/21/16 15:00 23:00 07:00 Intake Total 1000 ml 480 ml 1120 ml Output Total 0 ml 405 ml Balance 1000 ml 480 ml 715 ml Exam Constitutional: alert, oriented, well developed Respiratory: clear to auscultation, normal air movement Cardiovascular: nl pulses, regular rate and rhythm Gastrointestinal: other (incision intact and ZAINAB drian still in place ), soft Musculoskeletal: nl extremities to inspection, nl gait and stance Extremities: normal 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, nl mental status, nl speech, nl strength Results Result Diagram: 07/21/1641907/21/16419 Results 24 hrs Laboratory Tests Test 07/21/16 04:20 White Blood Count 11.8 #H Red Blood Count 3.90 L Hemoglobin 11.7 L Hematocrit 34.4 L Mean Corpuscular Volume 88.2 Mean Corpuscular Hemoglobin 30.0 Mean Corpuscular Hemoglobin Concent 34.0 Red Cell Distribution Width 12.6 Platelet Count 476 H Mean Platelet Volume 10.3 Neutrophils % 66.4 Lymphocytes % 21.3 Monocytes % 8.4 Eosinophils % 2.8 Basophils % 0.7 Nucleated Red Blood Cells % 0.0 Neutrophils # 7.8 H Lymphocytes # 2.5 Monocytes # 1.0 H Eosinophils # 0.3 Basophils # 0.1 Nucleated Red Blood Cells # 0.0 Sodium Level 137 Potassium Level 4.5 Chloride Level 109 Carbon Dioxide Level 20 L Anion Gap 13 Blood Urea Nitrogen 11 Creatinine 0.64 Glucose Level 114 Calcium Level 9.0 Phosphorus Level 3.6 Magnesium Level 1.8 Total Bilirubin 1.2 Direct Bilirubin 0.00 Indirect Bilirubin 1.2 H Aspartate Amino Transf (AST/SGOT) 19 Alanine Aminotransferase (ALT/SGPT) 28 Alkaline Phosphatase 75 Total Protein 6.5 # Albumin 3.5 Globulin 3.00 Albumin/Globulin Ratio 1.16 Amylase Level 167 H Lipase 712 H Medications Medications Current Medications Naloxone HCl (Narcan) 0.2 mg PRN PRN IV DECREASED REPIRATORY RATE; Start at 20:00 Oxycodone/ Acetaminophen (Percocet (5/ 325)) 1 tab Q4H PRN PO PAIN LEVEL 1-5 Last administered on 07/14/16 12:04; Admin Dose 1 TAB; Start 07/06/16 at 20:00 Oxycodone/ Acetaminophen (Percocet (5/ 325)) 2 tab Q4H PRN PO PAIN LEVEL 6-10; Start 07/06/16 at 20:00 Ondansetron HCl (Zofran Inj) 4 mg Q6H PRN IV NAUSEA AND/OR VOMITING Last administered on 07/15/16 22:45; Admin Dose 4 MG; Start 07/06/16 at 20:00 Diphenhydramine HCl (Benadryl) 25 mg Q6H PRN IV ITCHING Last administered on 06:18; Admin Dose 25 MG; Start 07/06/16 at 20:00 Hydralazine HCl (Apresoline) 10 mg Q6H PRN IV if SBP greater than 150 Last administered on 07/12/16 12:54; Admin Dose 10 MG; Start 07/08/16 at 20:30 Morphine Sulfate (morphine) 1 mg Q3H PRN IV for mild pain Last administered on 07/12/16 07:47; Admin Dose 1 MG; Start 07/08/16 at 20:30; Status Future hold Morphine Sulfate (morphine) 2 mg Q3H PRN IV for moderate to severe pain Last administered on 07/16/16 18:15; Admin Dose 2 MG; Start 07/08/16 at 20:30; Status Future hold Atenolol 25 mg 25 mg DAILY PO Last administered on 07/18/16 08:27; Admin Dose 25 MG; Start 07/12/16 at 10:00 Potassium Chloride/Dextrose/ Sod Cl (D5-1/2ns + KCl 20 Meq) 1,000 ml @ 120 mls/ hr Q8H20M IV Last administered on 07/21/16 08:50; Admin Dose 120 MLS/HR; Start 07/16/16 at 18:00 Levothyroxine Sodium (Synthroid Iv) 37.5 mcg DAILY@06 IV Last administered on 05:30; Admin Dose 37.5 MCG; Start 07/18/16 at 12:00 Pantoprazole (Protonix Iv) 40 mg DAILY@06 IV Last administered on 07/21/16 05: 35; Admin Dose 40 MG; Start 07/21/16 at 05:30 MARY CHAVEZ Jul 21, 2016 09:59
[2016-07-21 20:42] VITALS: BP 123/73; RESP 20
[2016-07-22 05:24] LABS: ADD SCAN DIFF NO
[2016-07-22] MEDS: LEVOTHYROXINE 100 MCG VIAL IV SCH (05:26)
[2016-07-22] MEDS: PANTOPRAZOLE 40 MG INJ IV SCH (05:26)
[2016-07-22 05:39] LABS: BASOPHIL # 0.1 10^3/ul (0.0-0.1); BASOPHILS % 0.5 % (0.0-2.0); EOSINOPHILS # 0.2 10^3/ul (0.0-0.5); EOSINOPHILS % 1.3 % (0.0-7.0); HEMATOCRIT 34.7 % (42.0-52.0); HEMOGLOBIN 11.9 g/dl (14.0-18.0); LYMPHOCYTES % 14.5 % (15.0-51.0); MEAN CORPUSCULAR HEMOGLOBIN 29.8 pg (29.0-33.0); MEAN CORPUSCULAR HGB CONC 34.3 g/dl (32.0-37.0); MEAN PLATELET VOLUME 10.7 fl (7.4-10.4); MONOCYTE # 0.8 10^3/ul (0.3-0.9); MONOCYTES % 5.7 % (0.0-11.0); NEUTROPHIL # 10.5 10^3/ul (1.6-7.5); NEUTROPHILS % 77.5 % (39.0-77.0); PLATELET COUNT 495 10^3/UL (140-415); RED BLOOD COUNT 3.99 10^6/ul (4.70-6.10); RED CELL DISTRIBUTION WIDTH 12.5 % (11.5-14.5); WHITE BLOOD COUNT 13.5 10^3/ul (4.8-10.8)
[2016-07-22 05:52] LABS: ALBUMIN 3.7 g/dl (3.3-4.9)
[2016-07-22 05:53] LABS: POTASSIUM 3.6 mmol/L (3.5-5.1)
[2016-07-22 05:55] LABS: ALBUMIN/GLOBULIN RATIO 0.97; BILIRUBIN,INDIRECT 1.6 mg/dl (0-1.1); BILIRUBIN,TOTAL 1.6 mg/dl (0.2-1.3); CREATININE 0.63 mg/dl (0.61-1.24); TOTAL PROTEIN 7.5 g/dl (6.1-8.1)
[2016-07-22 05:56] LABS: CALCIUM 8.8 mg/dl (8.4-10.2)
[2016-07-22 08:03] VITALS: BP 126/76; RESP 18
[2016-07-22] MEDS: ATENOLOL 25 MG TAB PO SCH (08:59)
--- NOTE | 2016-07-22 11:23 | PN ---
Date/Time of Note Date/Time of Note DATE: 07/22/16 TIME: 11:22 Assessment/Plan VTE Prophylaxis VTE Prophylaxis Intervention: SCD's Lines/Catheters IV Catheter Type (from Nrs): Peripheral IV Urinary Cath still in place: No Assessment/Plan Chief Complaint/Hosp Course s/p exp lap reversal of colostomy with severe adhesions and difficult operation Problems: Assessment/Plan gi soft tomorrow possible dc monday Subjective 24 Hr Interval Summary Free Text/Dictation doing well, no nause no vomiting tolerating full liquids Exam/Review of Systems Vital Signs Vitals Vital Signs Date Time Temp Pulse Resp B/P Pulse Ox O2 Delivery O2 Flow Rate FiO2 07/22/16 08:03 98.2 63 18 126/76 97 Intake and Output 07/21/16 07/21/16 07/22/16 15:00 23:00 07:00 Intake Total 1760 ml 1030 ml Output Total 0 ml 5 ml Balance 1760 ml 1025 ml Exam c/d/i Results Result Diagram: 07/22/16 0445 07/22/16 0445 Results 24 hrs Laboratory Tests Test 07/22/16 04:45 07/22/16 04:46 White Blood Count 13.5 H Red Blood Count 3.99 L Hemoglobin 11.9 L Hematocrit 34.7 L Mean Corpuscular Volume 87.0 Mean Corpuscular Hemoglobin 29.8 Mean Corpuscular Hemoglobin Concent 34.3 Red Cell Distribution Width 12.5 Platelet Count 495 H Mean Platelet Volume 10.7 H Neutrophils % 77.5 H Lymphocytes % 14.5 L Monocytes % 5.7 Eosinophils % 1.3 Basophils % 0.5 Nucleated Red Blood Cells % 0.0 Neutrophils # 10.5 H Lymphocytes # 2.0 Monocytes # 0.8 Eosinophils # 0.2 Basophils # 0.1 Nucleated Red Blood Cells # 0.0 Sodium Level 138 Potassium Level 3.6 Chloride Level 103 Carbon Dioxide Level 21 Anion Gap 18 H Blood Urea Nitrogen 5 L Creatinine 0.63 Glucose Level 119 Calcium Level 8.8 Total Bilirubin 1.6 H Direct Bilirubin 0.00 Indirect Bilirubin 1.6 H Aspartate Amino Transf (AST/SGOT) 79 #H Alanine Aminotransferase (ALT/SGPT) 41 Alkaline Phosphatase 144 #H Total Protein 7.5 # Albumin 3.7 Globulin 3.80 H Albumin/Globulin Ratio 0.97 Magnesium Level 1.7 Medications Medications Current Medications Naloxone HCl (Narcan) 0.2 mg PRN PRN IV DECREASED REPIRATORY RATE; Start at 20:00 Oxycodone/ Acetaminophen (Percocet (5/ 325)) 1 tab Q4H PRN PO PAIN LEVEL 1-5 Last administered on 07/14/16 12:04; Admin Dose 1 TAB; Start 07/06/16 at 20:00 Oxycodone/ Acetaminophen (Percocet (5/ 325)) 2 tab Q4H PRN PO PAIN LEVEL 6-10; Start 07/06/16 at 20:00 Ondansetron HCl (Zofran Inj) 4 mg Q6H PRN IV NAUSEA AND/OR VOMITING Last administered on 07/15/16 22:45; Admin Dose 4 MG; Start 07/06/16 at 20:00 Diphenhydramine HCl (Benadryl) 25 mg Q6H PRN IV ITCHING Last administered on 06:18; Admin Dose 25 MG; Start 07/06/16 at 20:00 Hydralazine HCl (Apresoline) 10 mg Q6H PRN IV if SBP greater than 150 Last administered on 07/12/16 12:54; Admin Dose 10 MG; Start 07/08/16 at 20:30 Morphine Sulfate (morphine) 1 mg Q3H PRN IV for mild pain Last administered on 07/12/16 07:47; Admin Dose 1 MG; Start 07/08/16 at 20:30; Status Future hold Morphine Sulfate (morphine) 2 mg Q3H PRN IV for moderate to severe pain Last administered on 07/16/16 18:15; Admin Dose 2 MG; Start 07/08/16 at 20:30; Status Future hold Atenolol (Tenormin) 25 mg DAILY PO Last administered on 07/22/16 08:59; Admin Dose 25 MG; Start 07/12/16 at 10:00 Levothyroxine Sodium (Synthroid Iv) 37.5 mcg DAILY@06 IV Last administered on 05:26; Admin Dose 37.5 MCG; Start 07/18/16 at 12:00 Pantoprazole 40 mg 40 mg DAILY@06 IV Last administered on 07/22/16 05:26; Admin Dose 40 MG; Start 07/21/16 at 05:30 Potassium Chloride/Dextrose/ Sod Cl (D5-1/2ns + KCl 20 Meq) 1,000 ml @ 50 mls/ hr Q20H IV Last administered on 07/21/16t 17:15; Admin Dose 50 MLS/HR; Start at 17:00 Lorenzo ALEGRE Jul 22, 2016 11:23
--- NOTE | 2016-07-22 12:24 | PN ---
Date/Time of Note Date/Time of Note DATE: 07/22/16 TIME: 12:14 Assessment/Plan VTE Prophylaxis VTE Prophylaxis Intervention: SCD's Lines/Catheters IV [facility]ter Type (from [facility]): Peripheral IV Urinary Cath still in place: No Assessment/Plan Assessment/Plan 55 year-old man 1. POD# 16 s/p laparoscopic reversal of previous colostomy. MRCP negative for even pancreatic inflammation. SBFT negative for obstruction, BMs Lipase trending down slowly and pancreatitis of unclear etiology resolving clinically Advanced to full liquid, ZAINAB drain still in place Will plan to d/c IVF once po intake better Follow up with General surgery for d/c planning hopefully this weekend 2. Acute Pancreatitis: unclear etiology, CT non conclusive, MRCP and FLP wnl. Improving slowly. On Full liquid as of today. 3. Hypertension: well-controlled. Continue hydralazine prn. 4. Gastroesophageal reflux disease. Continue Protonix IV 5. Hyperlipidemia: holding statins for now. 6. Hypothyroidism: Continue IV Synthroid for now Prophylaxis: SCDs for DVT prophylaxis, Protonix for GI prophylaxis Disposition: Full liquid, f/u with General Surgery for hopefully d/c planning this weekend. Subjective 24 Hr Interval Summary Free Text/Dictation Patient remains stable and no complaints today On full liquid diet ZAINAB drain still in place Hopefully d/c plan this weekend Exam/Review of Systems Vital Signs Vitals Vital Signs Date Time Temp Pulse Resp B/P Pulse Ox O2 Delivery O2 Flow Rate FiO2 07/22/16 08:03 98.2 63 18 126/76 97 Intake and Output 07/21/16 07/21/16 07/22/16 15:00 23:00 07:00 Intake Total 1760 ml 1030 ml Output Total 0 ml 5 ml Balance 1760 ml 1025 ml Exam Constitutional: alert, oriented, well developed Respiratory: clear to auscultation, normal air movement Cardiovascular: nl pulses, regular rate and rhythm Gastrointestinal: non-tender, other (ZAINAB drain still in place and erick in place and c/d/i ), soft Musculoskeletal: nl extremities to inspection, other (no edema, clubbing or cyanosis ) Extremities: normal pulses Neurological: TANKAGE GRINDER II-XII intact, nl mental status, nl speech, nl strength Results Result Diagram: 07/22/16 0445 07/22/165 Results 24 hrs Laboratory Tests Test 07/22/16 04:45 07/22/16 04:46 White Blood Count 13.5 H Red Blood Count 3.99 L Hemoglobin 11.9 L Hematocrit 34.7 L Mean Corpuscular Volume 87.0 Mean Corpuscular Hemoglobin 29.8 Mean Corpuscular Hemoglobin Concent 34.3 Red Cell Distribution Width 12.5 Platelet Count 495 H Mean Platelet Volume 10.7 H Neutrophils % 77.5 H Lymphocytes % 14.5 L Monocytes % 5.7 Eosinophils % 1.3 Basophils % 0.5 Nucleated Red Blood Cells % 0.0 Neutrophils # 10.5 H Lymphocytes # 2.0 Monocytes # 0.8 Eosinophils # 0.2 Basophils # 0.1 Nucleated Red Blood Cells # 0.0 Sodium Level 138 Potassium Level 3.6 Chloride Level 103 Carbon Dioxide Level 21 Anion Gap 18 H Blood Urea Nitrogen 5 L Creatinine 0.63 Glucose Level 119 Calcium Level 8.8 Total Bilirubin 1.6 H Direct Bilirubin 0.00 Indirect Bilirubin 1.6 H Aspartate Amino Transf (AST/SGOT) 79 #H Alanine Aminotransferase (ALT/SGPT) 41 Alkaline Phosphatase 144 #H Total Protein 7.5 # Albumin 3.7 Globulin 3.80 H Albumin/Globulin Ratio 0.97 Magnesium Level 1.7 Medications Medications Current Medications Naloxone HCl (Narcan) 0.2 mg PRN PRN IV DECREASED REPIRATORY RATE; Start at 20:00 Oxycodone/ Acetaminophen (Percocet (5/ 325)) 1 tab Q4H PRN PO PAIN LEVEL 1-5 Last administered on 07/14/16 12:04; Admin Dose 1 TAB; Start 07/06/16 at 20:00 Oxycodone/ Acetaminophen (Percocet (5/ 325)) 2 tab Q4H PRN PO PAIN LEVEL 6-10; Start 07/06/16 at 20:00 Ondansetron HCl (Zofran Inj) 4 mg Q6H PRN IV NAUSEA AND/OR VOMITING Last administered on 07/15/16 22:45; Admin Dose 4 MG; Start 07/06/16 at 20:00 Diphenhydramine HCl (Benadryl) 25 mg Q6H PRN IV ITCHING Last administered on 06:18; Admin Dose 25 MG; Start 07/06/16 at 20:00 Hydralazine HCl (Apresoline) 10 mg Q6H PRN IV if SBP greater than 150 Last administered on 07/12/16 12:54; Admin Dose 10 MG; Start 07/08/16 at 20:30 Morphine Sulfate (morphine) 1 mg Q3H PRN IV for mild pain Last administered on 07/12/16 07:47; Admin Dose 1 MG; Start 07/08/16 at 20:30; Status Future hold Morphine Sulfate (morphine) 2 mg Q3H PRN IV for moderate to severe pain Last administered on 07/16/16 18:15; Admin Dose 2 MG; Start 07/08/16 at 20:30; Status Future hold Atenolol (Tenormin) 25 mg DAILY PO Last administered on 07/22/16 08:59; Admin Dose 25 MG; Start 07/12/16 at 10:00 Levothyroxine Sodium (Synthroid Iv) 37.5 mcg DAILY@06 IV Last administered on 05:26; Admin Dose 37.5 MCG; Start 07/18/16 at 12:00 Pantoprazole 40 mg 40 mg DAILY@06 IV Last administered on 07/22/16 05:26; Admin Dose 40 MG; Start 07/21/16 at 05:30 Potassium Chloride/Dextrose/ Sod Cl (D5-1/2ns + KCl 20 Meq) 1,000 ml @ 50 mls/ hr Q20H IV Last administered on 07/21/16 17:15; Admin Dose 50 MLS/HR; Start at 17:00 MARY CHAVEZ Jul 22, 2016 12:24
[2016-07-22] MEDS: D5W-0.45 NACL + KCL 20 MEQ 1,000 ML IV SCH (13:12)
[2016-07-22 14:00] VITALS: BP 118/70; PULSE 78; RESP 18
[2016-07-22] MEDS: morphine 2 MG INJ IV PRN (14:11)
[2016-07-22 20:07] VITALS: BP 126/77; RESP 20
[2016-07-23] MEDS: morphine 2 MG INJ IV PRN ×3 (00:45→21:07)
[2016-07-23] MEDS: PANTOPRAZOLE 40 MG INJ IV SCH (05:09)
[2016-07-23] MEDS: LEVOTHYROXINE 100 MCG VIAL IV SCH (05:10)
[2016-07-23 07:40] VITALS: BP 112/72; RESP 17
[2016-07-23] MEDS: ATENOLOL 25 MG TAB PO SCH (08:39)
[2016-07-23] MEDS: D5W-0.45 NACL + KCL 20 MEQ 1,000 ML IV SCH (10:43)
--- NOTE | 2016-07-23 11:42 | PN ---
Date/Time of Note Date/Time of Note DATE: 07/23/16 TIME: 11:42 Assessment/Plan VTE Prophylaxis VTE Prophylaxis Intervention: SCD's Lines/Catheters IV [facility]ter Type (from [facility]): Peripheral IV Urinary Cath still in place: No Assessment/Plan Assessment/Plan 55 year-old man 1. POD# 17 s/p laparoscopic reversal of previous colostomy. MRCP negative for even pancreatic inflammation. SBFT negative for obstruction, BMs Lipase trending down slowly and pancreatitis of unclear etiology resolving clinically On full liquid,and s/p removal of ZAINAB drain yesterday. Will plan to d/c IVF once po intake better Follow up with General surgery for d/c planning hopefully tomorrow. 2. Acute Pancreatitis: unclear etiology, CT non conclusive, MRCP and FLP wnl. Improving slowly. On Full liquid . 3. Hypertension: well-controlled. Continue hydralazine prn. 4. Gastroesophageal reflux disease. Continue Protonix IV 5. Hyperlipidemia: holding statins for now. 6. Hypothyroidism: Continue IV Synthroid for now Prophylaxis: SCDs for DVT prophylaxis, Protonix for GI prophylaxis Disposition: Full liquid, f/u with General Surgery for hopefully d/c planning tomorrow. Subjective 24 Hr Interval Summary Free Text/Dictation Patient doing OK No further N/V so far on full liquid ZAINAB drain removed yesterday Hopefully, will be able to advance diet Exam/Review of Systems Vital Signs Vitals Vital Signs Date Time Temp Pulse Resp B/P Pulse Ox O2 Delivery O2 Flow Rate FiO2 07/23/16 07:40 98.6 75 17 112/72 96 07/22/16 14:00 Room Air Intake and Output 07/22/16 07/22/16 07/23/16 15:00 23:00 07:00 Intake Total 410 ml 900 ml 1000 ml Output Total 800 ml 650 ml Balance 410 ml 100 ml 350 ml Exam Constitutional: alert, oriented, well developed Respiratory: clear to auscultation, normal air movement Cardiovascular: nl pulses, regular rate and rhythm Gastrointestinal: non-tender, soft Musculoskeletal: nl extremities to inspection Extremities: normal pulses, other (no edema, clubbing or cyanosis ) Neurological: POWDER BLENDER AND POURER II-XII intact, nl mental status, nl speech, nl strength Results Result Diagram: 07/22/16 0445 07/22/165 Results 24 hrs Laboratory Tests Test 07/23/16 05:06 Amylase Level 189 H Lipase 707 H Medications Medications Current Medications Naloxone HCl (Narcan) 0.2 mg PRN PRN IV DECREASED REPIRATORY RATE; Start at 20:00 Oxycodone/ Acetaminophen (Percocet (5/ 325)) 1 tab Q4H PRN PO PAIN LEVEL 1-5 Last administered on 07/14/16 12:04; Admin Dose 1 TAB; Start 07/06/16 at 20:00 Oxycodone/ Acetaminophen (Percocet (5/ 325)) 2 tab Q4H PRN PO PAIN LEVEL 6-10; Start 07/06/16 at 20:00 Ondansetron HCl (Zofran Inj) 4 mg Q6H PRN IV NAUSEA AND/OR VOMITING Last administered on 07/15/16 22:45; Admin Dose 4 MG; Start 07/06/16 at 20:00 Diphenhydramine HCl (Benadryl) 25 mg Q6H PRN IV ITCHING Last administered on 06:18; Admin Dose 25 MG; Start 07/06/16 at 20:00 Hydralazine HCl (Apresoline) 10 mg Q6H PRN IV if SBP greater than 150 Last administered on 07/12/16 12:54; Admin Dose 10 MG; Start 07/08/16 at 20:30 Morphine Sulfate (morphine) 1 mg Q3H PRN IV for mild pain Last administered on 07/23/16 09:59; Admin Dose 1 MG; Start 07/08/16 at 20:30; Status Future hold Morphine Sulfate (morphine) 2 mg Q3H PRN IV for moderate to severe pain Last administered on 07/16/16 18:15; Admin Dose 2 MG; Start 07/08/16 at 20:30; Status Future hold Atenolol (Tenormin) 25 mg DAILY PO Last administered on 07/23/16 08:39; Admin Dose 25 MG; Start 07/12/16 at 10:00 Levothyroxine Sodium (Synthroid Iv) 37.5 mcg DAILY@06 IV Last administered on 05:10; Admin Dose 37.5 MCG; Start 07/18/16 at 12:00 Pantoprazole 40 mg 40 mg DAILY@06 IV Last administered on 07/23/16 05:09; Admin Dose 40 MG; Start 07/21/16 at 05:30 Potassium Chloride/Dextrose/ Sod Cl (D5-1/2ns + KCl 20 Meq) 1,000 ml @ 50 mls/ hr Q20H IV Last administered on 07/23/16 10:43; Admin Dose 50 MLS/HR; Start at 17:00 MARY CHAVEZ Jul 23, 2016 11:42
--- NOTE | 2016-07-23 12:21 | PN ---
Date/Time of Note Date/Time of Note DATE: 07/23/16 TIME: 12:19 Assessment/Plan Lines/Catheters IV Catheter Type (from Nrsg): Peripheral IV Urinary Cath still in place: No Exam/Review of Systems Vital Signs Vitals Vital Signs Date Time Temp Pulse Resp B/P Pulse Ox O2 Delivery O2 Flow Rate FiO2 07/23/16 07:40 98.6 75 17 112/72 96 07/22/16 14:00 Room Air Intake and Output 07/22/16 07/22/16 07/23/16 15:00 23:00 07:00 Intake Total 410 ml 900 ml 1000 ml Output Total 800 ml 650 ml Balance 410 ml 100 ml 350 ml Results Result Diagram: 07/22/16 0445 07/22/16 0445 Results 24 hrs Laboratory Tests Test 07/23/16 05:06 Amylase Level 189 H Lipase 707 H Medications Medications Current Medications Naloxone HCl (Narcan) 0.2 mg PRN PRN IV DECREASED REPIRATORY RATE; Start at 20:00 Oxycodone/ Acetaminophen (Percocet (5/ 325)) 1 tab Q4H PRN PO PAIN LEVEL 1-5 Last administered on 07/14/16 12:04; Admin Dose 1 TAB; Start 07/06/16 at 20:00 Oxycodone/ Acetaminophen (Percocet (5/ 325)) 2 tab Q4H PRN PO PAIN LEVEL 6-10; Start 07/06/16 at 20:00 Ondansetron HCl (Zofran Inj) 4 mg Q6H PRN IV NAUSEA AND/OR VOMITING Last administered on 07/15/16 22:45; Admin Dose 4 MG; Start 07/06/16 at 20:00 Diphenhydramine HCl (Benadryl) 25 mg Q6H PRN IV ITCHING Last administered on 06:18; Admin Dose 25 MG; Start 07/06/16 at 20:00 Hydralazine HCl (Apresoline) 10 mg Q6H PRN IV if SBP greater than 150 Last administered on 07/12/16 12:54; Admin Dose 10 MG; Start 07/08/16 at 20:30 Morphine Sulfate (morphine) 1 mg Q3H PRN IV for mild pain Last administered on 07/23/16 09:59; Admin Dose 1 MG; Start 07/08/16 at 20:30; Status Future hold Morphine Sulfate (morphine) 2 mg Q3H PRN IV for moderate to severe pain Last administered on 07/16/16 18:15; Admin Dose 2 MG; Start 07/08/16 at 20:30; Status Future hold Atenolol (Tenormin) 25 mg DAILY PO Last administered on 07/23/16 08:39; Admin Dose 25 MG; Start 07/12/16 at 10:00 Levothyroxine Sodium (Synthroid Iv) 37.5 mcg DAILY@06 IV Last administered on 05:10; Admin Dose 37.5 MCG; Start 07/18/16 at 12:00 Pantoprazole 40 mg 40 mg DAILY@06 IV Last administered on 07/23/16 05:09; Admin Dose 40 MG; Start 07/21/16 at 05:30 Potassium Chloride/Dextrose/ Sod Cl (D5-1/2ns + KCl 20 Meq) 1,000 ml @ 50 mls/ hr Q20H IV Last administered on 07/23/16 10:43; Admin Dose 50 MLS/HR; Start at 17:00 MARY CHAVEZ Jul 23, 2016 12:21
[2016-07-23] MEDS: ONDANSETRON 4 MG INJ IV PRN (15:08)
--- NOTE | 2016-07-23 16:07 | PN ---
DATE: A 55-year-old gentleman status post laparotomy, closure of colostomy. 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 SUBJECTIVE: Complains of pain and tightness in the right flank area posteriorly and also has vomite d today in the bathroom. He states that probably the smell of the bathroom made him vomit. OBJECTIVE: VITAL SIGNS: Temperature 98.6, heart rate 75, respirations 17, blood pressure 112/72, saturation 96 % on room air. ABDOMEN: Flat. Bowel sounds are slightly hyperactive. The patient had a bowel movement today morn ing, liquid. Wound is clean. EXTREMITIES: Calf tenderness does not exist. LABORATORY DATA: Today, lipase is 707, high. Amylase is 189, high. Total bilirubin is 1.6. Indir ect bilirubin is 1.6. WBC today is 13,500 with 77.5% neutrophils. It has increased since yesterday . ASSESSMENT: Status post closure of colostomy, later on developed pancreatitis. Still the lipase an d amylase are high today. The patient on full liquids. PLAN: Continue full liquids. Repeat CBC, amylase and lipase tomorrow. Dictated By: SIRISHA SALEH MD PS/NTS Conf#: [id number] DID#: [id number]
[2016-07-23 19:36] VITALS: BP 124/77; RESP 18
[2016-07-24] MEDS: OXYCODONE/ACETAMINOPHEN (5/325) TAB PO PRN ×3 (00:13→22:48)
[2016-07-24 00:34] VITALS: BP 128/64; PULSE 78; RESP 16
[2016-07-24] MEDS: PANTOPRAZOLE 40 MG INJ IV SCH (05:12)
[2016-07-24] MEDS: D5W-0.45 NACL + KCL 20 MEQ 1,000 ML IV SCH (05:12)
[2016-07-24] MEDS: LEVOTHYROXINE 100 MCG VIAL IV SCH (05:13)
[2016-07-24 05:54] LABS: ADD SCAN DIFF NO
[2016-07-24 08:17] VITALS: BP 100/64; RESP 16
[2016-07-24] MEDS: ATENOLOL 25 MG TAB PO SCH (08:21)
--- NOTE | 2016-07-24 09:42 | PN ---
Date/Time of Note Date/Time of Note DATE: 07/24/16 TIME: 09:41 Assessment/Plan VTE Prophylaxis VTE Prophylaxis Intervention: SCD's Lines/Catheters IV [facility] ([facility]): Peripheral IV Urinary Cath still in place: No Assessment/Plan Assessment/Plan 55 year-old man 1. POD# 18 s/p laparoscopic reversal of previous colostomy. MRCP negative for even pancreatic inflammation. SBFT negative for obstruction, BMs Lipase trending down slowly and pancreatitis of unclear etiology resolving clinically On full liquid. Will plan to d/c IVF once po intake better Follow up with General surgery for d/c planning hopefully Monday at the latest. 2. Acute Pancreatitis: unclear etiology, CT non conclusive, MRCP and FLP wnl. Improving slowly. 3. Hypertension: well-controlled. Continue hydralazine prn. 4. Gastroesophageal reflux disease. Continue Protonix IV 5. Hyperlipidemia: holding statins for now. 6. Hypothyroidism: Continue IV Synthroid for now Prophylaxis: SCDs for DVT prophylaxis, Protonix for GI prophylaxis Disposition: Continue Full liquid, f/u with General Surgery for hopefully d/c planning Monday? Subjective 24 Hr Interval Summary Free Text/Dictation Patient reports vomiting yesterday 3 hrs after lunch. since then again tolerating full liquid CBC wnl and amylase lipase keep trending down No abdo pain today Exam/Review of Systems Vital Signs Vitals Vital Signs Date Time Temp Pulse Resp B/P Pulse Ox O2 Delivery O2 Flow Rate FiO2 07/24/16 08:17 98.0 69 16 100/64 100 07/24/16 00:34 Room Air Intake and Output 07/23/16 07/23/16 07/24/16 15:00 23:00 07:00 Intake Total 150 ml 850 ml 350 ml Output Total 650 ml 620 ml Balance 150 ml 200 ml -270 ml Exam Constitutional: alert, oriented, well developed Respiratory: clear to auscultation, normal air movement Cardiovascular: nl pulses, regular rate and rhythm Gastrointestinal: other (erick in place and c/d/i ), soft Musculoskeletal: nl extremities to inspection, nl gait and stance Extremities: normal pulses, other (no edema, clubbing or cyanosis ) Neurological: VACCINE SPECIALIST II-XII intact, nl mental status, nl speech, nl strength Results Result Diagram: 4/21/17 0445 4/21/17 0445 Results 24 hrs Laboratory Tests Test 07/24/16 04:51 Amylase Level 168 H Lipase 529 H Medications Medications Current Medications Naloxone HCl (Narcan) 0.2 mg PRN PRN IV DECREASED REPIRATORY RATE; Start at 20:00 Oxycodone/ Acetaminophen (Percocet (5/ 325)) 1 tab Q4H PRN PO PAIN LEVEL 1-5 Last administered on 07/24/16 00:13; Admin Dose 1 TAB; Start 07/06/16 at 20:00 Oxycodone/ Acetaminophen (Percocet (5/ 325)) 2 tab Q4H PRN PO PAIN LEVEL 6-10; Start 07/06/16 at 20:00 Ondansetron HCl (Zofran Inj) 4 mg Q6H PRN IV NAUSEA AND/OR VOMITING Last administered on 07/23/16 15:08; Admin Dose 4 MG; Start 07/06/16 at 20:00 Diphenhydramine HCl (Benadryl) 25 mg Q6H PRN IV ITCHING Last administered on 06:18; Admin Dose 25 MG; Start 07/06/16 at 20:00 Hydralazine HCl (Apresoline) 10 mg Q6H PRN IV if SBP greater than 150 Last administered on 07/12/16 12:54; Admin Dose 10 MG; Start 07/08/16 at 20:30 Morphine Sulfate (morphine) 1 mg Q3H PRN IV for mild pain Last administered on 07/23/16 09:59; Admin Dose 1 MG; Start 07/08/16 at 20:30; Status Future hold Morphine Sulfate (morphine) 2 mg Q3H PRN IV for moderate to severe pain Last administered on 07/23/16 21:07; Admin Dose 2 MG; Start 07/08/16 at 20:30; Status Future hold Atenolol (Tenormin) 25 mg DAILY PO Last administered on 07/23/16 08:39; Admin Dose 25 MG; Start 07/12/16 at 10:00 Levothyroxine Sodium (Synthroid Iv) 37.5 mcg DAILY@06 IV Last administered on 05:13; Admin Dose 37.5 MCG; Start 07/18/16 at 12:00 Pantoprazole 40 mg 40 mg DAILY@06 IV Last administered on 07/24/16 05:12; Admin Dose 40 MG; Start 07/21/16 at 05:30 Potassium Chloride/Dextrose/ Sod Cl (D5-1/2ns + KCl 20 Meq) 1,000 ml @ 50 mls/ hr Q20H IV Last administered on 07/24/16 05:12; Admin Dose 50 MLS/HR; Start at 17:00 MARY CHAVEZ Jul 24, 2016 09:42
[2016-07-24 09:46] LABS: BASOPHIL # 0.1 10^3/ul (0.0-0.1); BASOPHILS % 0.5 % (0.0-2.0); EOSINOPHILS # 0.3 10^3/ul (0.0-0.5); EOSINOPHILS % 3.5 % (0.0-7.0); HEMATOCRIT 32.9 % (42.0-52.0); LYMPHOCYTES # 1.3 10^3/ul (0.8-2.9); LYMPHOCYTES % 14.4 % (15.0-51.0); MEAN CORPUSCULAR HEMOGLOBIN 29.6 pg (29.0-33.0); MEAN CORPUSCULAR HGB CONC 33.4 g/dl (32.0-37.0); MEAN CORPUSCULAR VOLUME 88.4 fl (82.0-101.0); MEAN PLATELET VOLUME 10.7 fl (7.4-10.4); MONOCYTE # 0.6 10^3/ul (0.3-0.9); MONOCYTES % 6.2 % (0.0-11.0); NEUTROPHIL # 6.9 10^3/ul (1.6-7.5); PLATELET COUNT 531 10^3/UL (140-415); RED BLOOD COUNT 3.72 10^6/ul (4.70-6.10); WHITE BLOOD COUNT 9.2 10^3/ul (4.8-10.8)
--- NOTE | 2016-07-24 11:09 | PDOCDIS ---
Discharge Instructions CONDITION Patient Condition: Stable HOME CARE INSTRUCTIONS: Diet Instructions: RegularSpecial Diet: soft diet ACTIVITY: Activity Restrictions: Slowly Increase Activity Rest between Activity Avoid heavy lifting Do not operate Machinery Do not operate Power Tool Avoid Heavy Housework Bathing Restrictions: Shower FOLLOW UP/APPOINTMENTS Appointments Follow up with PCP within 1 week Follow up with Dr Adkins in 1 to 2 weeks MARY CHAVEZ Jul 24, 2016 11:09
[2016-07-24] MEDS ORDERED: OXYC-279 PO (11:11)
[2016-07-24] MEDS ORDERED: DOCU-144 PO (11:11)
--- NOTE | 2016-07-24 16:24 | PN ---
DATE: SUBJECTIVE: Feels better today. No abdominal pain, has tolerated liquid diet. No nausea, no vomit ing. Has been passing a lot of gas. No bowel movement today. OBJECTIVE: VITAL SIGNS: [id number], heart rate is 69, respiration 16, blood pressure 100/64, saturation 100 % on room air. ABDOMEN: Soft. LABORATORIES: Lipase is down to 529. This still is high. Amylase is down to 168. This still is h igh. WBC dropped today to 9200, which is normal with 75% segmented, which is normal. Hemoglobin 11 , hematocrit 32.9. ASSESSMENT AND PLAN: This 55-year-old is status post exploratory laparotomy, closure of colostomy. Following that, the patient developed pancreatitis and nausea and vomiting and now the amylase and lipase is coming down. The patient has tolerated full liquid diet today. The amylase and lipase is lower than yesterday, but still is high. We will try to advance diet to soft diet, low fat, low ch olesterol and check if the amylase and lipase goes up if the patient tolerates, maybe the patient wi ll be a candidate for discharge on Monday or Monday. Dictated By: SIRISHA SALEH MD PS/NTS Conf#: [id number] DID#: [id number]
[2016-07-24 19:10] VITALS: BP 104/64; RESP 16
[2016-07-25] MEDS: D5W-0.45 NACL + KCL 20 MEQ 1,000 ML IV SCH (01:02)
[2016-07-25] MEDS: DIPHENHYDRAMINE 50 MG INJ IV PRN (01:16)
[2016-07-25] MEDS: PANTOPRAZOLE 40 MG INJ IV SCH (05:40)
[2016-07-25] MEDS: LEVOTHYROXINE 100 MCG VIAL IV SCH (05:40)
[2016-07-25 07:32] VITALS: BP 106/75; RESP 19
[2016-07-25] MEDS: ATENOLOL 25 MG TAB PO SCH (08:35)
[2016-07-25 10:07] VITALS: BP 131/77; RESP 20
--- NOTE | 2016-07-25 11:16 | PN ---
Date/Time of Note Date/Time of Note DATE: 07/25/16 TIME: 11:09 Assessment/Plan VTE Prophylaxis VTE Prophylaxis Intervention: SCD's Lines/Catheters IV Catheter Type (from Nrs): Peripheral IV Urinary Cath still in place: No Assessment/Plan Assessment/Plan 55 year-old man 1. POD# 19 s/p laparoscopic reversal of previous colostomy. MRCP negative for even pancreatic inflammation. SBFT negative for obstruction, BMs Lipase trending down slowly and pancreatitis of unclear etiology resolving clinically Tolerating soft diet so far, d/c IVF and d/c home today with for wound care old colostomy site. Follow up with General surgery, Dr Adkins in 1 week. 2. Acute Pancreatitis: unclear etiology, CT non conclusive, MRCP and FLP wnl. Improving slowly. Tolerating po and clinically asymptomatic. 3. Hypertension: well-controlled. Back on Atenolol 4. Gastroesophageal reflux disease. Resume po PPI at home. 5. Hyperlipidemia: resume statins at home. 6. Hypothyroidism: Resume po Synthroid at home. Prophylaxis: SCDs for DVT prophylaxis, Protonix for GI prophylaxis Disposition: Soft diet, d/c home with Home Health, follow up with General Surgery, Dr Adkins in 1 to 2 weeks. Subjective 24 Hr Interval Summary Free Text/Dictation Patient doing much better tolerating soft diet and no pain, N/V D/c plan today if ok with Gen Surgery Exam/Review of Systems Vital Signs Vitals Vital Signs Date Time Temp Pulse Resp B/P Pulse Ox O2 Delivery O2 Flow Rate FiO2 07/25/16 07:32 98.7 75 19 106/75 98 07/24/16 00:34 Room Air Intake and Output 07/24/16 07/24/16 07/25/16 14:59 22:59 06:59 Intake Total 1300 ml 1000 ml Output Total 1000 ml 700 ml Balance 300 ml 300 ml Exam Constitutional: alert, oriented, well developed Respiratory: clear to auscultation, normal air movement Cardiovascular: nl pulses, regular rate and rhythm Gastrointestinal: non-tender, other (old colostomy site with dressing, also previous ZAINAB site with dressing ), soft, surgical scars (with staple C/D/i ) Musculoskeletal: nl extremities to inspection Extremities: normal pulses, other (no edema, clubbing or cyanosis ) Neurological: [employer] II-XII intact, nl mental status, nl speech, nl strength Results Result Diagram: 07/24/16 0451 07/22/16 0445 Results 24 hrs Laboratory Tests Test 07/25/16 04:30 Amylase Level 162 H Lipase 444 H Medications Medications Current Medications Naloxone HCl (Narcan) 0.2 mg PRN PRN IV DECREASED REPIRATORY RATE; Start at 20:00 Oxycodone/ Acetaminophen (Percocet (5/ 325)) 1 tab Q4H PRN PO PAIN LEVEL 1-5 Last administered on 07/24/16 16:34; Admin Dose 1 TAB; Start 07/06/16 at 20:00 Oxycodone/ Acetaminophen (Percocet (5/ 325)) 2 tab Q4H PRN PO PAIN LEVEL 6-10 Last administered on 07/24/16 22:48; Admin Dose 2 TAB; Start 07/06/16 at 20:00 Ondansetron HCl (Zofran Inj) 4 mg Q6H PRN IV NAUSEA AND/OR VOMITING Last administered on 07/23/16 15:08; Admin Dose 4 MG; Start 07/06/16 at 20:00 Diphenhydramine HCl (Benadryl) 25 mg Q6H PRN IV ITCHING Last administered on 01:16; Admin Dose 25 MG; Start 07/06/16 at 20:00 Hydralazine HCl (Apresoline) 10 mg Q6H PRN IV if SBP greater than 150 Last administered on 07/12/16 12:54; Admin Dose 10 MG; Start 07/08/16 at 20:30 Morphine Sulfate (morphine) 1 mg Q3H PRN IV for mild pain Last administered on 07/23/16 09:59; Admin Dose 1 MG; Start 07/08/16 at 20:30; Status Future hold Morphine Sulfate (morphine) 2 mg Q3H PRN IV for moderate to severe pain Last administered on 07/23/16 21:07; Admin Dose 2 MG; Start 07/08/16 at 20:30; Status Future hold Atenolol (Tenormin) 25 mg DAILY PO Last administered on 07/23/16 08:39; Admin Dose 25 MG; Start 07/12/16 at 10:00 Levothyroxine Sodium (Synthroid Iv) 37.5 mcg DAILY@06 IV Last administered on 05:40; Admin Dose 37.5 MCG; Start 07/18/16 at 12:00 Pantoprazole 40 mg 40 mg DAILY@06 IV Last administered on 07/25/16 05:40; Admin Dose 40 MG; Start 07/21/16 at 05:30 Potassium Chloride/Dextrose/ Sod Cl (D5-1/2ns + KCl 20 Meq) 1,000 ml @ 50 mls/ hr Q20H IV Last administered on 07/25/16 01:02; Admin Dose 50 MLS/HR; Start at 17:00 MARY CHAVEZ Jul 25, 2016 11:16
[2016-07-25] MEDS: OXYCODONE/ACETAMINOPHEN (5/325) TAB PO PRN ×2 (15:13→20:24)
[2016-07-25 20:29] VITALS: BP 124/83; PULSE 86; RESP 16
[2016-07-26] MEDS ORDERED: PANTOPRAZOLE (EC) 40 MG TAB PO SCH (06:00)
--- NOTE | 2016-08-09 15:04 | DS ---
DATE OF ADMISSION: 07/06/2016 DATE OF DISCHARGE: 07/25/2016 CHIEF COMPLAINT ON ADMISSION: Elective colostomy reversal. BRIEF HISTORY OF PRESENTING ILLNESS: This is a 55-year-old male with a colostomy, also with hyperte nsion, hyperlipidemia, and hypothyroidism who was admitted to a medical/surgical bed post colostomy reversal elective done by Dr. Adkins. HOSPITAL COURSE: The patient was admitted to a medical/surgical bed. He was on Dilaudid [place] WINDER at [facility] and n.p.o. Once he was started on clear liquid diet, his CON[place] WINDER was discontinued. He also has a hi story of hypothyroidism and hypertension for which his medications were converted to IV. The patien t was n.p.o. for a few days until he was passing gas. Then he was started on a clear liquid diet. Unfortunately, within 48 hours, the patient started having abdominal pain, nausea and vomiting; ther efore, he was back to an n.p.o. status. A workup did show that he had acute pancreatitis. He did r eport afterwards that he is an alcohol user, maybe a little too much, and he used to drink before. Therefore, the patient may have actually chronic pancreatitis to start with and exacerbated at this time. He had multiple studies including an MRCP which was negative for any obstructive pattern. He had a small bowel follow through which came back within normal. The patient was having bowel movem ents and passing gas; therefore, his diet was resumed. His pain was very minimal his liver enzymes normalized. His lipase kept trending down. He tolerated up to a soft diet and was finally discharg ed home. Prior to discharge, all his drains were removed. He was, therefore, discharged with home health for wound care. The patient did have a prolonged hospital stay complicated by his slow retur n of bowel activity and, unfortunately, episode of pancreatitis. DISPOSITION: Discharge home with home health. DISCHARGE CONDITION: Stable. DISCHARGE DIET: Regular, soft diet. DISCHARGE ACTIVITY: Slow increase in activity. However, the patient is required to avoid heavy lif ting and avoid heavy housework. He may take showers. FOLLOWUP: The patient is to follow up with his primary care physician within 1 week and follow up w ari Adkins within 1 to 2 weeks. DISCHARGE DIAGNOSES: 1. Status post laparoscopic reversal of previous colostomy. The patient was discharged on postoper ative day #19. 2. Acute pancreatitis, resolving. 3. Hypertension. 4. Gastroesophageal reflux disease. 5. Hyperlipidemia. 6. Hypothyroidism. DISCHARGE MEDICATIONS: 1. Colace 100 mg p.o. b.i.d. p.r.n. constipation. 2. Percocet 5/325 one tab p.o. q.8 hours p.r.n. pain. 3. Atenolol 25 mg p.o. daily. 4. Trilipix 45 mg p.o. daily. 5. Ibuprofen 600 mg p.o. q.12 hours. 6. Synthroid 75 mcg p.o. daily. 7. Omeprazole 20 mg p.o. daily. 8. Zocor 40 mg p.o. at bedtime. Dictated By: MARY MCCRARY/INOCENCIO Conf#: [id number] DID#: [id number]
== END 2016-07-25 21:01 | disposition home or self-care (01) | DRG 329 ==
LOC: REC 09:27 → EDSTATUS 12:30 → MS1 21:45
PROVIDERS: ADMIT Internal Medicine; ATTEND Surgery
PROC: 0DNW0ZZ Release Peritoneum, Open Approach (ICD-10-PCS; 2016-07-06)
PROC: 0DBE0ZZ Excision of Large Intestine, Open Approach (ICD-10-PCS; principal; 2016-07-06 14:30)
DX: Z43.3 Encounter for attention to colostomy (principal); K85.90 Acute pancreatitis without necrosis or infection, unspecified; K56.7 Ileus, unspecified; I10 Essential (primary) hypertension; E78.5 Hyperlipidemia, unspecified; E03.9 Hypothyroidism, unspecified; K21.9 Gastro-esophageal reflux disease without esophagitis; K66.0 Peritoneal adhesions (postprocedural) (postinfection); E87.6 Hypokalemia
CPT/HCPCS: 74000; 74177; 74181; 74240; 74250; 80048; 80053; 80061; 82150; 82962; 83690; 83735; 84100; 85025; 87075; 87086; 88304; C9113; J0295; J0360; J1170; J1200; J2060; J2175; J2270; J2405; J2710; J3010; J3475; J3480; J7120; J7999; Q9967